=== PATIENT | female | born 1945 | race Caucasian/White ===

== ENCOUNTER 2023-10-12 16:06 | Inpatient (IN) ==
--- NOTE | 2023-10-12 16:32 | ED Triage Note ---
Date of Service October 12, 2023 Provider in Triage Author: Clementina Soto History of Present Illness This patient was briefly evaluated while in triage. An abbreviated physical exam was performed. This patient is a 77-year-old Female who presents to the ED for evaluation of indigestion that is worsening and is now chest pain, coughing, and difficulty breathing. Physical Exam CONSTITUTIONAL: in some distress, resting comfortably SKIN: pink, warm, dry CARDIAC: regular rate and rhythm RESPIRATORY: minimal air movement noted, small shallow breaths, 84RA sat. ABDOMEN: + TTP, epigastric pain NEURO: no neuro deficits, alert and oriented x 3 Initial orders for labs and / or imaging were placed and patient was placed in the waiting area until a bed is available. Please see further documentation for the full ED course.
--- NOTE | 2023-10-12 17:06 | Emergency Department Note ---
Impression & Plan Hypoxic respiratory failure, Cardiogenic shock, Acute hypotension ED Provider Note NAME: NEREYDA BAEZ AGE: 77 SEX: F : 1945 ARRIVES VIA: Walk-In INFORMANT: Patient ED PROVIDER(S): Jayjay Lutz DO CHIEF COMPLAINT: shortness of breath and chest pain HPI: Patient is a 77-year-old female who presents to the ER for symptoms that started today around 12:00 midsternal with chest pain. It is worse with twisting, turning, bending, and breathing. Describes it as a sharp pain. Does have associated shortness of breath. She has a cough and congestion which started around 3 PM. Admits to some epigastric abdominal pain. No nausea or vomiting. No dysuria, urgency, or frequency. No other exacerbating or remitting factors. Normally does not wear oxygen. No recent trips or travel. No history of blood clots, coughing up blood or history of clotting disorders. ADDITIONAL HISTORY OBTAINED: Per HPI Chronic Medical/Social Conditions Affecting Care: Per HPI PAST MEDICAL HISTORY:See Below PAST SURGICAL HISTORY:See Below FAMILY HISTORY:See Below SOCIAL HISTORY:See Below HOME MEDICATIONS:See Below ALLERGIES:See Below VITALS:See Below PHYSICAL EXAMINATION: GENERAL: Sitting up in bed, alert, well appearing, well nourished, no distress, non-toxic EYE EXAM: normal conjunctiva. OROPHARYNX: mucous membranes are moist NECK: supple, no nuchal rigidity, no adenopathy, non-tender CHEST: Reproducible anterior chest wall pain over top of sternum LUNGS: Clear to auscultation. Normal chest wall mechanics HEART: no murmurs, S1 normal and S2 normal ABDOMEN: abdomen soft, non-tender, normo-active bowel sounds, no masses, no rebound or guarding. UPPER EXTREMITIES: upper extremities are grossly normal. LOWER EXTREMITIES: No pitting edema. Calves are equal bilateral NEURO EXAM: Normal sensorium, cranial nerves II-XII grossly intact, normal speech, no gross weakness of arms, no gross weakness of legs. MEDICAL DECISION MAKING: Patient is a 77-year-old female who presents ER for above-stated complaint. Patient was brought in for chest pain which started around 12 PM. Shortness of breath then followed around 3 PM. Upon presentation to the ER she was found to be hypoxic and became tachycardic, tachypneic, and mentation deteriorated to the point where she would moan to sternal rub. She was moved from A10 to B1. At this point she was intubated with ketamine and rocuronium. Her EKG did show a new left bundle. Repeat EKG showed a widened QRS. I did discuss with the prior to intubation and patient is a full code. Patient was given calcium and bicarb as I believed it to be a sinus tachycardia with a widened QRS. Following the bicarb and calcium QRS did shrink and did appear to be consistent with sinus tachycardia. Dr. Massey did review this and agreed that he favored it was a sinus tach. Epinephrine was titrated up slightly. Heart alert was called due to the new left bundle in the setting of chest pain and new onset CHF. Patient was evaluated by Dr. Plascencia and elected to take her to the [facility]. Do favor the hypoxia was secondary to the pulmonary edema shown on the chest x-ray. Patient was also placed on insulin drip due to elevated blood sugars in the 400s. Did consider PE and CT angio was ordered but patient was too unstable to go to CT and once she stabilized I discussed this with cardiology and I did favor that this was most likely cardiac in nature as opposed to PE. Favor CHF/pulmonary edema is causing the hypoxia. Interventional cardiology would prefer to go to [facility] and then CTA afterwards. Patient was taken up emergently to [facility]. Discussed with the hospitalist as well for further evaluation management treatment Consults/Care Managements Discussions: Per [facility] Triage Nursing notes reviewed. Limited review of prior medical records performed Vital Signs: reviewed and remarkable for hypoxic and tachy Differential diagnosis: Differential diagnoses includes but is not limited to pneumonia, bronchitis, COPD/Asthma exacerbation, pneumothorax, pulmonary embolism, congestive heart failure, acute coronary syndrome ER treatment provided: See below Diagnostics interpreted by me include EKG and cardiac monitoring as listed below: -Cardiac Monitoring: An order was placed for continuous cardiac monitoring. The monitor shows a rate of 121 with sinus rhythm. -ECG: Sinus tachycardia rate of 120 Left axis No PVCs Septal Q waves ST depressions in the lateral leads as well as T wave inversions as well as ST depressions in T wave inversions in the high lateral leads Sinus tachycardia rate no 136 Left bundle branch block Wide-complex QRS at 574 ST depressions in the lateral leads as well as the high lateral leads -Laboratory studies:Interpreted by me as stated above in MDM and shown below. Imaging studies: Xrays: As interpreted by me: Portable AP upright 1 view of the chest shows pulmonary edema Portable AP upright 1 view the chest shows worsening pulmonary edema with a ET tube in place CTs show: none Procedures:EM PROCEDURE NOTE - Endotracheal Intubation PROCEDURE NOTE: Informed consent was obtained by the . Verify Correct Patient: yes Procedure: Endotracheal intubation Indication: Respiratory failure hypoxia The procedure was done emergently. Description of the Procedure: The patient was seen and properly identified. The patient was pre-oxygenated and intubated after rapid sequence induction with meds: Rocuronium and ketamine. Intubation was performed using a glide scope blade and a 7.5 cuffed endotracheal tube. The tube was visualized going through the cords and secured with the 24 cm ciera at the lips. The patient had good bilateral breath sounds in the axillae with good chest rise. Proper ET tube placement was confirmed by end tidal CO2 detector. The patient tolerated the procedure well. Critical Care: I have personally spent 80 minutes of critical care time in the direct management of this patient. This includes bedside care, interpretation of diagnostic studies, and testing, discussion with consultants, patient, and family members, and other required patient management activities. This 80 minutes is in excess of all separately billable procedures. Past Med/Surg History Medical History Stroke Family History Mother Stroke Diabetes Myocardial infarction Father Myocardial infarction Sister Diabetes Brother Diabetes Social History Smoking Status: Unknown if ever smoked Hx Alcohol Use: No Hx Substance Use: No Preferred Language: Swedish Communication Ability Comment: intubated sedated Shirt Folder Required: No Beliefs That Will Affect Care: None marital status: current occupational status: retired current occupation: former cook at [email or web address] How many Children do You have: 4 Allergies Allergies Allergy/AdvReac Type Severity Reaction Status Date / Time No Known Allergies Allergy Unknown NONE KNOWN Verified 04/15/22 09:04 Home Meds Home Medications Medication Instructions Recorded Confirmed aspirin 81 mg chewable tablet 81 mg PO DAILY 03/11/22 10/12/23 atorvastatin 20 mg tablet 20 mg PO DAILY 03/11/22 10/12/23 lisinopril 20 1 tab PO DAILY 03/11/22 10/12/23 mg-hydrochlorothiazide 12.5 mg tablet metformin 1,000 mg tablet 1,000 mg PO BID 03/11/22 10/12/23 pantoprazole 40 mg tablet,delayed 40 mg PO DAILY 03/11/22 10/12/23 release insulin glargine 100 unit/mL (3 50 unit subcut QPM 03/13/22 10/12/23 mL) subcutaneous pen (Lantus Solostar U-100 Insulin) alendronate 70 mg tablet 70 mg PO WK 10/12/23 10/12/23 dulaglutide 0.75 mg/0.5 mL 0.75 mg subcut WK 10/12/23 10/12/23 subcutaneous pen injector (Trulicity) famotidine 20 mg tablet 20 mg PO BID 10/12/23 10/12/23 liraglutide 0.6 mg/0.1 mL (18 mg/3 1.2 mg subcut DAILY 10/12/23 10/12/23 mL) subcutaneous pen injector (Victoza 2-Sancho) Results & Data (ED) Vital Signs Vital Signs - 24 hr 10/12/23 16:32 10/12/23 16:38 10/12/23 17:14 Temperature 36.8 C Temperature Source Temporal Artery Scan Pulse Rate 117 H 142 H Pulse Rate from SpO2 Sensor Respiratory Rate 18 22 Respiratory Effort / Characteristics Non-Labored Spontaneous Respiratory Depth Normal Blood Pressure 127/85 Blood Pressure Mean 99 Blood Pressure Position Sitting Pulse Oximetry 86 L 86 L Oxygen Delivery Method Room Air Oxygen Flow Rate 0 Fraction of Inspired Oxygen Sepsis Recent Fever Within 48 Hours No Sepsis New/Unexplained Change in Mental Status N/A Sepsis Action Taken by Nursing No Action Required End-Tidal CO2 Oxygen Flow Rate - Titration 3 Pulse Oximetry Post Tiitration 91 10/12/23 17:15 10/12/23 17:18 10/12/23 17:19 Temperature Temperature Source Pulse Rate 140 H 143 H 140 H Pulse Rate from SpO2 Sensor Respiratory Rate 22 26 H Respiratory Effort / Characteristics Respiratory Depth Blood Pressure Blood Pressure Mean Blood Pressure Position Pulse Oximetry Oxygen Delivery Method Oxygen Flow Rate Fraction of Inspired Oxygen Sepsis Recent Fever Within 48 Hours Sepsis New/Unexplained Change in Mental Status Sepsis Action Taken by Nursing End-Tidal CO2 Oxygen Flow Rate - Titration Pulse Oximetry Post Tiitration 10/12/23 17:19 10/12/23 17:20 10/12/23 17:22 Temperature Temperature Source Pulse Rate 138 H 133 H Pulse Rate from SpO2 Sensor Respiratory Rate 28 H 33 H Respiratory Effort / Characteristics Respiratory Depth Blood Pressure Blood Pressure Mean 95 Blood Pressure Position Pulse Oximetry Oxygen Delivery Method Oxygen Flow Rate Fraction of Inspired Oxygen Sepsis Recent Fever Within 48 Hours Sepsis New/Unexplained Change in Mental Status Sepsis Action Taken by Nursing End-Tidal CO2 Oxygen Flow Rate - Titration Pulse Oximetry Post Tiitration 10/12/23 17:22 10/12/23 17:22 10/12/23 17:25 Temperature Temperature Source Pulse Rate 124 H Pulse Rate from SpO2 Sensor Respiratory Rate 35 H Respiratory Effort / Characteristics Respiratory Depth Blood Pressure 98/71 L 98/71 L Blood Pressure Mean 73 73 Blood Pressure Position Pulse Oximetry Oxygen Delivery Method Oxygen Flow Rate Fraction of Inspired Oxygen Sepsis Recent Fever Within 48 Hours Sepsis New/Unexplained Change in Mental Status Sepsis Action Taken by Nursing End-Tidal CO2 Oxygen Flow Rate - Titration Pulse Oximetry Post Tiitration 10/12/23 17:30 10/12/23 17:34 10/12/23 17:34 Temperature Temperature Source Pulse Rate 120 H 61 Pulse Rate from SpO2 Sensor Respiratory Rate 26 H 12 Respiratory Effort / Characteristics Respiratory Depth Blood Pressure 77/59 L Blood Pressure Mean 63 Blood Pressure Position Pulse Oximetry Oxygen Delivery Method Oxygen Flow Rate Fraction of Inspired Oxygen Sepsis Recent Fever Within 48 Hours Sepsis New/Unexplained Change in Mental Status Sepsis Action Taken by Nursing End-Tidal CO2 Oxygen Flow Rate - Titration Pulse Oximetry Post Tiitration 10/12/23 17:35 10/12/23 17:36 10/12/23 17:39 Temperature Temperature Source Pulse Rate 109 H 57 L Pulse Rate from SpO2 Sensor Respiratory Rate 20 Respiratory Effort / Characteristics Respiratory Depth Blood Pressure 100/74 Blood Pressure Mean 84 Blood Pressure Position Pulse Oximetry Oxygen Delivery Method Oxygen Flow Rate Fraction of Inspired Oxygen Sepsis Recent Fever Within 48 Hours Sepsis New/Unexplained Change in Mental Status Sepsis Action Taken by Nursing End-Tidal CO2 Oxygen Flow Rate - Titration Pulse Oximetry Post Tiitration 10/12/23 17:39 10/12/23 17:39 10/12/23 17:40 Temperature Temperature Source Pulse Rate 130 H 137 H Pulse Rate from SpO2 Sensor 137 H Respiratory Rate 21 20 Respiratory Effort / Characteristics Respiratory Depth Blood Pressure 100/74 Blood Pressure Mean 84 Blood Pressure Position Pulse Oximetry 91 Oxygen Delivery Method Oxygen Flow Rate Fraction of Inspired Oxygen Sepsis Recent Fever Within 48 Hours Sepsis New/Unexplained Change in Mental Status Sepsis Action Taken by Nursing End-Tidal CO2 Oxygen Flow Rate - Titration Pulse Oximetry Post Tiitration 10/12/23 17:40 10/12/23 17:45 10/12/23 17:45 Temperature 35.0 C L Temperature Source Pulse Rate 147 H Pulse Rate from SpO2 Sensor 147 H Respiratory Rate 20 Respiratory Effort / Characteristics Respiratory Depth Blood Pressure 95/54 L 102/70 Blood Pressure Mean 84 84 Blood Pressure Position Pulse Oximetry 99 Oxygen Delivery Method Oxygen Flow Rate Fraction of Inspired Oxygen Sepsis Recent Fever Within 48 Hours Sepsis New/Unexplained Change in Mental Status Sepsis Action Taken by Nursing End-Tidal CO2 39 Oxygen Flow Rate - Titration Pulse Oximetry Post Tiitration 10/12/23 17:50 10/12/23 17:50 10/12/23 17:55 Temperature 36.1 C L 36.5 C Temperature Source Pulse Rate 144 H 140 H Pulse Rate from SpO2 Sensor 144 H 139 H Respiratory Rate 20 20 Respiratory Effort / Characteristics Respiratory Depth Blood Pressure 93/74 L Blood Pressure Mean 80 Blood Pressure Position Pulse Oximetry 97 97 Oxygen Delivery Method Oxygen Flow Rate Fraction of Inspired Oxygen Sepsis Recent Fever Within 48 Hours Sepsis New/Unexplained Change in Mental Status Sepsis Action Taken by Nursing End-Tidal CO2 35 34 Oxygen Flow Rate - Titration Pulse Oximetry Post Tiitration 10/12/23 18:00 10/12/23 18:00 10/12/23 18:05 Temperature 36.7 C 36.9 C Temperature Source Pulse Rate 136 H 127 H Pulse Rate from SpO2 Sensor 136 H 129 H Respiratory Rate 20 20 Respiratory Effort / Characteristics Respiratory Depth Blood Pressure 127/83 Blood Pressure Mean 93 Blood Pressure Position Pulse Oximetry 100 100 Oxygen Delivery Method Oxygen Flow Rate Fraction of Inspired Oxygen Sepsis Recent Fever Within 48 Hours Sepsis New/Unexplained Change in Mental Status Sepsis Action Taken by Nursing End-Tidal CO2 34 28 Oxygen Flow Rate - Titration Pulse Oximetry Post Tiitration 10/12/23 18:05 10/12/23 18:10 10/12/23 18:10 Temperature 36.9 C Temperature Source Pulse Rate 163 H Pulse Rate from SpO2 Sensor 102 H Respiratory Rate 20 20 Respiratory Effort / Characteristics Respiratory Depth Blood Pressure 94/64 L Blood Pressure Mean 76 Blood Pressure Position Pulse Oximetry 96 100 Oxygen Delivery Method Oxygen Flow Rate Fraction of Inspired Oxygen 80 Sepsis Recent Fever Within 48 Hours Sepsis New/Unexplained Change in Mental Status Sepsis Action Taken by Nursing End-Tidal CO2 34 41 Oxygen Flow Rate - Titration Pulse Oximetry Post Tiitration 10/12/23 18:15 Temperature 37.0 C Temperature Source Pulse Rate 155 H Pulse Rate from SpO2 Sensor 139 H Respiratory Rate 20 Respiratory Effort / Characteristics Respiratory Depth Blood Pressure Blood Pressure Mean Blood Pressure Position Pulse Oximetry 95 Oxygen Delivery Method Oxygen Flow Rate Fraction of Inspired Oxygen Sepsis Recent Fever Within 48 Hours Sepsis New/Unexplained Change in Mental Status Sepsis Action Taken by Nursing End-Tidal CO2 29 Oxygen Flow Rate - Titration Pulse Oximetry Post Tiitration Laboratory Data 10/12/23 17:25 10/12/23 19:49 Lab Results 10/12/23 10/12/23 10/12/23 Range/Units 17:25 17:29 17:49 WBC 20.83 H (4.8-10.8) K/ul RBC 5.74 H (4.20-5.40) M/uL Hgb 15.5 (12.0-16.0) g/dl POC Hgb 17.7 H (12.0-16.0) g/dl Hct 49.5 H (37.0-47.0) % POC Hct 52 H (37-47) % MCV 86.2 (80.0-100.0) fL MCH 27.0 (25.0-34.0) pg MCHC 31.3 L (32.0-36.0) g/dL RDW Std Deviation 46.2 (36.4-46.3) fL RDW Coeff of Genie 14.7 H (11.5-14.5) % Plt Count 257 (130-400) K/uL MPV 11.8 (9.4-12.4) fL Neutrophils % (Manual) 68 % Lymphocytes % (Manual) 9 % Monocytes % (Manual) 2 % Neutrophils # (Manual) 14.16 H (1.40-6.50) K/uL Total Absolute Neuts 14.16 H (1.4-6.5) K/uL Lymphocytes # (Manual) 1.87 (1.2-3.4) K/uL Total Abs Lymphocytes 6.25 H (1.2-3.4) K/uL Monocytes # (Manual) 0.42 (0.11-0.59) K/uL Large Granular Lymphs 21 % # Lrg Granular Lymphs 4.37 K/uL PT (9.0-12.0) Seconds INR (0.9-1.1) APTT (21-31) Seconds PTT Ratio POC pH (7.35-7.45) POC pCO2 (35-46) mmHg POC pO2 (80-95) mmHg POC HCO3 (19-24) keyshawn/L POC Base Excess (-9-1.8) keyshawn/L POC ABG O2 Sat (90-95) % VBG pH 7.13 L (7.36-7.41) VBG pCO2 64 H (38-50) mmHg VBG pO2 37 mmHg VBG HCO3 21 mmol/L VBG O2 Saturation < 60.0 % VBG Base Excess -8.8 mEq/L POC Sodium 138 (135-144) mmol/L Sodium 138 (136-145) mmol/L POC Potassium 5.1 H (3.3-5.0) mmol/L Potassium 4.9 (3.5-5.1) mmol/L POC Chloride 107 (101-112) mmol/L Chloride 103 (98-107) mmol/L Carbon Dioxide 21 (21-32) mmol/L POC Total CO2 22 L (24-31) mmol/L Anion Gap 14 H (3-11) POC Anion Gap 15.0 L (16-25) mmol/L POC BUN 43 H (7-18) mg/dl BUN 37 H (6-23) mg/dl Creatinine 1.60 H (0.6-1.2) mg/dl POC Creatinine 1.5 H (0.6-1.3) mg/dl Est Cr Clr Drug Dosing Not Reportable Est GFR ( Amer) 35.7 ml/min Est GFR (Non-Af Amer) 30.8 ml/min BUN/Creatinine Ratio 23.1 H (10-20) Glucose 351 H* (70-99(Fasting)) mg/dl POC Glucose (70-99) mg/dl POC Glucose (other) 355 H* (70-99) mg/dl Estimat Average Glucose 137 mg/dl Hemoglobin A1c 6.4 H (4.5-5.6) % Lactate 8.5 H* (0.4-2.0) mmol/L Calcium 9.6 (8.6-10.3) mg/dl POC Ioniz Calcium Dena 1.09 L (1.12-1.32) mmol/l Phosphorus 3.9 (2.5-4.9) mg/dl Magnesium 2.0 (1.7-2.4) mg/dl Total Bilirubin 0.5 (0.2-1.0) mg/dl AST 35 (13-39) U/L ALT 24 (7-52) U/L Alkaline Phosphatase 60 (34-104) U/L Troponin I High Sens 895.8 H* (0-14) pg/ml Total Protein 8.2 (6.0-8.3) gm/dl Albumin 4.8 (3.4-5.0) gm/dl Globulin 3.4 (2.5-4.0) gm/dl Albumin/Globulin Ratio 1.4 (0.9-2) Lipase 14 (11-82) U/L Procalcitonin 0.06 (0-0.5) ng/ml Urine Color Urine Appearance (Clear) Urine pH (4.5-7.5) Ur Specific Dum[place] (1.000-1.030) Urine Protein (Negative) Urine Glucose (UA) (Negative) Urine Ketones (Negative) Urine Blood (Negative) Urine Nitrite (Negative) Urine Bilirubin (Negative) Urine Urobilinogen (Negative) Ur Leukocyte Esterase (Negative) 10/12/23 10/12/23 10/12/23 Range/Units 17:55 18:00 18:12 WBC (4.8-10.8) K/ul RBC (4.20-5.40) M/uL Hgb (12.0-16.0) g/dl POC Hgb 13.3 (12.0-16.0) g/dl Hct (37.0-47.0) % POC Hct 39 (37-47) % MCV (80.0-100.0) fL MCH (25.0-34.0) pg MCHC (32.0-36.0) g/dL RDW Std Deviation (36.4-46.3) fL RDW Coeff of Genie (11.5-14.5) % Plt Count (130-400) K/uL MPV (9.4-12.4) fL Neutrophils % (Manual) % Lymphocytes % (Manual) % Monocytes % (Manual) % Neutrophils # (Manual) (1.40-6.50) K/uL Total Absolute Neuts (1.4-6.5) K/uL Lymphocytes # (Manual) (1.2-3.4) K/uL Total Abs Lymphocytes (1.2-3.4) K/uL Monocytes # (Manual) (0.11-0.59) K/uL Large Granular Lymphs % # Lrg Granular Lymphs K/uL PT 10.3 (9.0-12.0) Seconds INR 0.9 (0.9-1.1) APTT 25 (21-31) Seconds PTT Ratio 0.9 POC pH 7.28 L (7.35-7.45) POC pCO2 42 (35-46) mmHg POC pO2 125 H (80-95) mmHg POC HCO3 20 (19-24) keyshawn/L POC Base Excess -7.0 (-9-1.8) keyshawn/L POC ABG O2 Sat 98.0 H (90-95) % VBG pH (7.36-7.41) VBG pCO2 (38-50) mmHg VBG pO2 mmHg VBG HCO3 mmol/L VBG O2 Saturation % VBG Base Excess mEq/L POC Sodium 141 (135-144) mmol/L Sodium (136-145) mmol/L POC Potassium 3.2 L (3.3-5.0) mmol/L Potassium (3.5-5.1) mmol/L POC Chloride (101-112) mmol/L Chloride (98-107) mmol/L Carbon Dioxide (21-32) mmol/L POC Total CO2 21 L (24-31) mmol/L Anion Gap (3-11) POC Anion Gap (16-25) mmol/L POC BUN (7-18) mg/dl BUN (6-23) mg/dl Creatinine (0.6-1.2) mg/dl POC Creatinine (0.6-1.3) mg/dl Est Cr Clr Drug Dosing Est GFR ( Amer) ml/min Est GFR (Non-Af Amer) ml/min BUN/Creatinine Ratio (10-20) Glucose (70-99(Fasting)) mg/dl POC Glucose 432 H* (70-99) mg/dl POC Glucose (other) (70-99) mg/dl Estimat Average Glucose mg/dl Hemoglobin A1c (4.5-5.6) % Lactate (0.4-2.0) mmol/L Calcium (8.6-10.3) mg/dl POC Ioniz Calcium Dena (1.12-1.32) mmol/l Phosphorus (2.5-4.9) mg/dl Magnesium (1.7-2.4) mg/dl Total Bilirubin (0.2-1.0) mg/dl AST (13-39) U/L ALT (7-52) U/L Alkaline Phosphatase (34-104) U/L Troponin I High Sens (0-14) pg/ml Total Protein (6.0-8.3) gm/dl Albumin (3.4-5.0) gm/dl Globulin (2.5-4.0) gm/dl Albumin/Globulin Ratio (0.9-2) Lipase (11-82) U/L Procalcitonin (0-0.5) ng/ml Urine Color Yellow Urine Appearance Clear (Clear) Urine pH 5.0 (4.5-7.5) Ur Specific Dum[place] 1.022 (1.000-1.030) Urine Protein Negative (Negative) Urine Glucose (UA) Trace H (Negative) Urine Ketones Negative (Negative) Urine Blood Negative (Negative) Urine Nitrite Negative (Negative) Urine Bilirubin Negative (Negative) Urine Urobilinogen Negative (Negative) Ur Leukocyte Esterase Negative (Negative) Administered Medications Epinephrine HCl () 4 mg in 254 mls @ 50.673 mls/hr IV .Q5H1M [facility]; Protocol Stop: 11/11/23 17:59 Last Admin: 10/12/23 21:25 Dose: 0.04 mcg/kg/min, 10.1 mls/hr Documented By: CLEMENTE Co-signed By: ALEXANDRA Fentanyl Citrate (Fentanyl Citrate) 2,500 mcg in 250 mls @ 2.5 mls/hr IV .Q96H [facility]; Protocol Stop: 10/26/23 17:59 Last Titration: 10/12/23 19:20 Dose: 75 mcg/hr, 7.5 mls/hr Documented By: CLEMENTE Co-signed By: ALEXANDRA Admin: 10/12/23 17:57 Dose: 25 mcg/hr, 2.5 mls/hr Documented By: WILY Co-signed By: KING Propofol (Diprivan) 1,000 mg in 100 mls @ 7.98 mls/hr IV .[id number] [facility]; Protocol Stop: 10/15/23 20:14 Last Admin: 10/12/23 21:26 Dose: 20 mcg/kg/min, 8 mls/hr Documented By: CLEMENTE Co-signed By: ALEXANDRA Insulin Human Regular 250 (units/ Sodium Chloride) 250 mls @ 2.5 mls/hr IV .Q24H [facility]; Protocol Stop: 11/11/23 20:59 Last Admin: 10/12/23 21:14 Dose: 2.5 units/hr, 2.5 mls/hr Documented By: CLEMENTE Co-signed By: DIANA Norepinephrine Bitartrate (Levophed/D5w) 4 mg in 250 mls @ 12.469 mls/hr IV .Q20H3M [facility]; Protocol Stop: 11/11/23 20:59 Last Admin: 10/12/23 21:12 Dose: 0.05 mcg/kg/min, 12.5 mls/hr Documented By: CLEMENTE Co-signed By: DIANA Insulin Aspart (Insulin Aspart Per Unit Charge) 0 units SC Q6 [facility] Stop: 11/11/23 20:59 Last Admin: 10/12/23 21:27 Dose: Not Given Documented By: CLEMENTE Miscellaneous (Icu Protocol For Hyperglycemia) 1 each N/A ACHS [facility] Stop: 10/14/23 20:59 Last Admin: 10/12/23 21:27 Dose: Not Given Documented By: CLEMENTE Discontinued Medications Calcium Gluconate (Calcium Gluconate 1000 Mg/60 Ml Nss) Confirm Administered Dose 1,000 mg IV .STK-MED ONE Stop: 10/12/23 17:29 Last Admin: 10/12/23 17:45 Dose: 1,000 mg Documented By: WILY Cefepime HCl (Cefepime 2,000 Mg/20 Ml Vial) Confirm Administered Dose 2,000 mg .ROUTE .STK-MED ONE Stop: 10/12/23 17:49 Last Admin: 10/12/23 21:09 Dose: Not Given Documented By: CLEMENTE Fentanyl Citrate (Fentanyl Citrate Pf 100 Mcg/2 Ml Vial) 75 mcg IV NOW STA Stop: 10/12/23 17:53 Last Admin: 10/12/23 21:23 Dose: Not Given Documented By: CLEMENTE Fentanyl Citrate (Fentanyl Citrate Pf 100 Mcg/2 Ml Vial) Confirm Administered Dose 100 mcg .ROUTE .STK-MED ONE Stop: 10/12/23 17:54 Last Admin: 10/12/23 19:05 Dose: Not Given Documented By: ELIZA Heparin Sodium (Porcine) (Heparin (Porcine) 1000 Unit/Ml 10 Ml ([facility] Use Only)) Confirm Administered Dose 10,000 units .ROUTE .[facility]-MED ONE Stop: 10/12/23 17:54 Last Admin: 10/12/23 18:58 Dose: Not Given Documented By: ELIZA Heparin Sodium/Sodium Chloride (Heparin In Nss Infusion 1000 Unit/500 Ml (2 U/Ml) Bag) Confirm Administered Dose 3,000 units IV .[facility]-MED ONE Stop: 10/12/23 17:54 Last Admin: 10/12/23 18:58 Dose: 3,000 units Documented By: DANNY Ceftriaxone Sodium (Rocephin) 2,000 mg in 50 mls @ 100 mls/hr IV NOW Stop: 10/12/23 17:44 Last Admin: 10/12/23 21:23 Dose: Not Given Documented By: CLEMENTE Cefepime HCl (Maxipime) 2,000 mg in 20 mls @ 5 mls/min IV NOW ; Protocol Stop: 10/12/23 17:50 Last Admin: 10/12/23 17:57 Dose: Not Given Documented By: WILY Vancomycin HCl 1,500 mg/ (Sodium Chloride) 530 mls @ 200 mls/hr IV NOW ONE Stop: 10/12/23 20:25 Last Admin: 10/12/23 21:09 Dose: 200 mls/hr Documented By: CLEMENTE Midazolam HCl (Versed) 125 mg in 250 mls @ 2 mls/hr IV .Q96H [facility]; Protocol Stop: 11/11/23 17:59 Last Admin: 10/12/23 18:11 Dose: 1 mg/hr, 2 mls/hr Documented By: WILY Co-signed By: KING Insulin Human Regular (Novolin-R Insulin Per Unit Charge) 5 units IV NOW STA Stop: 10/12/23 17:45 Last Admin: 10/12/23 18:01 Dose: 5 units Documented By: WILY Co-signed By: KING Ioversol (Optiray 320 125ml) 115 ml IV ONCE ONE Stop: 10/12/23 20:33 Last Admin: 10/12/23 20:32 Dose: 115 ml Documented By: LOUIS Midazolam HCl (Midazolam Hcl 1 Mg/Ml 2ml Vial) Confirm Administered Dose 2 mg .ROUTE .STK-MED ONE Stop: 10/12/23 17:54 Last Admin: 10/12/23 18:58 Dose: Not Given Documented By: ELIZA Nicardipine HCl (Nicardipine Hcl Inj 2.5 Mg/Ml 10 Ml Amp) Confirm Administered Dose 25 mg .ROUTE .STK-MED ONE Stop: 10/12/23 17:54 Last Admin: 10/12/23 18:59 Dose: Not Given Documented By: ELIZA Nitroglycerin/Dextrose (Nitroglycerin/D5w 100mcg/Ml 20ml Syr) Confirm Administered Dose 2,000 mcg .ROUTE .STK-MED ONE Stop: 10/12/23 17:55 Last Admin: 10/12/23 18:59 Dose: Not Given Documented By: ELIZA Norepinephrine Bitartrate (Norepinephrine/D5w 4 Mg/250 Ml) Confirm Administered Dose 4 mg IV .STK-MED ONE Stop: 10/12/23 20:58 Last Admin: 10/12/23 21:26 Dose: Not Given Documented By: CLEMENTE Phenylephrine HCl (Phenylephrine 100mcg/Ml 5ml Syr) Confirm Administered Dose 100 mcg .ROUTE .STK-MED ONE Stop: 10/12/23 18:27 Last Admin: 10/12/23 18:59 Dose: 100 mcg Documented By: ELIZA Co-signed By: NISHA Propofol (Propofol Iv Emulsion 10 Mg/Ml 100 Ml Vial) Confirm Administered Dose 1,000 mg IV .STK-MED ONE Stop: 10/12/23 20:06 Last Admin: 10/12/23 21:26 Dose: Not Given Documented By: CLEMENTE Sodium Bicarbonate (Sodium Bicarb 8.4% Inj 50 Meq/50 Ml Syr) Confirm Administered Dose 50 meq IV .STK-MED ONE Stop: 10/12/23 17:25 Last Admin: 10/12/23 17:27 Dose: 50 meq Documented By: WILY Sodium Bicarbonate (Sodium Bicarb 8.4% Inj 50 Meq/50 Ml Syr) Confirm Administered Dose 50 meq IV .STK-MED ONE Stop: 10/12/23 17:29 Last Admin: 10/12/23 17:45 Dose: 50 meq Documented By: [facility] Imaging Data Radiologist's Impression: Chest X-Ray 10/12/23 16:41 XR chest 1V portable HISTORY: 77 years-old Female hypoxia acute hypoxia COMPARISON: 04/27/2009 TECHNIQUE: AP view of the chest FINDINGS: Cardiac silhouette is enlarged. Pulmonary vascular congestion. Bilateral mixed interstitial and alveolar opacities. No pneumothorax or large pleural effusion. Bones appear grossly intact. IMPRESSION: Mixed interstitial and alveolar opacities suggest pulmonary edema versus multifocal pneumonia. ACT 112: Negative or not required by law. The above report was generated using voice recognition software. It may contain grammatical, syntax or spelling errors. Electronically signed by: Wong Mcpherson M.D. 10/12/2023 5:13 PM Chest CTA 10/12/23 16:59 Exam(s): CTA CHEST IV Amt: 115 ml optiray 320 EXAM: CT Angiography Chest With Intravenous Contrast CLINICAL HISTORY: Reason for exam: PE/DAH. TECHNIQUE: Axial computed tomographic angiography images of the chest with intravenous contrast. CTDI is 94.01 mGy and DLP is 2237.92 mGy-cm. Automated exposure control was utilized for the study. A dose lowering technique was utilized adhering to the principles of ALARA. MIP reconstructed images were created and reviewed. COMPARISON: No relevant prior studies available. FINDINGS: Pulmonary arteries: Unremarkable. No acute pulmonary embolism. Aorta: No acute findings. No thoracic aortic aneurysm. Lungs: See below. Pleural space: Bilateral parapneumonic effusions. Heart: Unremarkable. No cardiomegaly. No significant pericardial effusion. No evidence of RV dysfunction. Bones/joints: See above. Soft tissues: Unremarkable. Lymph nodes: Unremarkable. No enlarged lymph nodes. Tubes, lines and devices: Feeding tube terminates in the stomach. Endotracheal tube terminates in the trachea. Dependent airspace consolidations, consistent with severe multilobar pneumonia. IMPRESSION: 1. No acute pulmonary embolism. 2. Bilateral parapneumonic effusions. 3. Feeding tube terminates in the stomach. 4. Endotracheal tube terminates in the trachea. Dependent airspace consolidations, consistent with severe multilobar pneumonia. Electronically signed by: Varinder Danielle MD 10/12/23 20:57 PM Abdomen/Pelvis CT 10/12/23 17:15 Exam(s): CT ABDOMEN + PELVIS With Contrast IV Amt: 115 ml optiray 320 EXAM: CT Abdomen and Pelvis With Intravenous Contrast CLINICAL HISTORY: Reason for exam: abd pain. TECHNIQUE: Axial computed tomography images of the abdomen and pelvis with intravenous contrast. CTDI is 94.01 mGy and DLP is 2237.92 mGy-cm. Automated exposure control was utilized for the study. A dose lowering technique was utilized adhering to the principles of ALARA. CONTRAST: Patient received 115 ml optiray 320 of IV contrast COMPARISON: No relevant prior studies available. FINDINGS: Lung bases: Dependent airspace consolidations, correlate for aspiration pneumonia. Small bilateral pleural effusions. ABDOMEN: Liver: Unremarkable. No mass. Gallbladder and bile ducts: Unremarkable. No calcified stones. No ductal dilation. Pancreas: Unremarkable. No mass. No ductal dilation. Spleen: Unremarkable. No splenomegaly. Adrenals: Unremarkable. No mass. Kidneys and ureters: Unremarkable. No solid mass. No hydronephrosis. Stomach and bowel: Diverticulosis, without acute diverticulitis. No small bowel obstruction. PELVIS: Appendix: No findings to suggest acute appendicitis. Bladder: Belle catheter terminates in the urinary bladder. Reproductive: Unremarkable as visualized. ABDOMEN and PELVIS: Intraperitoneal space: Unremarkable. No free air. No significant fluid collection. Bones/joints: No acute fracture. No dislocation. Soft tissues: Unremarkable. Vasculature: Unremarkable. No abdominal aortic aneurysm. Lymph nodes: Unremarkable. No enlarged lymph nodes. Tubes, lines and devices: Feeding tube terminates in the stomach. IMPRESSION: 1. Dependent airspace consolidations, correlate for aspiration pneumonia. Small bilateral pleural effusions. 2. Feeding tube terminates in the stomach. 3. Diverticulosis, without acute diverticulitis. No small bowel obstruction. Electronically signed by: Varinder Danielle MD 10/12/23 20:55 PM Chest X-Ray 10/12/23 17:42 XR chest 1V portable CLINICAL HISTORY: ETT COMPARISON STUDY: Chest radiograph performed earlier today. FINDINGS: The tip of the endotracheal tube is 3.7 cm above the shad. There is a trace left pleural effusion. There is no pneumothorax. Significant progression of interstitial and alveolar opacities is noted. Cardiomediastinal silhouette is stable. IMPRESSION: 1. Satisfactory positioning of the endotracheal tube. 2. Significant progression of interstitial and alveolar opacities. The findings favor alveolar and interstitial pulmonary edema. Multifocal pneumonia could appear similar. 3. Trace left pleural effusion. ACT 112: Negative or not required by law. Electronically signed by: Arthur Nash M.D. 10/12/2023 6:28 PM Discharge Plan Visit Data Chief Complaint: Abdominal Pain Stated Complaint: INDIGESTION,COUGH,CHEST PAIN,SOB ED Provider: Jayjay Lutz Discharge Problem: Hypoxic respiratory failure, Cardiogenic shock, Acute hypotension Discharge Problem: Hypoxic respiratory failure Qualifiers: Chronicity: acute Qualified Code(s): J96.01 - Acute respiratory failure with hypoxia
--- NOTE | 2023-10-12 17:14 | XRay Report ---
XR chest 1V portable HISTORY: 77 years-old Female hypoxia acute hypoxia COMPARISON: 04/27/2009 TECHNIQUE: AP view of the chest FINDINGS: Cardiac silhouette is enlarged. Pulmonary vascular congestion. Bilateral mixed interstitial and alveo lar opacities. No pneumothorax or large pleural effusion. Bones appear grossly intact. IMPRESSION: Mixed interstitial and alveolar opacities suggest pulmonary edema versus multifocal pneum onia. ACT 112: Negative or not required by law. The above report was generated using voice recognition software. It may contain grammatical, syntax o r spelling errors. Electronically signed by: Wong Mcpherson M.D. 10/12/2023 5:13 PM
[2023-10-12] MEDS: SODIUM BICARB 8.4% INJ 50 MEQ/50 ML SYR IV ONE ×2 (17:27→17:45)
[2023-10-12 17:37] LABS: Base Excess VBG -8.8 mEq/L; HCO3 VBG 21 mmol/L; Oxygen Saturation VBG < 60.0 %; PCO2 VBG 64 mmHg (38-50); PO2 VBG 37 mmHg; pH VBG 7.13 (7.36-7.41)
[2023-10-12 17:41] LABS: iSTAT Creatinine 1.5 mg/dl (0.6-1.3); iSTAT Hemoglobin 17.7 g/dl (12.0-16.0); iSTAT Ionized Calcium 1.09 mmol/l (1.12-1.32); iSTAT Potassium 5.1 mmol/L (3.3-5.0)
[2023-10-12 17:43] LABS: Hematocrit (blood only) 49.5 % (37.0-47.0); Hemoglobin 15.5 g/dl (12.0-16.0); Mean Corpuscular Hgb Conc 31.3 g/dL (32.0-36.0); Mean Corpuscular Volume 86.2 fL (80.0-100.0); Mean Platelet Volume 11.8 fL (9.4-12.4); Platelet Count 257 K/uL (130-400); RDW Coefficient of Variation 14.7 % (11.5-14.5); RDW Standard Deviation 46.2 fL (36.4-46.3); Red Blood Count 5.74 M/uL (4.20-5.40); White Blood Count 20.83 K/ul (4.8-10.8)
[2023-10-12] MEDS: CALCIUM GLUCONATE 1000 MG/60 ML NSS IV ONE (17:45)
[2023-10-12] MEDS ORDERED: VANCOMYCIN CONSULT ACTIVE PRN (17:47)
[2023-10-12] MEDS ORDERED: STAT IV Infusion **Titration per Protocol STA ×5 (17:49→22:11)
[2023-10-12] MEDS ORDERED: MIDAZOLAM BOLUS FROM BAG IV PRN (17:49)
[2023-10-12] MEDS: fentaNYL citrate 2,500 MCG/250 ML BAG IV SCH (17:57)
[2023-10-12] MEDS: CEFEPIME 2,000 MG/20 ML VIAL IV STA (17:57)
[2023-10-12] MEDS ORDERED: EPINEPHrine/NSS 4 MG/254 ML BAG IV SCH (18:00)
[2023-10-12 18:01] LABS: ALC (manual) 6.25 K/uL (1.2-3.4); ANC (manual) 14.16 K/uL (1.4-6.5); Large Granular Lymph # (manua 4.37 K/uL; Large Granular Lymph % (manual) 21 %; Lymphocytes # (manual) 1.87 K/uL (1.2-3.4); Lymphocytes % (manual) 9 %; Monocytes # (manual) 0.42 K/uL (0.11-0.59); Monocytes % (manual) 2 %; Neutrophils # (manual) 14.16 K/uL (1.40-6.50); Neutrophils % (manual) 68 %
[2023-10-12] MEDS: NovoLIN-R INSULIN PER UNIT CHARGE IV STA (18:01)
[2023-10-12] MEDS: MIDAZOLAM HCL 125 MG/250 ML BAG IV SCH (18:11)
[2023-10-12] MEDS ORDERED: GLUCAGON FOR INJ 1 MG VIAL SQ PRN (18:12)
[2023-10-12] MEDS ORDERED: CARBOHYDRATES FOR HYPOGLYCEMIA PO PRN (18:12)
[2023-10-12] MEDS ORDERED: GLUCOSE 40% GEL 15 GM TUBE PO PRN (18:12)
[2023-10-12] MEDS ORDERED: GLUCOSE 10 TAB/TUBE PO PRN (18:12)
[2023-10-12] MEDS ORDERED: INSULIN REGULAR 250 UNITS in SODIUM CHLORIDE 0.9% 247.5 ML IV SCH (18:15)
[2023-10-12 18:18] LABS: Alanine Aminotransferase 24 U/L (7-52); Albumin Globulin Ratio 1.4 (0.9-2); Albumin Level 4.8 gm/dl (3.4-5.0); Alkaline Phosphatase 60 U/L (34-104); Anion Gap 14 (3-11); Aspartate Aminotransferase 35 U/L (13-39); BUN Creatinine Ratio 23.1 (10-20); Bilirubin,Total 0.5 mg/dl (0.2-1.0); Blood Urea Nitrogen 37 mg/dl (6-23); Calcium 9.6 mg/dl (8.6-10.3); Carbon Dioxide 21 mmol/L (21-32); Chloride 103 mmol/L (98-107); Est GFR (African American) 35.7 ml/min; Est GFR (Non-African American) 30.8 ml/min; Globulin 3.4 gm/dl (2.5-4.0); Glucose 351 mg/dl (70-99(Fasting)); Lipase 14 U/L (11-82); Potassium 4.9 mmol/L (3.5-5.1); Sodium 138 mmol/L (136-145); Total Protein 8.2 gm/dl (6.0-8.3); Troponin I High Sensitivity 895.8 pg/ml (0-14)
[2023-10-12 18:25] LABS: iSTAT Arterial Blood Gas HCO3 20 meg/L (19-24); iSTAT Arterial Blood Gas pCO2 42 mmHg (35-46); iSTAT Arterial Blood Gas pH 7.28 (7.35-7.45); iSTAT Arterial Blood Gas pO2 125 mmHg (80-95); iSTAT Carbon Dioxide 21 mmol/L (24-31); iSTAT Hematocrit 39 % (37-47); iSTAT Hemoglobin 13.3 g/dl (12.0-16.0); iSTAT Potassium 3.2 mmol/L (3.3-5.0); iSTAT Sodium 141 mmol/L (135-144)
[2023-10-12 18:26] LABS: Appearance Urine Clear (Clear); Bilirubin Urine Negative (Negative); Blood Urine Negative (Negative); Color Urine Yellow; Glucose Urine UA Trace (Negative); Ketones Urine Negative (Negative); Leukocyte Esterase Urine Negative (Negative); Nitrite Urine Negative (Negative); Protein Urine Negative (Negative); Specific Gravity Urine 1.022 (1.000-1.030); Urobilinogen Urine Negative (Negative)
--- NOTE | 2023-10-12 18:29 | XRay Report ---
XR chest 1V portable CLINICAL HISTORY: ETT COMPARISON STUDY: Chest radiograph performed earlier today. FINDINGS: The tip of the endotracheal tube is 3.7 cm above the shad. There is a trace left pleural effusion. There is no pneumothorax. Significant progression of interstitial and alveolar opacities is noted. Cardiomediastinal silhouette is stable. IMPRESSION: 1. Satisfactory positioning of the endotracheal tube. 2. Significant progression of interstitial and alveolar opacities. The findings favor alveolar and in terstitial pulmonary edema. Multifocal pneumonia could appear similar. 3. Trace left pleural effusion. ACT 112: Negative or not required by law. Electronically signed by: Arthur Nash M.D. 10/12/2023 6:28 PM
--- NOTE | 2023-10-12 18:32 | History & Physical Report ---
Date of Service October 12, 2023 Assessment & Plan (1) Cardiogenic shock: Plan: Suspect cardiogenic shock, ACS. DDx includes multifocal pneumonia No prior infectious symptoms until noon day of presentation Approximate 12:00 patient developed substernal chest pain. Around 3 PM developed progressive cough shortness of breath and dyspnea DDx includes PE. CTA PE pending. No prior history of DVT/PE and patient is not on anticoagulation per family Rapid decompensation while in ER. Patient was intubated for airway protection Initial VBG 7.1 /37/21. Necql-wi-evwr ABG 7.2 8/128/20 on repeat Lactate 8.5 Troponin 895, trended Procalcitonin is negative Per family no prior history of chest pain, chest pressure, chest pain on exertion. Has had GERD symptoms without neck radiation which have been worse for the last few days - Leukocytosis of 20, and a large of 8, neutrophilic predominance but without granulocyte shift. Patient covered empirically with cefepime/vancomycin Patient on norepinephrine transfer to ER (2) Hypertension: Plan: Antihypertensives held, patient with hypotensive shock on admission (3) Hyperlipidemia: Plan: Atorvastatin held on admission (4) Chronic kidney disease: Plan: Baseline creatinine less than 1.3, creatinine on admission 1.6. Patient with global hypoperfusion and shock on admission. BMP daily, patient is undergoing cardiac catheterization for? ACS. Follow for urine output and responsiveness to cath, diuresis, and pressor support. Nephrology consulted if patient is clinically deteriorating and unable to be diuresed/requires temporary dialysis. Potassium 4.9 on admission, hhehd-ah-oahi repeat 3.2. No hyperkalemia is present (5) GERD (gastroesophageal reflux disease): Plan: IV PPI for gastric protection (6) Diabetes: Plan: - BSG 350 on admit exam. s/p 5u IV insulin. Repeat pending. ICU hypoglycemia protocol vs gtt History of type 2 diabetes on metformin and 50 units nightly of Lantus Patient recently was prescribed Trulicity but has not yet started this per family Plan DVT prophylaxis: Pending CTA for PE, anticoagulation versus heparin Diet: N.p.o. Disposition: ICU CODE STATUS: Full codeAt time of admission/progression to [facility]. Discussed with family History of Present Illness Primary Care Provider: Juma Palacios MD Chandrika is a 77yo female who presented to the ER with midsternal chest pain, cough, and congestion. On ER provider review patient was diaphoretic and acute distress. EKG showed ST depressions in the lateral leads with T wave inversions and a left bundle branch block. Heart alert was activated. No history is obtainable from the patient as she is intubated and taken emergently to the [facility]. Collateral is collected from ER provider and family. Per family patient was in her normal state of health with no infectious symptoms, fever, chills and no episodes of chest pain up until today. Reports she went to the [employer] yesterday and felt completely fine. Today around 12 PM she developed sudden onset substernal chest pain. Subsequently around 3 PM developed shortness of breath and difficulty breathing. On ER assessment patient was found to be severely ill-appearing and hypotensive. EKG showed wide QRS [address] depressions in the lateral leads and baseline EKG in 2008 with no evidence of left bundle branch block QRS 88 sinus at that time. Patient's lactate was 8.5, BSG 355. Leukocytosis of 20.83 without granulocyte expansion but with neutrophilic predominance and an LR of 8. Chest x-ray showed mixed interstitial ovular opacity suggestive of pulmonary edema versus multifocal pneumonia. Patient was seen as a heart alert by cardiology and taken emergently to the [facility]. Differential includes PE for which a CTA is pending, multif ocal pneumonia although had abrupt onset of symptoms and time course somewhat in discussing with this, and ACS. Allergies Allergy/AdvReac Type Severity Reaction Status Date / Time No Known Allergies Allergy Unknown NONE KNOWN Verified 04/15/22 09:04 Home Medications Medication Instructions Recorded Confirmed Type aspirin 81 mg chewable tablet 81 mg PO DAILY 03/11/22 10/12/23 History atorvastatin 20 mg tablet 20 mg PO DAILY 03/11/22 10/12/23 History lisinopril 20 1 tab PO DAILY 03/11/22 10/12/23 History mg-hydrochlorothiazide 12.5 mg tablet metformin 1,000 mg tablet 1,000 mg PO BID 03/11/22 10/12/23 History pantoprazole 40 mg tablet,delayed 40 mg PO DAILY 03/11/22 10/12/23 History release insulin glargine 100 unit/mL (3 50 unit subcut QPM 03/13/22 10/12/23 History mL) subcutaneous pen (Lantus Solostar U-100 Insulin) alendronate 70 mg tablet 70 mg PO WK 10/12/23 10/12/23 History dulaglutide 0.75 mg/0.5 mL 0.75 mg subcut WK 10/12/23 10/12/23 History subcutaneous pen injector (Trulicity) famotidine 20 mg tablet 20 mg PO BID 10/12/23 10/12/23 History liraglutide 0.6 mg/0.1 mL (18 mg/3 1.2 mg subcut DAILY 10/12/23 10/12/23 History mL) subcutaneous pen injector (Victoza 2-Sancho) Past Med/Surg History Medical History Stroke Family History Mother Stroke Diabetes Myocardial infarction Father Myocardial infarction Sister Diabetes Brother Diabetes Social History Smoking Status: Unknown if ever smoked Hx Alcohol Use: No Hx Substance Use: No Preferred Language: Amharic Communication Ability Comment: intubated sedated Applied Statistician Required: No Beliefs That Will Affect Care: None marital status: current occupational status: retired current occupation: former cook at [employer] How many Children do You have: 4 Physical Exam Physical Exam: General: Critically ill-appearing, ETT in place, sedated HEENT: Atraumatic, normocephalic. Pulm: Coarse, bibasilar rales. Symmetrical chest rise. No increased work of breathing. No respiratory distress. Cardiac: Tachycardic, regular. No murmur appreciated. JVD is present Abdominal:nondistended, soft. BS present. Extremities: Warm, dry. exam abbreviated as patient progressed emergently to [facility] Results & Data Results & Data Vital Signs (Past 12 Hours) Vital Signs Temp Pulse Resp BP Pulse Ox O2 Del Method O2 Flow Rate 10/12/23 18:15 37.0 C 155 H 20 95 10/12/23 18:10 94/64 L 10/12/23 18:10 36.9 C 163 H 20 100 10/12/23 18:05 36.9 C 127 H 20 100 10/12/23 18:00 127/83 10/12/23 18:00 36.7 C 136 H 20 100 10/12/23 17:55 36.5 C 140 H 20 97 10/12/23 17:50 36.1 C L 144 H 20 97 10/12/23 17:50 93/74 L 10/12/23 17:45 35.0 C L 147 H 20 99 10/12/23 17:45 102/70 10/12/23 17:40 95/54 L 10/12/23 17:40 137 H 20 91 10/12/23 17:39 130 H 21 10/12/23 17:39 100/74 10/12/23 17:39 100/74 10/12/23 17:36 57 L 10/12/23 17:35 109 H 20 10/12/23 17:34 77/59 L 10/12/23 17:34 61 12 10/12/23 17:30 120 H 26 H 10/12/23 17:25 124 H 35 H 10/12/23 17:22 98/71 L 10/12/23 17:22 98/71 L 10/12/23 17:22 133 H 33 H 10/12/23 17:20 138 H 28 H 10/12/23 17:19 140 H 26 H 10/12/23 17:18 143 H 10/12/23 17:15 140 H 22 10/12/23 17:14 142 H 22 10/12/23 16:38 86 L 0 10/12/23 16:32 36.8 C 117 H 18 127/85 86 L Room Air PG Care Time/CCT Total # of Minutes Spent Total Time Spent with Patient: Total time spent is greater than 50% in coordination of care (as documented) at patient's floor/unit and/or counseling patient: Coding Level of Care Code 40765 INT INP/OBS CARE 3/75MIN Diagnoses Cardiogenic shock R57.0 Hypertension I10 Hyperlipidemia E78.5 Chronic kidney disease N18.9 GERD (gastroesophageal reflux disease) K21.9 Diabetes E11.9
[2023-10-12 18:45] LABS: Phosphorus 3.9 mg/dl (2.5-4.9)
[2023-10-12 18:55] LABS: Estimated Average Glucose 137 mg/dl; Hemoglobin A1C 6.4 % (4.5-5.6)
[2023-10-12] MEDS: MIDAZOLAM HCL 1 MG/ML 2ML VIAL ONE (18:58)
[2023-10-12] MEDS: HEPARIN (PORCINE) 1000 UNIT/ML 10 ML (CATH LAB USE ONLY) ONE (18:58)
[2023-10-12] MEDS: niCARdipine HCL INJ 2.5 MG/ML 10 ML AMP ONE (18:59)
[2023-10-12] MEDS: NITROGLYCERIN/D5W 100MCG/ML 20ML SYR ONE (18:59)
[2023-10-12] MEDS: PHENYLEPHRINE 100MCG/ML 5ML SYR ONE (18:59)
[2023-10-12] MEDS ORDERED: ROCURONIUM BROMIDE 10 MG/ML 5 ML VIAL IV ONE (19:02)
[2023-10-12] MEDS ORDERED: KETAMINE HCL INJ 50 MG/ML 10 ML VIAL IV ONE (19:02)
[2023-10-12] MEDS: fentaNYL citrate PF 100 MCG/2 ML VIAL ONE (19:05)
[2023-10-12] MEDS ORDERED: ATROPINE SULFATE 0.1 MG/ML 10ML SYR IV PRN (19:22)
--- NOTE | 2023-10-12 19:26 | Pre Anesthesia Assessment ---
Date of Service October 12, 2023 Pre Sedation Assessment Vital Signs Temp Pulse Resp BP Pulse Ox O2 Del Method O2 Flow Rate 10/12/23 18:15 37.0 C 155 H 20 95 10/12/23 18:10 94/64 L 10/12/23 18:10 36.9 C 163 H 20 100 10/12/23 18:05 36.9 C 127 H 20 100 10/12/23 18:00 127/83 10/12/23 18:00 36.7 C 136 H 20 100 10/12/23 17:55 36.5 C 140 H 20 97 10/12/23 17:50 36.1 C L 144 H 20 97 10/12/23 17:50 93/74 L 10/12/23 17:45 35.0 C L 147 H 20 99 10/12/23 17:45 102/70 10/12/23 17:40 95/54 L 10/12/23 17:40 137 H 20 91 10/12/23 17:39 130 H 21 10/12/23 17:39 100/74 10/12/23 17:39 100/74 10/12/23 17:36 57 L 10/12/23 17:35 109 H 20 10/12/23 17:34 77/59 L 10/12/23 17:34 61 12 10/12/23 17:30 120 H 26 H 10/12/23 17:25 124 H 35 H 10/12/23 17:22 98/71 L 10/12/23 17:22 98/71 L 10/12/23 17:22 133 H 33 H 10/12/23 17:20 138 H 28 H 10/12/23 17:19 140 H 26 H 10/12/23 17:18 143 H 10/12/23 17:15 140 H 22 10/12/23 17:14 142 H 22 10/12/23 16:38 86 L 0 10/12/23 16:32 36.8 C 117 H 18 127/85 86 L Room Air Cardiovascular Additional Comments: TACHYCARDIA Respiratory Additional Comments: INTUBATED AND SEDATED Pre-Sedation Airway Assessment Smoking Status: Never smoker UNABLE TO ASSESS POST INTUBATION ASA 4 Notes The planned sedation has been discussed with the patient. Informed Consent was obtained. I have identified the patient, determined the appropriateness of sedation and have assessed the patient immediately prior to the procedure. All medicine(s) and interventions are by my order.
--- NOTE | 2023-10-12 19:29 | Post Anesthesia Assessment ---
Date of Service October 12, 2023 Post Sedation Assessment Vital Signs Temp Pulse Resp BP Pulse Ox O2 Del Method O2 Flow Rate 10/12/23 18:15 37.0 C 155 H 20 95 10/12/23 18:10 94/64 L 10/12/23 18:10 36.9 C 163 H 20 100 10/12/23 18:05 36.9 C 127 H 20 100 10/12/23 18:00 127/83 10/12/23 18:00 36.7 C 136 H 20 100 10/12/23 17:55 36.5 C 140 H 20 97 10/12/23 17:50 36.1 C L 144 H 20 97 10/12/23 17:50 93/74 L 10/12/23 17:45 35.0 C L 147 H 20 99 10/12/23 17:45 102/70 10/12/23 17:40 95/54 L 10/12/23 17:40 137 H 20 91 10/12/23 17:39 130 H 21 10/12/23 17:39 100/74 10/12/23 17:39 100/74 10/12/23 17:36 57 L 10/12/23 17:35 109 H 20 10/12/23 17:34 77/59 L 10/12/23 17:34 61 12 10/12/23 17:30 120 H 26 H 10/12/23 17:25 124 H 35 H 10/12/23 17:22 98/71 L 10/12/23 17:22 98/71 L 10/12/23 17:22 133 H 33 H 10/12/23 17:20 138 H 28 H 10/12/23 17:19 140 H 26 H 10/12/23 17:18 143 H 10/12/23 17:15 140 H 22 10/12/23 17:14 142 H 22 10/12/23 16:38 86 L 0 10/12/23 16:32 36.8 C 117 H 18 127/85 86 L Room Air Recovery Score Activity: Moves 0 extremities Respiration: Apneic/Obstructed Airway (INTUBATED) Circulation: +/-20% PreAnes Value Consciousness: Nonresponsive Oxygen Saturation: > 92% On Room Air (INTUBATED) Discharge Sedation Level of Care: Higher Level of Care Post Sedation Plan On clinical assessment, the patient appears to have tolerated the sedation without complications. Patient is recovering as anticipated. Patient will continue to be monitored by nursing and may be discharged when sedation discharge criteria are met per below protocol. Upon Completions of procedure up to 15 minutes continue every 5 minute vital signs and the P.A.R. score; then discharge to a Phase I or Fast Track to Phase II per the following guidelines: * Discharge Patient to appropriate Phase II area if PAR is 8 or greater or return to pre- procedure baseline. The post - procedure orders will be as directed. * If PAR score is less than 8 or not return to pre-procedure baseline then patient will follow Phase I monitoring till PAR is reached for Phase II. The Phase I may be done in procedure room or may call to secure a Phase I area. * If naloxone or flumazenil are used for reversal, hold in Phase I for continued monitoring from when last reversal dose was given for a minimum of 60 minutes or longer pending the nurse and/or physician discretion of patient condition before discharge to Phase II. Please call the Sedation Physician to re-evaluate and complete post-note for discharge to Phase II area. Do NOT discharge from procedure sedation or Phase 1 until post- sedation evaluation note is complete by procedure /sedation MD Sedation Discharge Instructions to be given to the patient at discharge to home. [facility] Procedure Codes (Charges) Indication for Procedure Indication for procedure: AMI Sedation/Anesthesia Procedure 1: Sedation/Anesthesia: 54428 Mod Sedation by the same physician;Init15 Min Child Age 5 & Up (START 183) Total Sedation Time (minutes): 25 Procedure 2: Sedation/Anesthesia: 40999 Mod Sedation by the same physician; Ea [id number] Minutes (ADDITIONAL 10 MIN) Total Sedation Time (minutes): 25
[2023-10-12] MEDS ORDERED: Patient's HEIGHT &/or WEIGHT Needed SCH (19:45)
--- NOTE | 2023-10-12 19:50 | Cardiac Catheterization ---
[facility] Data: [employer] [facility] Cardiac Status Clinical evaluation leading to the procedure CAD Presenation: STEMI (Left bundle branch block, unknown onset) Anginal Classification: CCS IV Heart Failure: NYHA Class: CCS IV Cardiogenic Shock within 24 Hours: No Cardiac Arrest within 24 Hours: No Imaging Studies Past 6 Months: No Stress Studies Past 6 Months: No Coronary Anatomy Dominant: Right Left Main (% Stenosis): Distal (50%) LAD (% Stenosis): Ostial (90%), Proximal (Diffuse 50 to 70% calcified) and Mid (99 to 100%) D1 (% Stenosis): Proximal (80%) Circumflex (% Stenosis): Proximal (Diffuse 50%) and Mid (95 to 99%) OM1 (% Stenosis): Ostial (100%) L PL1 (% Stenosis): Normal (Less than 30%) RCA (% Stenosis): Proximal (Diffuse mild) and Mid (100%) Diagnostic Physicians Name: Yg Plascencia MD, PhD Closure Device Percutaneous Entry Location: Femoral Closure Device: Angio-Seal Recommendations: Medical Therapy and/or Counseling and CABG Cardiac Cath Procedure Full Procedure Date October 12, 2023 Pre-Procedure Diagnosis Pre-Procedure Diagnosis: STEMI AUC Score AUC Score: 09 Post-Procedure Diagnosis Post-Procedure Diagnosis: Severe CAD (Left bundle branch block) Procedure(s) Performed Procedure(s) Performed: Coronary Angiography and Ultrasound Guided Vascular Access Gasket Former Yg Plascencia MD, PhD Estimated Blood Loss Estimated Blood Loss: 5 mL Medication(s) Medication(s): Epinephrine, Fentanyl, Lidocaine 1%, Nick-Synephrine and Versed Summary of Findings Brief description: Patient was brought from the emergency department already intubated and on a fentanyl and Versed drip. Additionally she was on an epinephrine drip. This was reduced because of tachycardia and we added bolus doses of phenylephrine. These were continued for the procedure. Soft tissues of the right groin were anesthetized using 10 mL of 1% Xylocaine. Using ultrasound for guidance (image saved), the right femoral artery was accessed and a 6 Maltese femoral artery sheath was placed. All catheters were advanced and exchanged over a 0.035 J-tip wire. Left coronary angiography in orthogonal views with a 5 Maltese JL 4 diagnostic catheter. Right coronary angiography in orthogonal views with a 5 Maltese 3 DRC diagnostic catheter. Diagnostic catheters were removed. Limited right femoral artery angiography was performed to evaluate for closure. Findings were favorable, therefore, the femoral artery sheath was exchanged for a 6 Maltese Angio-Seal closure device. This was deployed in the recommended fas hion. We obtained immediate hemostasis and the patient remained hemodynamically stable. She was then transported to the ICU for further workup and management. This ended the case. Coronary angiography findings: LMT-this is large caliber and bifurcates into LAD and circumflex. It has diffuse mild calcification with distal disease approaching 50% at the bifurcation. LAD-this is initially large caliber. There is an ostial 90% stenosis and the proximal vessel has severe calcification and diffuse disease of 50 to 70% narrowing. It appears to provide a large septal trunk from which the septal branches arise. It appears that the mid LAD is 99 to 100% occluded. Fills very slowly on left coronary injection. The vessel apically, distally, and late mid actually fill better via right to left collateralization. The LAD provides a large multi branching first diagonal which has proximal 80% stenosis. The rest of that vessel has mild disease. LCx-medium to large and appears to be nondominant. The proximal and mid AV groove vessel have diffuse disease of 50% stenosis. There is a small OM that is 100% occluded. The late mid AV groove vessel before the posterolateral branch has a focal 95 to 99% stenosis. Posterolateral branch is relatively large with mild less than 30% stenosis. It provides to significant branches. RCA-this is medium to large in caliber. Proximal segment with diffuse mild disease and then the mid segment appears to be 100% occluded. There is collaterals right to left predominantly arising from the marginal branches. The PDA and PLB fill late via left to right collateralization and appears small in caliber. Summary: 1. Severe multivessel coronary artery disease. No acute thrombotic lesions consistent with acute ST elevation NC. 2. Optimal revascularization would be by coronary artery bypass grafting. However, incomplete revascularization could be considered if not a surgical candidate using PCI and intracoronary lithotripsy +/- atherectomy. 3. Recommend continue workup and treatment for sepsis/pneumonia. If the patient adequately recovers then referral to tertiary center for revascularization. 4. Obtain echocardiogram 5. Initiate guideline directed medical therapy for secondary prevention of coronary artery disease. Begin aspirin 81 mg daily and atorvastatin should be increased to 40 mg daily. Once she is hemodynamically stable can add beta- maria victoria. Monitor renal function and if blood pressure and renal function are favorable then could also add an angiotensin receptor maria victoria/JEISON inhibitor/Entresto (if EF reduced). Hemodynamics Rest Ao:: 121/70 mmHg Final Ao: 134/64 mmHg LV: Not performed Recommendations Recommendations: Medical Therapy and/or Counseling and CABG Radiation Exposure (mGy) 894 mGy, fluoroscopy time 3.6 minutes Contrast (mls) 65 mL Anesthesia Versed and fentanyl. Start 1830, and 1855 Procedural Complication(s) None Disposition ICU I attest to the content of the Intraoperative Record and any orders documented therein. Any exceptions are noted below. [facility] [place] Card Cath Procedure Codes Cardiac Catheterization Procedure 1: Cardiovascular Cath Procedures: 67080 Coronaries Therapeutic Services & Ancillary Procedure 1: Cardiovascular Tx and Anc Procedures: 02610 Ultrasonic Guidance Vascular Access Moderate Sedation Procedure 1: Sedation/Anesthesia: 66617 Mod Sedation by the same physician;Init15 Min Child Age 5 & Up (Initial 15 min, start time 183) Procedure 2: Sedation/Anesthesia: 39068 Mod Sedation by the same physician; Ea [id number] Minutes (Additional 10 min, end time 1855) PG Care Time/CCT Total # of Minutes Spent Total Time Spent with Patient: Total time spent is greater than 50% in coordination of care (as documented) at patient's floor/unit and/or counseling patient:
[2023-10-12 19:59] LABS: iSTAT Art Bld Gas pCO2 Correct 55 mmHg (35-46); iSTAT Art Bld Gas pH Corrected 7.272 (7.35-7.45); iSTAT Arterial Blood Gas HCO3 25 meg/L (19-24); iSTAT Arterial Blood Gas pCO2 55 mmHg (35-46); iSTAT Arterial Blood Gas pH 7.27 (7.35-7.45); iSTAT Arterial Blood Gas pO2 40 mmHg (80-95); iSTAT Arterial Blood Gas pO2 C 40; iSTAT Carbon Dioxide 27 mmol/L (24-31); iSTAT FiO2 100 %; iSTAT Hematocrit 41 % (37-47); iSTAT Hemoglobin 13.9 g/dl (12.0-16.0); iSTAT Potassium 4.1 mmol/L (3.3-5.0); iSTAT Site Art Line; iSTAT Sodium 140 mmol/L (135-144)
--- NOTE | 2023-10-12 20:05 | Critical Care Consultation ---
Date of Consultation October 12, 2023 Assessment & Plan (1) Chronic kidney disease: (2) Hypertension: (3) Hyperlipidemia: (4) GERD (gastroesophageal reflux disease): (5) Diabetes: (6) Hypertension: (7) Diabetes mellitus: (8) Obesity: (9) Cardiogenic shock: (10) Shock: (11) Hypoxic respiratory failure: Plan Reason Critically Ill: 77 YOF presents with acute onset dyspnea and chest pain with rapidly progressing bilateral pulmonary opacities requiring emergent intub ation, mechanical ventilation, and underwent emergent cardiac catherization without culprit lesion identified. To the ICU on Vasopressors, intubated and sedated. Neuro - Sedation for mechanical ventialtion CAM ICU: [facility] goal -1- sedate with propofol and fentanyl- discontinue midazolam infusion - Likely be able to wake up in morning pending clinical course overnight and trial SBT - No acute neurological findings on head CT and no neurological deficits prior to intubation Cardiac - Shock unspecified, CAD, elevated HsCTNI, LBB new - Patient with shock unspecified at this time but differential includes cardiogenic vs. distributive secondary to sepsis - She is with acute onset dyspnea and progressive worsening bilateral patchy opacities on CXR- CT scan post appears more consistent with a pneumonia vs. pulmonary edema - Continue vasopressor support- wean epinepherine and attempt to change to Levophed or Neosynephrine- she is currently with tachycardia and adequate MAP on epinephrine and tolerating weaning with decrease in HR - CAD- recommeded referral for CABG evalaution when stablized- goal directed therapy initiate once hemodyanically stable - Continue to trend HsCTNI until PEAK and follow ECGs- at this time likely demand typ II in the setting of no acute thrombus seen on cath - ECHO in morning - ScVO2-66- if pure cardiogenic would expect this to be lower than 60% Respiratory - abnormal CT scan, bilateral pacthy opacities, bilateral small/mod pleural effusions - The acuteness of the event is concerning leaving differential broad- DDX: SCAPE vs. Cardiogenic shock vs. viral/bacterial pneumonia vs. DAH - She was without acute elevation or stress to imitate an adrenergic SCAPE like response- so doubtful and CT scan is not consistent with pulmonary edema picture - DAH unlikely as no hemoptysis on suctioning or upon intubation - Cardiogenic shock is possibility- Eval with ECHO in am- however making this less of a component is not acute ischemia, BNP marginal at 300, and would expect ScVO2 to be less than 60 however not diagnostic - Will obtain sputum culture- perform bedside POCUS for pulmonary effusions as may benefit from diagnostic if this is pneumonic - Send respiratory biofire - broad spectrum antibiotics- hold on atypical coverage at this time GI - No acute needs - OGT in place- continue to LIWS - initiate feedings if vasopressor requirements decrease as well as if remains intubated in morning RENAL/LYTES - NAOMI II on CKD, AGAP metabolic acidosis, lactic acidosis - Continue with supportive care and vasopressors to maintain map >65- as above attempt to wean inotrope and replace with vasopressor - AGAP metabolic acidosis secondary to shock and lactic acidosis - GAP decreasing as lactate downtrends - Lactate downtrending, making adequate urine, MAPS currently adequate - renally dose medications as applicable- appreciate pharmacy assistance - No acute needs - Belle to gravity ENDO - DMII, Hyperglycemia - Start insulin infusion - adult ICU high stress - She is with normal HCO3 and GAP related to lactate and is minimal at this time HEME - No acute needs ID - Severe sepsis remians as possiblity and can't rule out at this time - Blood, sputum cultures pending - Urine is negative - Continue Cefepime and Vancomycin - de-escalate as able- will hold on atypical coverage at this time - Consider bronchoscopy in morning- or earlier if clinical picture changes LINES/IV ACCESS - PIV, CVL, [place], ETT, OGT, Belle Continue use of these lines DVT PROPHYLAXIS - SCDS, Heparin 5000 units subq TID DISPO: ICU while intubated/sedated and on vasopressor agents I have personally spent 70 minutes of critical care time in the direct management of this patient. This is a life/limb threatening event. This includes time spent evaluating patient, direct bedside care, chart review, placing orders, interpretation of diagnostic studies, discussion with consultants, patient, and family members, as well as other required patient management activities. This time is exclusive of all separately billable procedures,and separate from and in addition to any other critical care service time. Thank you for allowing us to participate in the care of this patient. Please refer to my attending physician's documentation for any further recommendations. History of Present Illness Reason for Consultation: Shock unspecified requiring emergent intubation and mechanical ventilation Requesting Physician: Emile Felix MD Attending Physician: Emile Felix MD History of Present Illness Information in this HPI is from chart review and discussion with admitting team and EMD provider as patient is intubated upon arrival. 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 Patient was brought to the EMD today for acute onset of chest pain that occurred around noon. Per report the pain was substernal and associated with difficulty breathing. She presented to the EMD and got progressively hypotensive and acute declination in mentation and respiratory efforts occurred. She was intubated emergently and heart alert was activated. Her chest Xray was notable for bilateral pacthy opacities that had progressed prior to being intubated from arrival CXR. Routine labs was notable for elevated WBC, Lactate 8.5, HsCTNI 895, and elevated Glucose >300 with gap 15 and normal HCO3. The patient was taken to the labourers and underwent coronary angiogram, that was noted with multivessel CAD that was not found to be acutely occluded or culprit. She was recommended for CABG once stabilized. She came to the ICU on epinephrine infusion at 0.2mcg/kg/min, sedated with Versed and Fentanyl, remained intubated and sedated. She had CVL line placed as well as Arterial L ine placed. ScVO2 was obtained from distal port on central line with sat of 66%. Labs were repeated with decreasing lactate to 4.2, gap has closed to 11, and improvment in her renal function noted. She was then taken to CT scan to obtain CTA of the chest as well as IV contrasted CT abdomen/pelvis, non con of head. No Pulmonary embolism was noted or active hemorrhage in the chest. She remains with bilateral effusions as well as bilateral patchy opacifications. She will be initiated on abx continue with vasopressor support and differentiate between cardiogenic shock or sepsis source as pulmonary is a possibility as well. CODE: FULL Allergies Allergy/AdvReac Type Severity Reaction Status Date / Time No Known Allergies Allergy Unknown NONE KNOWN Verified 04/15/22 09:04 Home Medications Medication Instructions Recorded Confirmed Type aspirin 81 mg chewable tablet 81 mg PO DAILY 03/11/22 10/12/23 History atorvastatin 20 mg tablet 20 mg PO DAILY 03/11/22 10/12/23 History lisinopril 20 1 tab PO DAILY 03/11/22 10/12/23 History mg-hydrochlorothiazide 12.5 mg tablet metformin 1,000 mg tablet 1,000 mg PO BID 03/11/22 10/12/23 History pantoprazole 40 mg tablet,delayed 40 mg PO DAILY 03/11/22 10/12/23 History release insulin glargine 100 unit/mL (3 50 unit subcut QPM 03/13/22 10/12/23 History mL) subcutaneous pen (Lantus Solostar U-100 Insulin) alendronate 70 mg tablet 70 mg PO WK 10/12/23 10/12/23 History dulaglutide 0.75 mg/0.5 mL 0.75 mg subcut WK 10/12/23 10/12/23 History subcutaneous pen injector (Trulicity) famotidine 20 mg tablet 20 mg PO BID 10/12/23 10/12/23 History liraglutide 0.6 mg/0.1 mL (18 mg/3 1.2 mg subcut DAILY 10/12/23 10/12/23 History mL) subcutaneous pen injector (Victoza 2-Sancho) Patient History Medical History Stroke Family History Mother Stroke Diabetes Myocardial infarction Father Myocardial infarction Sister Diabetes Brother Diabetes Social History Smoking Status: Unknown if ever smoked Hx Alcohol Use: No Hx Substance Use: No Preferred Language: Danish Communication Ability Comment: intubated sedated Barrel Polisher Required: No Beliefs That Will Affect Care: None marital status: current occupational status: retired current occupation: former cook at local [employer] How many Children do You have: 4 Review of Systems Review of Systems: unable to obtain secondary to patient being intubated and sedated Physical Exam Physical Exam: PHYSICAL EXAM: General: intubated and sedated Head: Normocephalic, atraumatic ENT: PERRLA, EOMI, no pharyngeal exudate, mucous membranes moist Neuro: Intubated and sedated- PEERLA bilaterally, moving bilateral arms on arrival, Chest: equal rise and fall of the chest, no accessory muscle use, scattered rhonchi throughout bilaterally Cardiac: Regular rate and rhythm, telemetry reviewed- NSR with ST depressions, skin cool and dry, cap refill >3 seconds, peripheral pusles +2 no JVD,no murmur, no edema GI: NABS x 4 quadrants, soft, nontender to palpation, no rebound, guarding or tenderness : Belle to gravity draining yellow urine Extremities: Normal inspection, no peripheral edema or erythema, calfs nontender to palpation Skin: no rash or erythema Results & Data Results & Data Vital Signs (Past 12 Hours) Vital Signs Temp Pulse Resp BP Pulse Ox O2 Del Method O2 Flow Rate 10/12/23 18:15 37.0 C 155 H 20 95 10/12/23 18:10 94/64 L 10/12/23 18:10 36.9 C 163 H 20 100 10/12/23 18:05 20 96 10/12/23 18:05 36.9 C 127 H 20 100 10/12/23 18:00 127/83 10/12/23 18:00 36.7 C 136 H 20 100 10/12/23 17:55 36.5 C 140 H 20 97 10/12/23 17:50 36.1 C L 144 H 20 97 10/12/23 17:50 93/74 L 10/12/23 17:45 35.0 C L 147 H 20 99 10/12/23 17:45 102/70 10/12/23 17:40 95/54 L 10/12/23 17:40 137 H 20 91 10/12/23 17:39 130 H 21 10/12/23 17:39 100/74 10/12/23 17:39 100/74 10/12/23 17:36 57 L 10/12/23 17:35 109 H 20 10/12/23 17:34 77/59 L 10/12/23 17:34 61 12 10/12/23 17:30 120 H 26 H 10/12/23 17:25 124 H 35 H 10/12/23 17:22 98/71 L 10/12/23 17:22 98/71 L 10/12/23 17:22 133 H 33 H 10/12/23 17:20 138 H 28 H 10/12/23 17:19 140 H 26 H 10/12/23 17:18 143 H 10/12/23 17:15 140 H 22 10/12/23 17:14 142 H 22 10/12/23 16:38 86 L 0 10/12/23 16:32 36.8 C 117 H 18 127/85 86 L Room Air FiO2 10/12/23 18:15 10/12/23 18:10 10/12/23 18:10 10/12/23 18:05 80 10/12/23 18:05 10/12/23 18:00 10/12/23 18:00 10/12/23 17:55 10/12/23 17:50 10/12/23 17:50 10/12/23 17:45 10/12/23 17:45 10/12/23 17:40 10/12/23 17:40 10/12/23 17:39 10/12/23 17:39 10/12/23 17:39 10/12/23 17:36 10/12/23 17:35 10/12/23 17:34 10/12/23 17:34 10/12/23 17:30 10/12/23 17:25 10/12/23 17:22 10/12/23 17:22 10/12/23 17:22 10/12/23 17:20 10/12/23 17:19 10/12/23 17:18 10/12/23 17:15 10/12/23 17:14 10/12/23 16:38 10/12/23 16:32 Laboratory Results Abnormal lab results 10/12/23 10/12/23 10/12/23 Range/Units 17:25 17:29 17:49 WBC 20.83 H (4.8-10.8) K/ul RBC 5.74 H (4.20-5.40) M/uL POC Hgb 17.7 H (12.0-16.0) g/dl Hct 49.5 H (37.0-47.0) % POC Hct 52 H (37-47) % MCHC 31.3 L (32.0-36.0) g/dL RDW Coeff of Genie 14.7 H (11.5-14.5) % Neutrophils # (Manual) 14.16 H (1.40-6.50) K/uL Total Absolute Neuts 14.16 H (1.4-6.5) K/uL Total Abs Lymphocytes 6.25 H (1.2-3.4) K/uL POC pH (7.35-7.45) POC pCO2 (35-46) mmHg POC pO2 (80-95) mmHg POC HCO3 (19-24) keyshawn/L ABG pH (Temp Correct) (7.35-7.45) ABG pCO2 (Temp Corrct (35-46) mmHg POC ABG O2 Sat (90-95) % VBG pH 7.13 L (7.36-7.41) VBG pCO2 64 H (38-50) mmHg POC Potassium 5.1 H (3.3-5.0) mmol/L POC Total CO2 22 L (24-31) mmol/L Anion Gap 14 H (3-11) POC Anion Gap 15.0 L (16-25) mmol/L POC BUN 43 H (7-18) mg/dl BUN 37 H (6-23) mg/dl Creatinine 1.60 H (0.6-1.2) mg/dl POC Creatinine 1.5 H (0.6-1.3) mg/dl BUN/Creatinine Ratio 23.1 H (10-20) Glucose 351 H* (70-99(Fasting)) mg/dl POC Glucose (70-99) mg/dl POC Glucose (other) 355 H* (70-99) mg/dl Hemoglobin A1c 6.4 H (4.5-5.6) % Lactate 8.5 H* (0.4-2.0) mmol/L POC Ioniz Calcium Dena 1.09 L (1.12-1.32) mmol/l Troponin I High Sens 895.8 H* (0-14) pg/ml B-Natriuretic Peptide (0-100) pg/ml Urine Glucose (UA) (Negative) 10/12/23 10/12/23 10/12/23 Range/Units 17:55 18:00 18:12 WBC (4.8-10.8) K/ul RBC (4.20-5.40) M/uL POC Hgb (12.0-16.0) g/dl Hct (37.0-47.0) % POC Hct (37-47) % MCHC (32.0-36.0) g/dL RDW Coeff of Genie (11.5-14.5) % Neutrophils # (Manual) (1.40-6.50) K/uL Total Absolute Neuts (1.4-6.5) K/uL Total Abs Lymphocytes (1.2-3.4) K/uL POC pH 7.28 L (7.35-7.45) POC pCO2 (35-46) mmHg POC pO2 125 H (80-95) mmHg POC HCO3 (19-24) keyshawn/L ABG pH (Temp Correct) (7.35-7.45) ABG pCO2 (Temp Corrct (35-46) mmHg POC ABG O2 Sat 98.0 H (90-95) % VBG pH (7.36-7.41) VBG pCO2 (38-50) mmHg POC Potassium 3.2 L (3.3-5.0) mmol/L POC Total CO2 21 L (24-31) mmol/L Anion Gap (3-11) POC Anion Gap (16-25) mmol/L POC BUN (7-18) mg/dl BUN (6-23) mg/dl Creatinine (0.6-1.2) mg/dl POC Creatinine (0.6-1.3) mg/dl BUN/Creatinine Ratio (10-20) Glucose (70-99(Fasting)) mg/dl POC Glucose 432 H* (70-99) mg/dl POC Glucose (other) (70-99) mg/dl Hemoglobin A1c (4.5-5.6) % Lactate (0.4-2.0) mmol/L POC Ioniz Calcium Dena (1.12-1.32) mmol/l Troponin I High Sens (0-14) pg/ml B-Natriuretic Peptide (0-100) pg/ml Urine Glucose (UA) Trace H (Negative) 10/12/23 10/12/23 10/12/23 Range/Units 19:46 19:49 19:50 WBC (4.8-10.8) K/ul RBC (4.20-5.40) M/uL POC Hgb (12.0-16.0) g/dl Hct (37.0-47.0) % POC Hct (37-47) % MCHC (32.0-36.0) g/dL RDW Coeff of Genie (11.5-14.5) % Neutrophils # (Manual) (1.40-6.50) K/uL Total Absolute Neuts (1.4-6.5) K/uL Total Abs Lymphocytes (1.2-3.4) K/uL POC pH 7.27 L (7.35-7.45) POC pCO2 55 H (35-46) mmHg POC pO2 40 L (80-95) mmHg POC HCO3 25 H (19-24) keyshawn/L ABG pH (Temp Correct) 7.272 L (7.35-7.45) ABG pCO2 (Temp Corrct 55 H (35-46) mmHg POC ABG O2 Sat 66.0 L (90-95) % VBG pH (7.36-7.41) VBG pCO2 (38-50) mmHg POC Potassium (3.3-5.0) mmol/L POC Total CO2 (24-31) mmol/L Anion Gap (3-11) POC Anion Gap (16-25) mmol/L POC BUN (7-18) mg/dl BUN 39 H (6-23) mg/dl Creatinine 1.51 H (0.6-1.2) mg/dl POC Creatinine (0.6-1.3) mg/dl BUN/Creatinine Ratio 25.8 H (10-20) Glucose 349 H* (70-99(Fasting)) mg/dl POC Glucose (70-99) mg/dl POC Glucose (other) (70-99) mg/dl Hemoglobin A1c (4.5-5.6) % Lactate 4.2 H* (0.4-2.0) mmol/L POC Ioniz Calcium Dena (1.12-1.32) mmol/l Troponin I High Sens 4646.0 H* D (0-14) pg/ml B-Natriuretic Peptide 333 H (0-100) pg/ml Urine Glucose (UA) (Negative) 10/12/23 Range/Units 20:48 WBC (4.8-10.8) K/ul RBC (4.20-5.40) M/uL POC Hgb (12.0-16.0) g/dl Hct (37.0-47.0) % POC Hct (37-47) % MCHC (32.0-36.0) g/dL RDW Coeff of Genie (11.5-14.5) % Neutrophils # (Manual) (1.40-6.50) K/uL Total Absolute Neuts (1.4-6.5) K/uL Total Abs Lymphocytes (1.2-3.4) K/uL POC pH (7.35-7.45) POC pCO2 (35-46) mmHg POC pO2 (80-95) mmHg POC HCO3 (19-24) keyshawn/L ABG pH (Temp Correct) (7.35-7.45) ABG pCO2 (Temp Corrct (35-46) mmHg POC ABG O2 Sat (90-95) % VBG pH (7.36-7.41) VBG pCO2 (38-50) mmHg POC Potassium (3.3-5.0) mmol/L POC Total CO2 (24-31) mmol/L Anion Gap (3-11) POC Anion Gap (16-25) mmol/L POC BUN (7-18) mg/dl BUN (6-23) mg/dl Creatinine (0.6-1.2) mg/dl POC Creatinine (0.6-1.3) mg/dl BUN/Creatinine Ratio (10-20) Glucose (70-99(Fasting)) mg/dl POC Glucose 354 H* (70-99) mg/dl POC Glucose (other) (70-99) mg/dl Hemoglobin A1c (4.5-5.6) % Lactate (0.4-2.0) mmol/L POC Ioniz Calcium Dena (1.12-1.32) mmol/l Troponin I High Sens (0-14) pg/ml B-Natriuretic Peptide (0-100) pg/ml Urine Glucose (UA) (Negative) Diagnostic Findings Chest X-Ray 10/12/23 16:41 XR chest 1V portable HISTORY: 77 years-old Female hypoxia acute hypoxia COMPARISON: 04/27/2009 TECHNIQUE: AP view of the chest FINDINGS: Cardiac silhouette is enlarged. Pulmonary vascular congestion. Bilateral mixed interstitial and alveolar opacities. No pneumothorax or large pleural effusion. Bones appear grossly intact. IMPRESSION: Mixed interstitial and alveolar opacities suggest pulmonary edema versus multifocal pneumonia. ACT 112: Negative or not required by law. The above report was generated using voice recognition software. It may contain grammatical, syntax or spelling errors. Electronically signed by: Wong Mcpherson M.D. 10/12/2023 5:13 PM Chest CTA 10/12/23 16:59 Exam(s): CTA CHEST IV Amt: 115 ml optiray 320 EXAM: CT Angiography Chest With Intravenous Contrast CLINICAL HISTORY: Reason for exam: PE/DAH. TECHNIQUE: Axial computed tomographic angiography images of the chest with intravenous contrast. CTDI is 94.01 mGy and DLP is 2237.92 mGy-cm. Automated exposure control was utilized for the study. A dose lowering technique was utilized adhering to the principles of ALARA. MIP reconstructed images were created and reviewed. COMPARISON: No relevant prior studies available. FINDINGS: Pulmonary arteries: Unremarkable. No acute pulmonary embolism. Aorta: No acute findings. No thoracic aortic aneurysm. Lungs: See below. Pleural space: Bilateral parapneumonic effusions. Heart: Unremarkable. No cardiomegaly. No significant pericardial effusion. No evidence of RV dysfunction. Bones/joints: See above. Soft tissues: Unremarkable. Lymph nodes: Unremarkable. No enlarged lymph nodes. Tubes, lines and devices: Feeding tube terminates in the stomach. Endotracheal tube terminates in the trachea. Dependent airspace consolidations, consistent with severe multilobar pneumonia. IMPRESSION: 1. No acute pulmonary embolism. 2. Bilateral parapneumonic effusions. 3. Feeding tube terminates in the stomach. 4. Endotracheal tube terminates in the trachea. Dependent airspace consolidations, consistent with severe multilobar pneumonia. Electronically signed by: Varinder Danielle MD 10/12/23 20:57 PM Abdomen/Pelvis CT 10/12/23 17:15 Exam(s): CT ABDOMEN + PELVIS With Contrast IV Amt: 115 ml optiray 320 EXAM: CT Abdomen and Pelvis With Intravenous Contrast CLINICAL HISTORY: Reason for exam: abd pain. TECHNIQUE: Axial computed tomography images of the abdomen and pelvis with intravenous contrast. CTDI is 94.01 mGy and DLP is 2237.92 mGy-cm. Automated exposure control was utilized for the study. A dose lowering technique was utilized adhering to the principles of ALARA. CONTRAST: Patient received 115 ml optiray 320 of IV contrast COMPARISON: No relevant prior studies available. FINDINGS: Lung bases: Dependent airspace consolidations, correlate for aspiration pneumonia. Small bilateral pleural effusions. ABDOMEN: Liver: Unremarkable. No mass. Gallbladder and bile ducts: Unremarkable. No calcified stones. No ductal dilation. Pancreas: Unremarkable. No mass. No ductal dilation. Spleen: Unremarkable. No splenomegaly. Adrenals: Unremarkable. No mass. Kidneys and ureters: Unremarkable. No solid mass. No hydronephrosis. Stomach and bowel: Diverticulosis, without acute diverticulitis. No small bowel obstruction. PELVIS: Appendix: No findings to suggest acute appendicitis. Bladder: Belle catheter terminates in the urinary bladder. Reproductive: Unremarkable as visualized. ABDOMEN and PELVIS: Intraperitoneal space: Unremarkable. No free air. No significant fluid collection. Bones/joints: No acute fracture. No dislocation. Soft tissues: Unremarkable. Vasculature: Unremarkable. No abdominal aortic aneurysm. Lymph nodes: Unremarkable. No enlarged lymph nodes. Tubes, lines and devices: Feeding tube terminates in the stomach. IMPRESSION: 1. Dependent airspace consolidations, correlate for aspiration pneumonia. Small bilateral pleural effusions. 2. Feeding tube terminates in the stomach. 3. Diverticulosis, without acute diverticulitis. No small bowel obstruction. Electronically signed by: Varinder Danielle MD 10/12/23 20:55 PM Chest X-Ray 10/12/23 17:42 XR chest 1V portable CLINICAL HISTORY: ETT COMPARISON STUDY: Chest radiograph performed earlier today. FINDINGS: The tip of the endotracheal tube is 3.7 cm above the shad. There is a trace left pleural effusion. There is no pneumothorax. Significant progression of interstitial and alveolar opacities is noted. Cardiomediastinal silhouette is stable. IMPRESSION: 1. Satisfactory positioning of the endotracheal tube. 2. Significant progression of interstitial and alveolar opacities. The findings favor alveolar and interstitial pulmonary edema. Multifocal pneumonia could appear similar. 3. Trace left pleural effusion. ACT 112: Negative or not required by law. Electronically signed by: Arthur Nash M.D. 10/12/2023 6:[address] 10/12/23 19:48 Exam(s): CT HEAD Without Contrast EXAM: CT Head Without Intravenous Contrast CLINICAL HISTORY: Reason for exam: obtunded, AMS. TECHNIQUE: Axial computed tomography images of the head/brain without intravenous contrast. CTDI is 62.99 mGy and DLP is 961.59 mGy-cm. Automated exposure control was utilized for the study. A dose lowering technique was utilized adhering to the principles of ALARA. COMPARISON: No relevant prior studies available. FINDINGS: No acute intracranial hemorrhage. No midline shift or mass effect. The territorial villarreal-white matter differentiation is maintained throughout. Age-related cerebral volume loss. Periventricular and subcortical white matter hypoattenuation, consistent with chronic microangiopathy. The visualized orbits appear grossly unremarkable. The calvarium is intact. The visualized paranasal sinuses and mastoid air cells are grossly clear. IMPRESSION: No acute intracranial hemorrhage, midline shift, or mass effect. Electronically signed by: Varinder Danielle MD 10/12/23 20:55 PM Coding Level of Care Code 02629 CRITICAL CARE 1ST 30-74M Diagnoses Chronic kidney disease N18.9 Hypertension I10 Hyperlipidemia E78.5 GERD (gastroesophageal reflux disease) K21.9 Diabetes E11.9 Obesity E66.9 Cardiogenic shock R57.0 Shock R57.9 Hypoxic respiratory failure J96.91
--- NOTE | 2023-10-12 20:05 | Procedure Note ---
Procedure Note Date of Service October 12, 2023 Note INTERNAL JUGULAR CENTRAL LINE PROCEDURE NOTE: Procedure: Internal Jugular Central Line Placement Proceduralist: Lee TORRES ([facility]) Attending: Dr. Benites Indication: Central Drug Administration, Poor Venous Access, Multiple Lab Draws Necessary, etc. Anesthesia: Propofol and Fentanyl Infusion Emergent Consent was implied as patient is full code, intubated requiring mechanical ventilation as well as escalating doses of vasopressor agents- benefits outweigh the risks A time-out was completed verifying correct patient, procedure, site, positioning, Patients RIGHT Neck was cleansed and draped in the typical sterile fashion using Chloraprep. The Internal Jugular Vein and Carotid Artery were scouted and identified using ultrasound. Using ultrasound direct visualization, the Internal Jugular vein was cannulated using an introducer needle on a syringe. Good venous blood return was maintained prior to removal of syringe from introducer needle. Using Seldinger Technique, a guide wire was advanced through the introducer needle without resistance. The introducer needle was removed and ultrasound images were obtained of the guide wire within the Internal Jugular Vein and saved to the patients medical record. A small incision was made in penetrating fashion at the guide wire insertion site utilizing an 11 blade scalpel. The dilator was advanced to the vessel without resistance. The dilator was exchanged for the triple lumen catheter which was advanced into the vessel without resistance. The guide wire was removed intact from the catheter without issue. Claves were placed on each catheter tip with confirmation of good blood flow from each lumen. Each port was easily flushed with sterile saline. The catheter was placed at 17 cm and sutured in place. BioPatch was applied to the catheter and a sterile Tegaderm dressing was applied over the catheter with careful attention to sterility. Patient tolerated procedure well. No immediate complications were met. Post procedure x-ray was completed, placement was appropriate and no pneumothorax was noted. Images obtained are NOT saved for permanent record as this was emergent/urgent Procedural Ultrasound Guidance: Artery AND Vein visualized: YES Compressible Vein: YES Guidewire or Short Catheter seen in vein prior to dilation: YES Images obtained are NOT saved for permanent record. Coding CPT Codes Tubes, Drains, and Vasc Access - Tubes, Drains, and Vasc Access: [id number] Insertion Of Non-tunneled Catheter Age 5 Yrs> ([id number]) [facility] [place]arges) Tubes, Drains, and Vasc Access Procedure 1: Tubes, Drains, and Vasc Access: [id number] Insertion Of Non-tunneled Catheter Age 5 Yrs>
--- NOTE | 2023-10-12 20:05 | Procedure Note ---
Procedure Note Date of Service October 12, 2023 Note ARTERIAL LINE PROCEDURE NOTE: Procedure: Arterial Line Placement Proceduralist: Lee TORRES ([facility]-) Attending: Dr. Benites Indication: Monitoring on Pressors Anesthesia: Fentanyl infusion and propofol infusion Emergent Consent was implied as patient is full code, requiring vasopressor agents with end organ dysfunction- benefits outweigh risks. A time-out was completed verifying correct patient, procedure, site, positioning, Allens test was performed to ensure adequate perfusion. Patients RIGHT wrist was prepped and draped in the usual sterile fashion. Ultrasound was used to net developer the vessel and then for direct visualization to aid needle placement. A 20g Arrow arterial line was introduced into the RIGHT RADIAL artery. Catheter was threaded, and the needle was removed with appropriate blood return. Pressure tubing was attached and good waveform was observed. The patient tolerated the procedure well without immediate complication noted. The line was sutured in place and covered with sterile dressing. Blood Loss: Minimal Complications: None Immediate Artery Identified: YES Complications: NONE Patient tolerated procedure: WELL Images NOT saved to permanent record secondary to emergent/urgent procedure Coding CPT Codes Tubes, Drains, and Vasc Access - Tubes, Drains, and Vasc Access: [id number] Arterial Cath/Cannulation Sampling/Monitoring/Transfusion ([id number]) [facility] [place] Codes (Charges) Tubes, Drains, and Vasc Access Procedure 1: Tubes, Drains, and Vasc Access: [id number] Arterial Cath/Cannulation Sampling/Monitoring/Transfusion
[2023-10-12] MEDS ORDERED: PROPOFOL BOLUS FROM BAG IV PRN (20:07)
[2023-10-12] MEDS ORDERED: CEFEPIME 2,000 MG in SYRINGE 0 ML IV SCH (20:15)
[2023-10-12 20:20] LABS: INR 0.9 (0.9-1.1); Partial Thromboplastin Ratio 0.9; Partial Thromboplastin Time 25 Seconds (21-31); Prothrombin Time 10.3 Seconds (9.0-12.0)
[2023-10-12 20:27] LABS: BUN Creatinine Ratio 25.8 (10-20); Calcium 8.6 mg/dl (8.6-10.3); Creatinine Clr Calc Pharmacy 26.5 ml/min; Est GFR (African American) 38.2 ml/min; Potassium 4.1 mmol/L (3.5-5.1)
[2023-10-12] MEDS: OPTIRAY 320 125ml IV ONE (20:32)
--- NOTE | 2023-10-12 20:56 | CT Scan Report ---
Exam(s): CT HEAD Without Contrast EXAM: CT Head Without Intravenous Contrast CLINICAL HISTORY: Reason for exam: obtunded, AMS. TECHNIQUE: Axial computed tomography images of the head/brain without intravenous contrast. CTDI is 62.99 mGy and DLP is 961.59 mGy-cm. Automated exposure control was utilized for the study. A dose lowering technique was utilized adhering to the principles of ALARA. COMPARISON: No relevant prior studies available. FINDINGS: No acute intracranial hemorrhage. No midline shift or mass effect. The territorial villarreal-white matter differentiation is maintained throughout. Age-related cerebral volume loss. Periventricular and subcortical white matter hypoattenuation, consistent with chronic microangiopathy. The visualized orbits appear grossly unremarkable. The calvarium is intact. The visualized paranasal sinuses and mastoid air cells are grossly clear. IMPRESSION: No acute intracranial hemorrhage, midline shift, or mass effect. Electronically signed by: Varinder Danielle MD 10/12/23 20:55 PM
--- NOTE | 2023-10-12 20:56 | CT Scan Report ---
Exam(s): CT ABDOMEN + PELVIS With Contrast IV Amt: 115 ml optiray 320 EXAM: CT Abdomen and Pelvis With Intravenous Contrast CLINICAL HISTORY: Reason for exam: abd pain. TECHNIQUE: Axial computed tomography images of the abdomen and pelvis with intravenous contrast. CTDI is 94.01 mGy and DLP is 2237.92 mGy-cm. Automated exposure control was utilized for the study. A dose lowering technique was utilized adhering to the principles of ALARA. CONTRAST: Patient received 115 ml optiray 320 of IV contrast COMPARISON: No relevant prior studies available. FINDINGS: Lung bases: Dependent airspace consolidations, correlate for aspiration pneumonia. Small bilateral pleural effusions. ABDOMEN: Liver: Unremarkable. No mass. Gallbladder and bile ducts: Unremarkable. No calcified stones. No ductal dilation. Pancreas: Unremarkable. No mass. No ductal dilation. Spleen: Unremarkable. No splenomegaly. Adrenals: Unremarkable. No mass. Kidneys and ureters: Unremarkable. No solid mass. No hydronephrosis. Stomach and bowel: Diverticulosis, without acute diverticulitis. No small bowel obstruction. PELVIS: Appendix: No findings to suggest acute appendicitis. Bladder: Belle catheter terminates in the urinary bladder. Reproductive: Unremarkable as visualized. ABDOMEN and PELVIS: Intraperitoneal space: Unremarkable. No free air. No significant fluid collection. Bones/joints: No acute fracture. No dislocation. Soft tissues: Unremarkable. Vasculature: Unremarkable. No abdominal aortic aneurysm. Lymph nodes: Unremarkable. No enlarged lymph nodes. Tubes, lines and devices: Feeding tube terminates in the stomach. IMPRESSION: 1. Dependent airspace consolidations, correlate for aspiration pneumonia. Small bilateral pleural effusions. 2. Feeding tube terminates in the stomach. 3. Diverticulosis, without acute diverticulitis. No small bowel obstruction. Electronically signed by: Varinder Danielle MD 10/12/23 20:55 PM
--- NOTE | 2023-10-12 20:58 | CT Scan Report ---
Exam(s): CTA CHEST IV Amt: 115 ml optiray 320 EXAM: CT Angiography Chest With Intravenous Contrast CLINICAL HISTORY: Reason for exam: PE/DAH. TECHNIQUE: Axial computed tomographic angiography images of the chest with intravenous contrast. CTDI is 94.01 mGy and DLP is 2237.92 mGy-cm. Automated exposure control was utilized for the study. A dose lowering technique was utilized adhering to the principles of ALARA. MIP reconstructed images were created and reviewed. COMPARISON: No relevant prior studies available. FINDINGS: Pulmonary arteries: Unremarkable. No acute pulmonary embolism. Aorta: No acute findings. No thoracic aortic aneurysm. Lungs: See below. Pleural space: Bilateral parapneumonic effusions. Heart: Unremarkable. No cardiomegaly. No significant pericardial effusion. No evidence of RV dysfunction. Bones/joints: See above. Soft tissues: Unremarkable. Lymph nodes: Unremarkable. No enlarged lymph nodes. Tubes, lines and devices: Feeding tube terminates in the stomach. Endotracheal tube terminates in the trachea. Dependent airspace consolidations, consistent with severe multilobar pneumonia. IMPRESSION: 1. No acute pulmonary embolism. 2. Bilateral parapneumonic effusions. 3. Feeding tube terminates in the stomach. 4. Endotracheal tube terminates in the trachea. Dependent airspace consolidations, consistent with severe multilobar pneumonia. Electronically signed by: Varinder Danielle MD 10/12/23 20:57 PM
[2023-10-12] MEDS ORDERED: Nursing to Pharmacy Communication SCH (21:00)
[2023-10-12] MEDS: CEFEPIME 2,000 MG/20 ML VIAL ONE (21:09)
[2023-10-12] MEDS: VANCOMYCIN HCL 1,500 MG in SODIUM CHLORIDE 0.9% 500 ML IV ONE (21:09)
[2023-10-12] MEDS: NOREPINEPHRINE/D5W 4 MG/250 ML PLCT IV SCH (21:12)
[2023-10-12] MEDS: INSULIN REGULAR 250 UNITS in SODIUM CHLORIDE 0.9% 247.5 ML IV SCH (21:14)
[2023-10-12] MEDS: cefTRIAXone SODIUM 2,000 MG/50 ML BAG IV STA (21:23)
[2023-10-12] MEDS: fentaNYL citrate PF 100 MCG/2 ML VIAL IV STA (21:23)
[2023-10-12] MEDS: EPINEPHrine/NSS 4 MG/254 ML BAG IV SCH (21:25)
[2023-10-12] MEDS: propofoL 1,000 MG/100 ML VIAL IV SCH (21:26)
[2023-10-12] MEDS: PROPOFOL IV EMULSION 10 MG/ML 100 ML VIAL IV ONE (21:26)
[2023-10-12] MEDS: NOREPINEPHRINE/D5W 4 MG/250 ML IV ONE (21:26)
[2023-10-12] MEDS: ICU Protocol for HYPERglycemia SCH (21:27)
[2023-10-12] MEDS: INSULIN ASPART PER UNIT CHARGE SC SCH (21:27)
[2023-10-12] MEDS: NovoLIN-R BOLUS FROM BAG IV ONE (21:43)
[2023-10-12] MEDS: STAT IV Infusion **Titration per Protocol STA (21:44)
[2023-10-12] MEDS: INSULIN PROTOCOL GOAL RANGE ONE (21:44)
[2023-10-12] MEDS: SEVERE STRESS LEVEL ONE (21:44)
--- NOTE | 2023-10-12 22:00 | Pharmacy Report ---
Pharmacy PK ABX Note - Date of Service October 12, 2023 - Assessment and Plan Assessment 77 year old F receiving IV Vancomycin for treatment of empiric. Day # 1 of antimicrobial therapy. Plan Vancomycin * Loading dose: 1500 mg IV x 1 * Unable to safely initiate maintenance dose at this time due to AGUSTIN; will dose prn levels * Random level ordered for: 10/13/23 with AM labs Pharmacy will continue to follow and will adjust dose/frequency as necessary. Thank you. Pharmacy has transitioned to AUC monitoring for vancomycin. AUC/MELANY is the preferred PK/PD target and is associated with decreased risk of nephrotoxicity compared to traditional trough targets.
[2023-10-12] MEDS ORDERED: VASOPRESSIN 20 UNITS in 0.9 % SODIUM CHLORIDE 100 ML IV SCH (22:15)
[2023-10-12] MEDS: HEPARIN SOD 5,000 UNIT/0.5 ML VIAL SQ SCH (22:36)
[2023-10-12 23:41] LABS: BUN Creatinine Ratio 26.8 (10-20); Calcium 8.3 mg/dl (8.6-10.3); Est GFR (African American) 42.6 ml/min; Est GFR (Non-African American) 36.8 ml/min; Phosphorus 2.7 mg/dl (2.5-4.9); Potassium 3.9 mmol/L (3.5-5.1)
[2023-10-13] MEDS ORDERED: INSULIN ASPART PER UNIT CHARGE SC SCH
[2023-10-13 01:16] LABS: Adenovirus PCR Not Detected (NotDetected); Bordetella parapertussis PCR Not Detected (NotDetected); Bordetella pertussis PCR Not Detected (NotDetected); Chlamydia pneumoniae PCR Not Detected (NotDetected); Coronavirus 229E PCR Not Detected (NotDetected); Coronavirus CoV-2 (COVID19)PCR Not Detected (NotDetected); Coronavirus HKU1 PCR Not Detected (NotDetected); Coronavirus NL63 PCR Not Detected (NotDetected); Coronavirus OC43PCR Not Detected (NotDetected); Human Metapneumovirus PCR Not Detected (NotDetected); Influenza A PCR Not Detected (NotDetected); Influenza B PCR Not Detected (NotDetected); Mycoplasma pneumoniae PCR Not Detected (NotDetected); Parainfluenza Virus 1 PCR Not Detected (NotDetected); Parainfluenza Virus 2 PCR Not Detected (NotDetected); Parainfluenza Virus 3 PCR Not Detected (NotDetected); Parainfluenza Virus 4 PCR Not Detected (NotDetected); Respiratory Syncytial VirusPCR Not Detected (NotDetected); Rhinovirus/Enterovirus PCR Not Detected (NotDetected)
[2023-10-13] MEDS: PLASMA-LYTE A 500 ML IV ONE (01:41)
[2023-10-13 02:50] LABS: Albumin Globulin Ratio 1.3 (0.9-2); Albumin Level 3.5 gm/dl (3.4-5.0); BUN Creatinine Ratio 25.4 (10-20); Bilirubin,Total 0.5 mg/dl (0.2-1.0); Calcium 8.7 mg/dl (8.6-10.3); Est GFR (African American) 42.6 ml/min; Est GFR (Non-African American) 36.8 ml/min; Globulin 2.7 gm/dl (2.5-4.0); Potassium 3.9 mmol/L (3.5-5.1); Total Protein 6.2 gm/dl (6.0-8.3)
[2023-10-13 02:54] LABS: Hematocrit (blood only) 38.4 % (37.0-47.0); Hemoglobin 12.8 g/dl (12.0-16.0); Mean Corpuscular Hemoglobin 26.9 pg (25.0-34.0); Mean Corpuscular Hgb Conc 33.3 g/dL (32.0-36.0); Mean Corpuscular Volume 80.8 fL (80.0-100.0); Mean Platelet Volume 11.3 fL (9.4-12.4); Platelet Count 281 K/uL (130-400); RDW Coefficient of Variation 14.5 % (11.5-14.5); RDW Standard Deviation 42.5 fL (36.4-46.3); Red Blood Count 4.75 M/uL (4.20-5.40); White Blood Count 23.14 K/ul (4.8-10.8)
[2023-10-13 02:56] LABS: Partial Thromboplastin Ratio 0.9; Partial Thromboplastin Time 25 Seconds (21-31); Prothrombin Time 10.9 Seconds (9.0-12.0)
--- OUTSIDE RECORDS SUMMARY | 2023-10-13 03:36 | External Medical Summary | Continuity of Care Document ---
Author Name Unknown Organization [address] [id number] Care Team Providers Care Draw Frame Operator Name Role Phone SuzanneYante joean Primary Care Physician [phone] Encounter [facility] [id number] Date(s): 08/03/23 - 08/03/[address] [address] [phone] Encounter Diagnosis DIABETES MELLITUS(Discharge Diagnosis) - 08/03/23 HYPERTENSION(Discharge Diagnosis) - 08/03/23 Hyperlipemia(Discharge Diagnosis) - 08/03/23 Renal insufficiency(Discharge Diagnosis) - 08/03/23 Osteoporosis(Discharge Diagnosis) - 08/03/23 GERD(Discharge Diagnosis) - 08/03/23 Type 2 diabetes mellitus without complications(Final) - Discharge Disposition: Home or Self Care Attending Physician: BRIAN Raphael Tara Referring Physician: BRIAN Raphael Tara Allergies, Adverse Reactions, Alerts No Known Allergies Assessment and Plan Extracted from: Title:follow up Author:BRIAN Raphael Tara Date: 1.DIABETES MELLITUS Acute/Chronic: chronic Goal:Resolution/ control Status:stable/controlled Data: records/pt report Plan:Will draw hgba1c today as it was not done with her other labs. Her bsg that she showed me were good (80-110 in am).Will order new glucometer for her. 2.HYPERTENSION Acute/Chronic: chronic Goal:Resolution/ control Status:stable/controlled Data: records/pt report Plan:BP well controlled. 3.Hyperlipemia Acute/Chronic: chronic Goal:Resolution/ control Status:stable/controlled Data: records/pt report Plan:Contd on statin. Will check lipidsin 3 to 4 mo. 4.Renal insufficiency Acute/Chronic: chronic Goal:Resolution/ control Status:stable/controlled Data: records/pt report Plan:Creat and EGFR is stable. 5.Osteoporosis Acute/Chronic: chronic Goal:Resolution/ control Status:stable/controlled Data: records/pt report Plan: Contd on fosamax. 6.GERD Acute/Chronic: chronic Goal:Resolution/ control Status:stable/controlled Data: records/pt report Plan: She is already on pantoprazole 40mg po daily. Will add famotadine. She is on asa due to previous hx of stroke. Follow up in one month. time spent reviewing chart, face to face visit, ordersand documentation: 45 min Immunizations Given and Recorded Vaccine Date Status Refusal Reason SARS-CoV-2 (COVID-19) mRNA-vacc - [id number] 07/09/23 Recorded influenza virus vaccine, inactivated 06/25/23 Jose rded influenza virus vaccine, inactivated 06/21/22 Jose rded influenza virus vaccine, inactivated 05/10/20 Jose rded influenza virus vaccine, inactivated 07/14/19 Give n influenza virus vaccine, inactivated 07/28/16 Jose rded influenza virus vaccine, inactivated 06/04/15 Give n influenza virus vaccine, inactivated 06/21/13 Give n influenza virus vaccine, inactivated 05/12/12 Jose rded SARS-CoV-2 mRNA (Pfizer 12+) bivalent 1 03/18/23 R ecorded SARS-CoV-2 mRNA (Pfizer 12+) bivalent 2 05/29/22 R ecorded SARS-CoV-2 mRNA ([id number]) 3 12/31/21 Recorded SARS-CoV-2 (COVID-19) mRNA BNT-162b2 vax 4 06/12/21 Recorded SARS-CoV-2 (COVID-19) mRNA BNT-162b2 vax 5 11/03/20 Recorded SARS-CoV-2 (COVID-19) mRNA BNT-162b2 vax 6 10/13/20 Recorded tetanus/diphtheria/pertuss, acel (Tdap) 05/10/20 R ecorded tetanus/diphtheria/pertuss, acel (Tdap) 04/18/09 R ecorded pneumococcal 13-valent vaccine 7 04/23/15 Given hepatitis B adult vaccine 11/17/13 Given pneumococcal 23-valent vaccine 11/17/13 Given pneumococcal 23-valent vaccine 8 04/23/06 Recorded 1Result Comment: 2023-03-18: Historical information-source unspecified 2Result Comment: 2023-03-18: Historical information-source unspecified 3Result Comment: 2023-03-18: Historical information-source unspecified 4Result Comment: 2023-03-18: Historical information-source unspecified 5Result Comment: 2023-03-18: Historical information-source unspecified 6Result Comment: 2023-03-18: Historical information-source unspecified 7Early/Late Reason: Other : Nurse was busy. Injection was given at the time it was ordered. Just nowcharting. 8Result Comment: 2023-03-18: Historical information-source unspecified Medications Adult Aspirin 81 mg oral tablet, chewable Start: 07/27/19 9:17:00 EST Start Date: 07/27/19 Status: Ordered alendronate 70 mg oral tablet Start: 04/15/23 7:58:00 EDT, See Instructions, Disp# 4 tab, Refills: 5, Take 1 tablet by mouth oncea week, Pharmacy: [facility] [id number] Start Date: 04/15/23 Status: Ordered atorvastatin 20 mg oral tablet Start: 12/01/22 17:23:00 EDT, See Instructions, Disp# 90 tab, Refills: 3, Take 1 tablet by mouth once daily, Pharmacy: [facility] [id number] Start Date: 12/01/22 Status: Ordered famotidine 20 mg oral tablet Start: 08/03/23 15:26:00 EST, 1 tab, PO, bid, Disp# 60 tab, Refills: 3, Pharmacy: [facility] [id number] Start Date: 08/03/23 Stop Date: 12/01/23 Status: Ordered hydroCHLOROthiazide-lisinopril 12.5 mg-20 mg oral tablet Start: 02/27/23 12:05:00 EDT, See Instructions, Disp# 90 tab, Refills: 3, Take 1 tablet by mouth once daily, Pharmacy: [facility] [id number] Start Date: 02/27/23 Status: Ordered Lantus Vial 100 units/mL subcutaneous solution Start: 03/30/23 12:15:00 EDT, See Instructions, Disp# 10 mL, Refills: 2, INJECT 43 UNITS SUBCUTANEOUSLY IN THE MORNING, Brand Medically Necessary, Pharmacy: [id number] Start Date: 03/30/23 Status: Ordered liraglutide (Victoza) 18 mg/3 mL subcutaneous solution Start: 08/03/23 10:24:00 EST, 1.2 mg =, subQ, Daily, Disp# 6 mL, Refills: 5, SITES., Pharmacy: [facility] [address] Start Date: 08/03/23 Status: Ordered metFORMIN 1000 mg oral tablet Start: 05/25/23 15:31:00 EDT, See Instructions, Disp# 180 tab, Refills: 2, Take 1 tablet by mouth twice daily, Pharmacy: [facility] [address] Start Date: 05/25/23 Status: Ordered One Touch Verio Glucose Monitor Start: 08/04/23 13:27:00 EST, See Instructions, Disp# 1 each, Refills: 0, Use twice daily., Pharmacy: [facility] [address] Start Date: 08/04/23 Status: Ordered One Touch Verio Test Strips Start: 08/05/23 16:47:00 EST, See Instructions, Disp# 100 strip, Refills: 3, test glucose bid., Note to Pharmacy: Dx code E11.9, Pharmacy: [facility] [address] Start Date: 08/05/23 Status: Ordered pantoprazole 40 mg oral delayed release tablet Start: 04/01/23 17:18:00 EDT, See Instructions, Disp# 90 tab, Refills: 3, TAKE 1 TABLET BY MOUTH ONCE DAILY 30 MINUTES BEFORE SUPPER, Pharmacy: [facility] [id number] Start Date: 04/01/23 Status: Ordered Mental Status 08/03/23 Barriers to Learning one year None evide nt Mandatory Health Literacy Documentation Yes Health Literacy Communication Barriers N ever Primary Language Thai Problem List Condition Confirmation Course Effective Dates Status H ealth Status Informant DIABETES MELLITUS Confirmed Active GERD Confirmed Active Hyperlipemia Confirmed Active HYPERTENSION Confirmed Active Osteoporosis Confirmed Active Renal insufficiency Confirmed Active STROKE 1 Confirmed Active Weight disorder Confirmed Active 47825 Diagnosis Diagnosis Type Effective Dates Health Status Clinical Service Informant DIABETES MELLITUS Discharge Diagnosis 08/03/23 Renal insufficiency Discharge Diagnosis 08/03/23 HYPERTENSION Discharge Diagnosis 08/03/23 Hyperlipemia Discharge Diagnosis 08/03/23 Osteoporosis Discharge Diagnosis 08/03/23 GERD Discharge Diagnosis 08/03/23 Procedures Procedure Date Related Diagnosis Body Site Status Dual energy X-ray absorptiom etry (DEXA) scan of femoral neck result normal 1 5/5/22 Completed Mammogram 2 01/09/22 Completed Bone density scan 3 09/20/19 Compl eted Mammogram 4 09/20/19 Completed Colonoscopy 5 06/11/15 Completed MRI of brain 6 06/14/14 Completed Sections 7 Compl eted 1T-score of -2.8 10 year probability of fracture: Major osteoporotic - 19.2% Hip 6.8% Population [place] Based on DualFemur (left) neck BMD 2there is no mammographic evidence of malinancy 3AP Spine= -1.9 Dual Femur= -2.0 4No mammographic evidence of malignancy 5The examined portion of the ileum was normal. The entire examined colon is normal. No specimens collected. Repeat colo in 10 years. 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 7x3 Results Laboratory List Name Date Hemoglobin A1C (HEMOGLOBIN, A1C) 3 Most recent to oldest [Reference Range]: 1 Estimated Average Glucose 134 mg/dL (08/03/23 3:14 PM) HbA1c [<5.7 %] 6.3 % 1 *HI* (08/03/23 3:14 PM) 1Result Comment: ADA Recommended [place] Reference Range: Normal: <5.7% Prediabetes: 5.7-6.4% Diabetes: >6.4% Vital Signs Most recent to oldest [Reference Range]: 1 Patient Weight 68.7 kg (08/03/23 2:55 PM) Heart Rate 81 bpm (08/03/23 2:55 PM) Respiratory Rate 16 br/min (08/03/23 2:55 PM) Blood Pressure 136/60mmHg (08/03/23 2:55 PM) Cuff Pulse Pressure 76 mmHg (08/03/23 2:55 PM) Social History Social History Type Response Smoking Status Former Smoker, quit > 1 yr Sex Female FCM Outpt Note * BRIAN Raphael Tara: PERFORM Event Display: FCM Outpt Note Authored Date: [id number] Chief Complaint 4 month follow up, no concerns History of Present Illness Needs a new glucometer as hers broke. BSG that she showed me were good. GERD is worse. She does not eat spicy or really fatty food. She has one or two cups of coffee a day. No soda. She does not eat at least 2 hours before going to bed.She denies nausea/vomiting, dark tarry stools or blood in stools. Review of Systems Constitutional: No fever, chills, sweats EENT:No vision change, eye pain, rhinorrhea, sinus pain, epistaxis, dysphagia, change in hearing,tinnitus, vertigo, oral ulcers or lesions. Pulmonary: No shortness of breath, dyspnea with exertion, cough, hemoptysis, wheezing, chest pain. Cardiovascular: No chest pain, palpitations, syncope, edema, cyanosis, claudication, orthopnea. GI: No nausea, vomiting, diarrhea, melena, hematochezia, change in appetite, abdominal pain, changein bowel habits or stools. +GERD Musculoskeletal: No joint swelling or pain, muscle pain, back pain Neurologic: No headache, lightheadedness, dizziness Psychiatric: No depression, anxiety Dermatologic: No rash, new/growing/changing skin lesions Endocrine: No weight change, heat or cold intolerance, tremor, insomnia, polyuria, polydipsia, polyphagia, abnormal hair growth, change in nails Physical Exam Vitals & Measurements HR:81(Monitored) RR:16 BP:136/60 SpO2:99% WT:68.700kg(Dosing) WT:68.7kg PHQ2 Data(Data Documented on:08/03/2023 14:55) Emotional health assessment NEGATIVE head- normocephalic neck-no lymphadenopathy, masses, or thyromegaly, +carotid pulses, no bruits, trachea midline Pulmonary- chest expansion symmetric, CTA (clear to auscultation), eupnea, no adventitious sounds (rales, crackles, wheezes) CV (cardiovascular)- RRR no m/r/g (systolic ejection murmur, rubs, gallops), good peripheral perfusion abdomen- soft non-tender w/o masses, BS present, no hepatosplenomegaly, no bruits extremitiesNo edema or erythema. skin-good turgor w/o lesions, redness, cyanosis, edema nails- no clubbing or deformities w good cap refill Neuro:Alert, Oriented Psy:no homicidal or suicidal ideations. Assessment/Plan 1.DIABETES MELLITUS Acute/Chronic: chronic Goal:Resolution/ control Status:stable/controlled Data: records/pt report Plan:Will draw hgba1c today as it was not done with her other labs. Her bsg that she showed me were good (80-110 in am).Will order new glucometer for her. 2.HYPERTENSION Acute/Chronic: chronic Goal:Resolution/ control Status:stable/controlled Data: records/pt report Plan:BP well controlled. 3.Hyperlipemia Acute/Chronic: chronic Goal:Resolution/ control Status:stable/controlled Data: records/pt report Plan:Contd on statin. Will check lipidsin 3 to 4 mo. 4.Renal insufficiency Acute/Chronic: chronic Goal:Resolution/ control Status:stable/controlled Data: records/pt report Plan:Creat and EGFR is stable. 5.Osteoporosis Acute/Chronic: chronic Goal:Resolution/ control Status:stable/controlled Data: records/pt report Plan:Contd on fosamax. 6.GERD Acute/Chronic: chronic Goal:Resolution/ control Status:stable/controlled Data: records/pt report Plan:She is already on pantoprazole 40mg po daily. Will add famotadine. She is on asa due to previous hx of stroke. Follow up in one month. 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 Procedure/Surgical History Dual energy X-ray absorptiometry (DEXA) scan of femoral neck result normal (01/09/2022)Mammogram (01/09/2022)Bone density scan (09/20/2019)Mammogram (09/20/2019)Colonoscopy (06/11/2015)MRI of brain (06/14/2014) Sections Medications alendronate(alendronate 70 mg oral tablet), See Instructions aspirin(Adult Aspirin 81 mg oral tablet, chewable) atorvastatin(atorvastatin 20 mg oral tablet), See Instructions, 3 refills diabetes supplies(One Touch Verio Glucose Monitor), See Instructions diabetes supplies(One Touch Verio Test Strips), See Instructions, 3 refills famotidine(famotidine 20 mg oral tablet), 20 mg= 1 tab, PO, bid, 3 refills hydroCHLOROthiazide-lisinopril(hydroCHLOROthiazide-lisinopril 12.5 mg-20 mg oral tablet), See Instructions insulin glargine(Lantus Vial 100 units/mL subcutaneous solution), See Instructions, 2 refills liraglutide(liraglutide (Victoza) 18 mg/3 mL subcutaneous solution), 1.2 mg, subQ, Daily metFORMIN(metFORMIN 1000 mg oral tablet), See Instructions pantoprazole(pantoprazole 40 mg oral delayed release tablet), See Instructions, 3 refills Allergies NKA Social History Smoking Status Former Smoker, quit > 1 yr Alcohol - Denies Alcohol Use Exercise - Does not exercise Tobacco - Denies Tobacco Use Family History Diabetes: Mother. Heart attack: Mother. Heart attack: Father. Stroke: Mother. Type II diabetes mellitus: Sister and Brother. Health Status Family Member(s) Immunizations Vaccine Date Status SARS-CoV-2 (COVID-19) mRNA-vacc - [id number] 07/09/2023 Recorded influenza virus vaccine, inactivated 06/25/2023 Recorded SARS-CoV-2 mRNA (Pfizer 12+) bivalent 03/18/2023 Recorded Comments : 2023-03-18: Historical information-source unspecified influenza virus vaccine, inactivated 06/21/2022 Recorded SARS-CoV-2 mRNA (Pfizer 12+) bivalent 05/29/2022 Recorded Comments : 2023-03-18: Historical information-source unspecified SARS-CoV-2 mRNA ([id number]) 12/31/2021 Recorded Comments : 2023-03-18: Historical information-source unspecified SARS-CoV-2 (COVID-19) mRNA BNT-162b2 vax 06/12/2021 Recorded Comments : 2023-03-18: Historical information-source unspecified SARS-CoV-2 (COVID-19) mRNA BNT-162b2 vax 11/03/2020 Recorded Comments : 2023-03-18: Historical information-source unspecified SARS-CoV-2 (COVID-19) mRNA BNT-162b2 vax 10/13/2020 Recorded Comments : 2023-03-18: Historical information-source unspecified tetanus/diphtheria/pertuss, acel (Tdap) 05/10/2020 Recorded influenza virus vaccine, inactivated 05/10/2020 Recorded influenza virus vaccine, inactivated 07/14/2019 Given influenza virus vaccine, inactivated 07/28/2016 Recorded influenza virus vaccine, inactivated 06/04/2015 Given pneumococcal 13-valent vaccine 04/23/2015 Given Comments : Other : Nurse was busy. Injection was given at the time it was ordered. Just now charting. hepatitis B adult vaccine 11/17/2013 Given pneumococcal 23-valent vaccine 11/17/2013 Given influenza virus vaccine, inactivated 06/21/2013 Given influenza virus vaccine, inactivated 05/12/2012 Recorded tetanus/diphtheria/pertuss, acel (Tdap) 04/18/2009 Recorded pneumococcal 23-valent vaccine 04/23/2006 Recorded Comments : 2023-03-18: Historical information-source unspecified Recommendations Health Maintenance Pending(in the next year) Due Shingles Vaccine due08/03/23One-time only Due In Future Medicare Annual Wellness Visit not due until09/25/23and every 1year Diabetes Management A1c not due until01/29/24and every 366day Adult Influenza Vaccine not due until03/07/24and every 1year Diabetic Eye Exam not due until04/29/24and every 366day Body Mass Index not due until08/02/24and every 1year Satisfied(in the past 1 year) Satisfied Adult COVID-19 Vaccination on03/18/23.Satisfied by ALEXANDRIA Mcgarry Cassidy Adult Influenza Vaccine on06/25/23.Satisfied by MAURICE Lara Bobbi Body Mass Index on09/25/22.Satisfied by MAURICE Lara Bobbi Diabetes Management A1c on01/28/23.Satisfied by Contributor_system, [email or web address] Diabetes Nephropathy Management on09/19/22.Satisfied by Contributor_system, [email or web address] Diabetic Eye Exam on04/29/23.Satisfied by MAURICE Lara Bobbi Lipid Screening on09/19/22.Satisfied by Contributor_system, [email or web address] Medicare Annual Wellness Visit on09/25/22.Satisfied by BRIAN Raphael Tara Lab Results Test Name Test Result Date/Time Na 139 mmol/L 07/31/2023 08:28 EST K 4.7 mmol/L 07/31/2023 08:28 EST Cl- 104 mmol/L 07/31/2023 08:28 EST HCO3 27 mmol/L 07/31/2023 08:28 EST Anion Gap 8 mmol/L 07/31/2023 08:28 EST BUN 47 mg/dL 07/31/2023 08:28 EST Cret 1.38 mg/dL 07/31/2023 08:28 EST eGFR CKD-EPI 39 mL/min/1.73 m2 07/31/2023 08:28 EST Glu 158 mg/dL 07/31/2023 08:28 EST Ca 8.9 mg/dL 07/31/2023 08:28 EST Electronic Signature on File Electronically Reviewed/Signed by: BRIAN Holland Author Signature Dt/Tm:08/03/2023 04:38 PM Department of Family Medicine TB Patient Care team information Care Team Personnel Name: BRIAN Raphael Tara Position: Nurse Pract - Family Med Member Role: Lifetime Relationship Address: Address: [address] [place] [address] Name: MD Palacios Juan Position: Physician - Family Med Member Role: Primary Care Provider Address: Address: [address] [place] [address] Care Team Related Persons Name: MAG SILVA Address: [address] [id number] Name: SANJUANITA LAZO Address: home [address] [place], [place] [id number]
--- OUTSIDE RECORDS SUMMARY | 2023-10-13 03:36 | External Medical Summary | Continuity of Care Document ---
Author Name Unknown Organization [address] [id number] Care Team Providers Care Director Religious Education Name Role Phone Juma Palacios Primary Care Physician [phone] Encounter [facility] [id number] Date(s): 09/01/23 - 09/01/[address] [address] [phone] Encounter Diagnosis GERD(Discharge Diagnosis) - 09/01/23 DIABETES MELLITUS(Discharge Diagnosis) - 08/04/23 Discharge Disposition: Home or Self Care Attending Physician: BRIAN Raphael Tara Referring Physician: BRIAN Raphael Tara Allergies, Adverse Reactions, Alerts No Known Allergies Assessment and Plan Extracted from: Title:follow up GERD Author:BRIAN Raphael Tara Da te:09/01/23 1.GERD Acute/Chronic: chronic Goal:Resolution/ control Status:stable/controlled Data: records/pt report Plan:We discussedcontinuing with present regimenand modifying dietwith avoidance of triggering foods.Would then follow-up in approximately 2 months and if symptoms not better wouldrecommend EGD. Other option isto schedule an EGD. She opted tomodify diet and avoid trigger foods. Written fax sheets on GERDwill be presented at discharge. 2.DIABETES MELLITUS Acute/Chronic: chronic Goal:Resolution/ control Status:stable/controlled Data: records/pt report Plan: hgba1c 6.5%. Contd on present regimen. Will follow-up at the beginning of November2023. Time spent reviewing chart, face to face visit, ordersand documentation: 20 min Immunizations Given and Recorded Vaccine Date Status Refusal Reason RSV vaccine preF3, recombinant 08/19/23 Recorded SARS-CoV-2 (COVID-19) mRNA-vacc - [id number] 07/09/23 Recorded influenza virus vaccine, inactivated 06/25/23 [...] bivalent 2 05/29/22 R ecorded SARS-CoV-2 mRNA ([id number]) 3 12/31/21 Recorded SARS-CoV-2 (COVID-19) mRNA BNT-162b2 [...] 1 tablet by mouth oncea week, Pharmacy: [facility] Start Date: 04/15/23 Status: Ordered atorvastatin 20 mg oral tablet Start: 12/01/22 17:23:00 EDT, See Instructions, Disp# 90 tab, Refills: 3, Take 1 tablet by mouth once daily, Pharmacy: [facility] Start Date: 12/01/22 Status: Ordered famotidine 20 mg oral tablet Start: 08/03/23 15:26:00 EST, 1 tab, PO, bid, Disp# 60 tab, Refills: 3, Pharmacy: [facility] Start Date: 08/03/23 Stop Date: 12/01/23 Status: Ordered hydroCHLOROthiazide-lisinopril 12.5 mg-20 mg oral tablet Start: 02/27/23 12:05:00 EDT, See Instructions, Disp# 90 tab, Refills: 3, Take 1 tablet by mouth once daily, Pharmacy: [facility] Start Date: 02/27/23 Status: Ordered Lantus Vial 100 units/mL subcutaneous solution Start: 08/18/23 10:53:00 EST, 50 unit =, subQ, qAM, Disp# 10 mL, Refills: 5, Brand Medically Necessary, Pharmacy: [facility] Start Date: 08/18/23 Status: Ordered liraglutide (Victoza) 18 mg/3 mL subcutaneous solution Start: 08/03/23 10:24:00 EST, 1.2 mg =, subQ, Daily, Disp# 6 mL, Refills: 5, SITES., Pharmacy: [facility] Start Date: 08/03/23 Status: Ordered metFORMIN 1000 mg oral tablet Start: 05/25/23 15:31:00 EDT, See Instructions, Disp# 180 tab, Refills: 2, Take 1 tablet by mouth twice daily, Pharmacy: [facility] Start Date: 05/25/23 Status: Ordered One Touch Verio Glucose Monitor Start: 08/04/23 13:27:00 EST, See Instructions, Disp# 1 each, Refills: 0, Use twice daily., Pharmacy: [facility] Start Date: 08/04/23 Status: Ordered One Touch Verio Test Strips Start: 08/05/23 16:47:00 EST, See Instructions, Disp# 100 strip, Refills: 3, test glucose bid., Note to Pharmacy: Dx code E11.9, Pharmacy: [facility] Start Date: 08/05/23 Status: Ordered ONETOUCH VERIO FLEX KIT Start: 09/01/23 10:22:00 EST, ONETOUCH VERIO FLEX KIT, See Instructions, Disp# 1 each, Refills: 0, USE TO CHECK GLUCOSE TWICE DAILY, Pharmacy [facility] Start Date: 09/01/23 Status: Ordered pantoprazole 40 mg oral delayed release tablet Start: 04/01/23 17:18:00 EDT, See Instructions, Disp# 90 tab, Refills: 3, TAKE 1 TABLET BY MOUTH ONCE DAILY 30 MINUTES BEFORE SUPPER, Pharmacy: [facility] Start Date: 04/01/23 Status: Ordered Mental Status 09/01/23 Barriers to Learning one year None evide nt Mandatory Health Literacy Documentation Yes Health Literacy Communication Barriers N ever Primary Language Danish Problem List Condition Confirmation Course Effective Dates Status H ealth Status Informant DIABETES MELLITUS Confirmed Active GERD Confirmed Active Hyperlipemia Confirmed Active HYPERTENSION Confirmed Active Osteoporosis Confirmed Active Renal insufficiency Confirmed Active STROKE 1 Confirmed Active Weight disorder Confirmed Active 26379 Diagnosis Diagnosis Type Effective Dates Health Status inical Service Informant DIABETES MELLITUS Discharge Diagnosis 08/04/23 Non-Specified GERD Discharge Diagnosis 09/01/23 Procedures Procedure Date Related Diagnosis Body Site Status Dual energy X-ray absorptiom etry (DEXA) scan of femoral neck result normal 1 01/09/22 Completed Mammogram 2 01/09/22 Completed Bone density [...] occipital lobe infarct as described above. 7x3 Vital Signs Most recent to oldest [Reference Range]: 1 Patient Weight 68.4 kg (09/01/23 2:30 PM) Heart Rate 84 bpm (09/01/23 2:30 PM) Respiratory Rate 16 br/min (09/01/23 2:30 PM) Blood Pressure 116/54mmHg (09/01/23 2:30 PM) Cuff Pulse Pressure 62 mmHg (09/01/23 2:30 PM) Social History Social History Type Response Smoking Status Former Smoker, quit > 1 yr Sex Female [facility] Outpt Note * BRIAN Raphael Tara: PERFORM Event Display: [facility] Outpt Note Authored Date: [id number] Chief Complaint follow up for gerd, not doing to bad. sometimesa better. continues with indigetsion occassionally History of Present Illness She was here a month ago and was having worsening GERD. She was already on pantoprazole 40 mgtherefore added famotidine 20 twice daily. She states that she is having lessheartburn/GERD. Howevercertain foods will flaresymptoms. She denies any dark tarry stools or blood in her stoolsor nausea vomiting. Review of Systems Constitutional: No fever, chills, sweats Cardiac: no chest pain, palpitations, edema Pulmonary: No shortness of breath, dyspnea with exertion, cough, hemoptysis, wheezing, chest pain. GI: As per HPI Physical Exam Vitals & Measurements HR:84(Monitored) RR:16 BP:116/54 SpO2:98% WT:68.4kg WT:68.400kg(Dosing) PHQ2 Data(Data Documented on:09/01/2023 14:30) Emotional health assessment NEGATIVE head- normocephalic throat- pharynx non erythematous, no exudate, no masses mouth- buccal mucosa, moist and intact, dentition intact, no caries neck-no lymphadenopathy Pulmonary- chest expansion symmetric, CTA (clear to auscultation), eupnea, no adventitious sounds (rales, crackles, wheezes) CV (cardiovascular)- RRR no m/r/g (systolic ejection murmur, rubs, gallops), good peripheral perfusion abdomen- soft non-tender w/o masses, BS present, no hepatosplenomegaly, no bruits Neuro:Alert, Oriented Assessment/Plan 1.GERD Acute/Chronic: chronic Goal:Resolution/ control Status:stable/controlled Data: records/pt report Plan:We discussedcontinuing with present regimenand modifying dietwith avoidance of triggering foods.Would then follow-up in approximately 2 months and if symptoms not better wouldrecommend EGD. Other option isto schedule an EGD. She opted tomodify diet and avoid trigger foods. Written fax sheets on GERDwill be presented at discharge. 2.DIABETES MELLITUS Acute/Chronic: chronic Goal:Resolution/ control Status:stable/controlled Data: records/pt report Plan:hgba1c 6.5%. Contd on present regimen. Will follow-up at the beginning of November2023. Time spent reviewing chart, face to face visit, ordersand documentation: 20 min Problem List/Past Medical History Ongoing DIABETES [...] Instructions, 3 refills diabetes supplies(One Touch Verio Test Strips), See Instructions, 3 refills diabetes supplies(One Touch Verio Glucose Monitor), See Instructions famotidine(famotidine 20 mg oral tablet), 20 mg= 1 tab, PO, bid, 3 refills hydroCHLOROthiazide-lisinopril(hydroCHLOROthiazide-lisinopril 12.5 mg-20 mg oral tablet), See Instructions insulin glargine(Lantus Vial 100 units/mL subcutaneous solution), 50 unit, subQ, qAM liraglutide(liraglutide (Victoza) 18 mg/3 mL subcutaneous solution), 1.2 mg, subQ, Daily metFORMIN(metFORMIN 1000 mg oral tablet), See Instructions pantoprazole(pantoprazole 40 mg oral delayed release tablet), See Instructions, 3 refills unlisted medication(ONETOUCH VERIO FLEX KIT), See Instructions Allergies NKA Social History Smoking Status Former Smoker, quit > 1 yr Alcohol - Denies Alcohol Use Exercise - Does not exercise Tobacco - Denies Tobacco Use Family History Diabetes: Mother. Heart attack: Mother. Heart attack: Father. Stroke: Mother. Type II diabetes mellitus: Sister and Brother. Health Status Family Member(s) Immunizations Vaccine Date Status RSV vaccine preF3, recombinant 08/19/2023 Recorded SARS-CoV-2 (COVID-19) mRNA-vacc - [id number] 07/09/2023 Recorded influenza virus vaccine, inactivated 06/25/2023 Recorded SARS-CoV-2 mRNA (Pfizer 12+) bivalent 03/18/2023 Recorded Comments : 2023-03-18: Historical information-source unspecified influenza virus vaccine, inactivated 06/21/2022 Recorded SARS-CoV-2 mRNA (Pfizer 12+) bivalent 05/29/2022 Recorded Comments : 2023-03-18: Historical information-source unspecified SARS-CoV-2 mRNA ([id number]) 12/31/2021 Recorded Comments : 2023-03-18: Historical information-source [...] Health Maintenance Pending(in the next year) Due Adult Social Determinants of Health Screening due09/01/23Unknown Frequency Shingles Vaccine due09/01/23One-time only Due In Future Medicare Annual Wellness Visit not due until09/25/23and every 1year Adult Influenza Vaccine not due until03/07/24and every 1year Diabetic Eye Exam not due until04/29/24and every 366day Diabetes Management A1c not due until08/03/24and every 366day Satisfied(in the past 1 year) Satisfied Adult COVID-19 Vaccination on03/18/23.Satisfied by ALEXANDRIA Mcgarry Cassidy Adult Influenza Vaccine on06/25/23.Satisfied by MAURICE Lara Bobbi Body Mass Index on09/25/22.Satisfied by MAURICE Lara Bobbi Diabetes Management A1c on08/03/23.Satisfied by Contributor_system, [id number] Diabetes Nephropathy Management on09/19/22.Satisfied by Contributor_system, [id number] Diabetic Eye Exam on04/29/23.Satisfied by MAURICE Lara Bobbi Lipid Screening on09/19/22.Satisfied by Contributor_system, [id number] Medicare Annual Wellness Visit on09/25/22.Satisfied by BRIAN Raphael Tara Electronic Signature on File Electronically Reviewed/Signed by: BRIAN Holland Author Signature Dt/Tm:09/01/2023 02:57 PM Department of Family Medicine TB Patient Care team information Care Team Personnel Name: BRIAN Raphael Tara Position: Nurse Pract - Family Med Member Role: Lifetime Relationship Address: Address: [address] [place] [id number] [place] Name: MD Palacios Juan Position: Physician - Family Med Member Role: Primary Care Provider Address: Address: [address] [place] [address], [place] [address] [place] Care Team Related Persons Name: MAG SILVA Address: home [address] [facility] [place] [phone] Name: SANJUANITA LAZO Address: home [address] [facility] [place] [id number]
[2023-10-13 03:48] LABS: Basophils # (auto) 0.04 K/uL (0.00-0.20); Basophils % (auto) 0.2 %; Eosinophils # (auto) 0.01 K/uL (0.00-0.50); Immature Granulocytes # (auto) 0.18 K/uL (0.01-0.20); Immature Granulocytes % (auto) 0.8 %; Lymphocytes % (auto) 6.9 %; Monocytes # (auto) 1.33 K/uL (0.11-0.59); Monocytes % (auto) 5.7 %; Neutrophils # (auto) 19.98 K/uL (1.40-6.50); Neutrophils % (auto) 86.4 %
[2023-10-13 04:03] LABS: iSTAT Art Bld Gas pCO2 Correct 25 mmHg (35-46); iSTAT Art Bld Gas pH Corrected 7.549 (7.35-7.45); iSTAT Arterial Blood Gas HCO3 22 meg/L (19-24); iSTAT Arterial Blood Gas pCO2 24 mmHg (35-46); iSTAT Arterial Blood Gas pH 7.56 (7.35-7.45); iSTAT Arterial Blood Gas pO2 97 mmHg (80-95); iSTAT Arterial Blood Gas pO2 C 100; iSTAT Carbon Dioxide 22 mmol/L (24-31); iSTAT FiO2 40 %; iSTAT Hematocrit 37 % (37-47); iSTAT Hemoglobin 12.6 g/dl (12.0-16.0); iSTAT Potassium 3.6 mmol/L (3.3-5.0); iSTAT Site Art Line; iSTAT Sodium 140 mmol/L (135-144)
[2023-10-13] MEDS: CEFEPIME 1,000 MG in SYRINGE 0 ML IV SCH (05:28)
--- NOTE | 2023-10-13 07:23 | XRay Report ---
XR chest 1V portable CLINICAL HISTORY: tube/line placement COMPARISON STUDY: Chest radiograph October 12, 2023 at 5:50 PM. FINDINGS: The tip of the endotracheal tube is 3.8 cm above the shad. Tip of nasogastric tube is bel ow the lower aspect of this image but at least within the mid body of the stomach. Interval placement of a right internal jugular central line. No pneumothorax. Tip of catheter projects over the mid SVC . There are small bilateral pleural effusions. Interstitial alveolar opacities slightly progressed. IMPRESSION: 1. Satisfactory positioning of lines and tubes. No pneumothorax. 2. Progression of interstitial and alveolar opacities which favor pulmonary edema although multifocal pneumonia could appear similar. 3. Small bilateral pleural effusions. ACT 112: Negative or not required by law. Electronically signed by: Arthur Nash M.D. 10/13/2023 7:22 AM
--- NOTE | 2023-10-13 07:50 | Electrocardiogram Report ---
Test Reason : Blood Pressure : / mmHG Vent. Rate : 120 BPM Atrial Rate : 120 BPM P-R Int : 126 ms QRS Dur : 134 ms QT Int : 354 ms P-R-T Axes : 074 -38 145 degrees QTc Int : 500 ms Sinus tachycardia Left axis deviation Left ventricular hypertrophy with QRS widening and repolarization abnormality ST depression in Lateral leads , consider ischemia Abnormal ECG When compared with ECG of 27-APR-2009 09:59, Vent. rate has increased BY 47 BPM QRS duration has increased ST now depressed in Lateral leads Confirmed by Asa Crooks ([id number]) on 10/13/2023 7:49:46 AM Referred By: REFERRED SELF Confirmed By:Asa Crooks
--- NOTE | 2023-10-13 07:54 | XRay Report ---
XR chest 1V portable CLINICAL HISTORY: eval lines/tubes/lung meyers COMPARISON STUDY: Chest radiograph and chest CT October 12, 2023. FINDINGS: Right internal jugular central line remains in place. The tip of the endotracheal tube is 1 .9 cm above the shad. Tip of nasogastric tube is below the lower aspect of this image but at least within the body of the stomach. There is no pneumothorax. There are small bilateral pleural effusions . Extensive bilateral airspace opacities have progressed and interstitial thickening persists. IMPRESSION: 1. Satisfactory positioning of lines and tubes. 2. Persistent pulmonary edema with small bilateral pleural effusions. No pneumothorax. 3. Progression of extensive bilateral airspace opacities which favor pneumonia or aspiration pneumoni tis. ACT 112: Negative or not required by law. Electronically signed by: Arthur Nash M.D. 10/13/2023 7:52 AM
[2023-10-13] MEDS: DEXTROSE 50% 50 ML SYRINGE IV PRN (08:49)
--- NOTE | 2023-10-13 08:58 | Procedure Note ---
Procedure Note Date of Service October 13, 2023 Note PREOPERATIVE DIAGNOSIS: Multifocal pneumonia POSTOPERATIVE DIAGNOSIS: Multifocal pneumonia PROCEDURE PERFORMED: Flexible fiberoptic bronchoscopy with bronchial washings from the bilateral lower lobes COMPLICATIONS: None. INDICATION: Evaluate for foreign bodies and clear airways PROCEDURE: Informed consent was obtained from the patient's at bedside as the patient is currently sedated and intubated. Timeout performed directly prior to the procedure. Patient was on the ventilator and FiO2 was increased to 100% prior to insertion of the bronchoscope. Continuous propofol and fentanyl were infusing at the time of the procedure. Vital signs were closely monitored throughout the procedure. Bronchoscope was inserted via the endotracheal tube adapter. Endotracheal tube appeared appropriately positioned above the shad approximately 3 cm. Trachea appeared normal. Shad appeared sharp. Bilateral tracheobronchial tree inspection was performed with no obvious endobronchial lesions or bleeding seen. Patient had some mild dynamic airway collapse of the posterior tracheal wall. I wedged the scope into the right lower lobe and instilled approximately 25 mL of saline. About 15 mL fluid was aspirated back. We then turned our attention to the left lower lobe and instilled approximately 20 mL of saline into the left lower lobe. About 15 mL of fluid was aspirated back. Milky looking secretions were aspirated back from the lower lobes bilaterally. The scope was then withdrawn to the level of the shad. No significant bleeding was seen. Minor scope trauma was noted. The scope was then completely withdrawn. As noted above, no obvious endobronchial lesions or foreign bodies identified. Patient tolerated the procedure well. Recommendations: Milky looking secretions aspirated back to the bilateral lower lobes. These will be sent for culture. Patient tolerated the procedure well. Continue with mechanical ventilation at this time with goal for SBT and possible extubation later today. Coding CPT Codes Pulmonary/Thoracic - Pulmonary and Thoracic: 44960 Dx bronchoscopy/wash ([id number]) [facility] Codes (Charges) Pulmonary/Thoracic Procedure 1: Pulmonary and Thoracic: 20939 Dx bronchoscopy/wash
--- NOTE | 2023-10-13 09:03 | Hospitalist Progress Note ---
Date of Service October 13, 2023 Assessment & Plan (1) Cardiogenic shock: Plan: Suspect cardiogenic shock, 3 v CAD on [facility] Secondary to likely physiological strain with three-vessel disease from pneumonia. Seems euvolemic at this point in time still with intermittent chest pain Blood pressure limits antianginal medications at this time patient is heparinized Patient became ill and decompensated fairly rapidly Approximate 12:00 patient developed substernal chest pain. Around 3 PM developed progressive cough shortness of breath and dyspnea Rapid decompensation while in ER. Patient was intubated for airway protection Lactate 8.5, since trended down Procalcitonin is negative CTA PE ruled out PE troponin peaked at 51,000, [facility] suggests need for revascularization (2) Multifocal pneumonia: Plan: Patient with multifocal pneumonia seen on CT scan. Likely possibility of aspiration pneumonia during resuscitative efforts. Patient remains on broad- spectrum antibiotics, was on vancomycin but nasal swab negative remains on Zosyn therapy (previously on cefepime but changed to Zosyn for possibility of aspiration) treating Gram negative pneumonia (3) Hypertension: Plan: Antihypertensives held, patient with hypotensive shock on admission, blood pressure still low prohibiting the use of some antianginals (4) Hyperlipidemia: Plan: Atorvastatin held on admission (5) Chronic kidney disease: Plan: AGUSTIN with CKD3 Nephrology consulted (6) GERD (gastroesophageal reflux disease): Plan: IV PPI for gastric protection (7) Diabetes: Plan: - BSG 350 on admit exam. s/p 5u IV insulin. Repeat pending. ICU hypoglycemia protocol vs gtt History of type 2 diabetes on metformin and 50 units nightly of Lantus Patient recently was prescribed Trulicity but has not yet started this per family Plan CODE STATUS: Full codeAt time of admission/progression to Inventory Auditor. Discussed with family Admission and Anticipated Discharge Date Admission Date: October 12, 2023 Subjective Patient extubated today she continues to do well however she is having intermittent mild chest discomfort and a full sensation in her throat which likely could be secondary to her recent intubation Chest discomfort is concerning as she has three-vessel disease and recommended for possible revascularization however has significant pneumonia which will likely need to be treated. Patient is have elevation of her troponin which is trending downward Physical Exam Physical Exam: Patient is awake and alert she has a raspy voice her cardiac exam is distant regular without systolic murmur Her lungs have bilateral decreased breath sounds and dullness at both bases Extremities without edema Results & Data Results & Data Vital Signs (Past 12 Hours) Vital Signs Pulse Resp BP Pulse Ox Pulse Ox O2 Del Method FiO2 10/13/23 07:44 88 18 98 30 10/13/23 07:17 89/46 L 10/13/23 04:30 97 H 18 99 10/13/23 04:30 129/73 10/13/23 04:20 134/74 10/13/23 04:20 99 H 18 99 10/13/23 04:10 87 22 100 10/13/23 04:10 112/56 L 10/13/23 04:00 110/59 L 10/13/23 04:00 81 18 99 10/13/23 04:00 83 18 99 40 10/13/23 04:00 40 10/13/23 04:00 100 Mechanical Vent 10/13/23 04:00 85 115/58 L 10/13/23 03:50 84 25 H 100 10/13/23 03:50 107/61 10/13/23 03:40 85 25 H 100 10/13/23 03:40 115/67 10/13/23 03:30 92 H 25 H 100 10/13/23 03:30 107/66 10/13/23 03:20 81 25 H 100 10/13/23 03:20 117/62 10/13/23 03:10 84 25 H 100 10/13/23 03:10 88/62 L 10/13/23 03:00 84 25 H 99 10/13/23 03:00 100/57 L 10/13/23 02:50 108/60 10/13/23 02:50 85 25 H 100 10/13/23 02:40 108/58 L 10/13/23 02:40 87 25 H 100 10/13/23 02:30 98/56 L 10/13/23 02:30 86 25 H 100 10/13/23 02:20 84 25 H 99 10/13/23 02:20 79/55 L 10/13/23 02:10 84 25 H 99 10/13/23 02:10 109/64 10/13/23 02:00 85 25 H 99 10/13/23 02:00 99/66 L 10/13/23 01:53 40 10/13/23 01:50 102/58 L 10/13/23 01:50 84 25 H 100 10/13/23 01:40 91/57 L 10/13/23 01:40 83 25 H 100 10/13/23 01:30 83 25 H 100 10/13/23 01:30 92/57 L 10/13/23 01:21 86 106/54 L 10/13/23 01:20 99/60 L 10/13/23 01:20 87 25 H 100 10/13/23 01:10 85 25 H 100 10/13/23 01:10 96/67 L 10/13/23 01:00 83 25 H 99 10/13/23 01:00 89/62 L 10/13/23 00:50 88 25 H 100 10/13/23 00:50 90/55 L 10/13/23 00:40 90 25 H 100 10/13/23 00:40 87/60 L 10/13/23 00:31 70 10/13/23 00:30 88 25 H 100 10/13/23 00:30 99/55 L 10/13/23 00:20 78/55 L 10/13/23 00:20 82 25 H 100 10/13/23 00:15 80 10/13/23 00:10 81 25 H 100 10/13/23 00:10 80/56 L 10/13/23 00:00 81 25 H 100 10/13/23 00:00 82/59 L 10/13/23 00:00 70 10/13/23 00:00 100 Mechanical Vent 10/13/23 00:00 82 10/12/23 23:50 82 25 H 100 10/12/23 23:50 85/60 L 10/12/23 23:40 87/62 L 10/12/23 23:40 82 25 H 100 10/12/23 23:30 80/53 L 10/12/23 23:30 88 25 H 100 10/12/23 23:20 88 25 H 100 10/12/23 23:20 90/61 L 10/12/23 23:10 87 25 H 100 10/12/23 23:10 85/61 L 10/12/23 23:10 100 10/12/23 23:00 91 H 25 H 96 10/12/23 23:00 103/64 10/12/23 22:50 87 25 H 100 10/12/23 22:40 87 25 H 100 10/12/23 22:37 87 25 H 100 90 10/12/23 22:30 88 25 H 100 10/12/23 22:30 102/76 10/12/23 22:20 85 25 H 100 10/12/23 22:14 95 H 25 H 100 10/12/23 22:14 115/73 10/12/23 22:10 89 25 H 100 10/12/23 22:00 96 H 25 H 100 10/12/23 21:50 86 25 H 100 10/12/23 21:40 90 25 H 100 10/12/23 21:30 92 H 25 H 100 10/12/23 21:20 97 H 25 H 100 10/12/23 21:10 95 H 25 H 100 10/12/23 21:00 101 H 25 H 100 Laboratory Results Reviewed CBC Reviewed chemistry Reviewed troponin trending Spoke to family on 2 occasions both pre and post extubation Discussed case with intensive care medicine PG Care Time/CCT Total # of Minutes Spent Total Time Spent with Patient: Total time spent is greater than 50% in coordination of care (as documented) at patient's floor/unit and/or counseling patient: Coding Level of Care Code 89353 SUB INP/OBS CARE 3/50MIN Diagnoses Cardiogenic shock R57.0 Multifocal pneumonia J18.9 Hypertension I10 Hyperlipidemia E78.5 Chronic kidney disease N18.9 GERD (gastroesophageal reflux disease) K21.9 Diabetes E11.9
--- NOTE | 2023-10-13 09:05 | Electrocardiogram Report ---
Test Reason : Blood Pressure : / mmHG Vent. Rate : 127 BPM Atrial Rate : 127 BPM P-R Int : 134 ms QRS Dur : 128 ms QT Int : 384 ms P-R-T Axes : 054 -45 144 degrees QTc Int : 558 ms Sinus tachycardia Left axis deviation Left ventricular hypertrophy with QRS widening and repolarization abnormality Abnormal ECG When compared with ECG of 12-OCT-2023 17:19, No significant change Confirmed by Asa Crooks ([id number]) on 10/13/2023 9:04:28 AM Referred By: REFERRED SELF Confirmed By:Asa Crooks
[2023-10-13] MEDS: fentaNYL BOLUS from BAG IV PRN (09:06)
--- NOTE | 2023-10-13 09:27 | XCELERA ---
[id number] \\[id number]}___[id number]
[2023-10-13] MEDS: ATORVASTATIN 40 MG TAB PO SCH (09:29)
--- NOTE | 2023-10-13 09:32 | Critical Care Progress Note ---
Date of Service October 13, 2023 Assessment & Plan (1) Chronic kidney disease: (2) Hypertension: (3) Hyperlipidemia: (4) GERD (gastroesophageal reflux disease): (5) Diabetes: (6) Obesity: (7) Cardiogenic shock: (8) Shock: (9) Hypoxic respiratory failure: (10) Aspiration pneumonia: Plan Reason Critically Ill: 77 YOF presents with acute onset dyspnea and chest pain with rapidly progressing bilateral pulmonary opacities requiring emergent intubation, mechanical ventilation, and underwent emergent cardiac catherization without culprit lesion identified. To the ICU on Vasopressors, intubated and sedated. Neuro - Sedation for mechanical ventialtion Patient off sedation at this time. Following commands. goal for possible extubation later today. Cardiac - Shock unspecified, CAD, elevated HsCTNI, LBB new - Patient with shock unspecified at this time but differential includes cardiogenic vs. distributive secondary to sepsis - She is with acute onset dyspnea and progressive worsening bilateral patchy opacities on CXR- CT scan post appears more consistent with a pneumonia vs. pulmonary edema - Continue vasopressor support- wean epinepherine and attempt to change to Levophed or Neosynephrine- she is currently with tachycardia and adequate MAP on epinephrine and tolerating weaning with decrease in HR - CAD- recommended referral for CABG evaluation when stabilized - Continue to trend HsCTNI until PEAK and follow ECGs- at this time likely demand typ II in the setting of no acute thrombus seen on cath - ECHO pending Respiratory - abnormal CT scan, bilateral patchy opacities, bilateral small/mod pleural effusions -Patient with bibasilar pneumonia likely secondary to aspiration. Status post bronchoscopy 10/13/2023 the bilateral lower lobes with washings from this area. Continue broad-spectrum antibiotics. Patient currently on SBT today. Will trial for extubation. GI - No acute needs - OGT in place- continue to LIWS - initiate feedings if vasopressor requirements decrease as well as if remains intubated in morning RENAL/LYTES - NAOMI II on CKD, AGAP metabolic acidosis, lactic acidosis - Continue with supportive care and vasopressors to maintain map >65- as above attempt to wean inotrope and replace with vasopressor - AGAP metabolic acidosis secondary to shock and lactic acidosis - GAP decreasing as lactate downtrends - Lactate downtrending, making adequate urine, MAPS currently adequate - renally dose medications as applicable- appreciate pharmacy assistance - No acute needs - Yoshi to gravity ENDO - DMII, Hyperglycemia - Hyperglycemia management per icu pharmacy HEME - No acute needs ID - Severe sepsis remians as possiblity and can't rule out at this time - Blood, sputum cultures pending -[facility] cultures pending. - Urine is negative -MRSA screen negative. Vancomycin discontinued. Cefepime switched to Zosyn. LINES/IV ACCESS - PIV, CVL, Christine, ETT, OGT, Belle Continue use of these lines DVT PROPHYLAXIS - SCDS, Heparin 5000 units subq TID DISPO: Remain in ICU while on pressors and intubated. CRITICAL CARE TIME - I have personally spent 51 minutes of critical care time in the direct management of this patient. This is a life/limb threatening event. This includes time spent evaluating patient, direct bedside care, chart review, placing orders, interpretation of diagnostic studies, discussion with consultants, patient, and family members, as well as other required patient management activities. This time is exclusive of all separately billable procedures, and teaching time and separate from and in addition to any other critical care service time. Admission and Anticipated Discharge Date Admission Date: October 12, 2023 Subjective Patient seen and examined. She is off of sedation at this time. She is awake and alert. She tolerated bronchoscopy well this morning. She is tolerating a spontaneous breathing trial. She remains on epinephrine and vasopressin. Review of Systems Review of Systems: Unobtainable due to endotracheal tube Physical Exam Physical Exam: PHYSICAL EXAM: General: intubated and sedated Head: Normocephalic, atraumatic ENT: PERRLA, EOMI, no pharyngeal exudate, mucous membranes moist Neuro: Intubated and sedated- PEERLA bilaterally, moving bilateral arms on arrival, Chest: equal rise and fall of the chest, no accessory muscle use, scattered rhonchi throughout bilaterally Cardiac: Regular rate and rhythm, telemetry reviewed- NSR with ST depressions, skin cool and dry, cap refill >3 seconds, peripheral pusles +2 no JVD,no murmur, no edema GI: NABS x 4 quadrants, soft, nontender to palpation, no rebound, guarding or tenderness : Belle to gravity draining yellow urine Extremities: Normal inspection, no peripheral edema or erythema, calfs nontender to palpation Skin: no rash or erythema Results & Data Results & Data Vital Signs (Past 12 Hours) Vital Signs Pulse Resp BP Pulse Ox Pulse Ox O2 Del Method FiO2 10/13/23 08:00 40 10/13/23 08:00 88 10/13/23 08:00 93 H 10/13/23 07:44 88 18 98 30 10/13/23 07:17 89/46 L 10/13/23 04:30 97 H 18 99 10/13/23 04:30 129/73 10/13/23 04:20 134/74 10/13/23 04:20 99 H 18 99 10/13/23 04:10 87 22 100 10/13/23 04:10 112/56 L 10/13/23 04:00 110/59 L 10/13/23 04:00 81 18 99 10/13/23 04:00 83 18 99 40 10/13/23 04:00 40 10/13/23 04:00 100 Mechanical Vent 10/13/23 04:00 85 115/58 L 10/13/23 03:50 84 25 H 100 10/13/23 03:50 107/61 10/13/23 03:40 85 25 H 100 10/13/23 03:40 115/67 10/13/23 03:30 92 H 25 H 100 10/13/23 03:30 107/66 10/13/23 03:20 81 25 H 100 10/13/23 03:20 117/62 10/13/23 03:10 84 25 H 100 10/13/23 03:10 88/62 L 10/13/23 03:00 84 25 H 99 10/13/23 03:00 100/57 L 10/13/23 02:50 108/60 10/13/23 02:50 85 25 H 100 10/13/23 02:40 108/58 L 10/13/23 02:40 87 25 H 100 10/13/23 02:30 98/56 L 10/13/23 02:30 86 25 H 100 10/13/23 02:20 84 25 H 99 10/13/23 02:20 79/55 L 10/13/23 02:10 84 25 H 99 10/13/23 02:10 109/64 10/13/23 02:00 85 25 H 99 10/13/23 02:00 99/66 L 10/13/23 01:53 40 10/13/23 01:50 102/58 L 10/13/23 01:50 84 25 H 100 10/13/23 01:40 91/57 L 10/13/23 01:40 83 25 H 100 10/13/23 01:30 83 25 H 100 10/13/23 01:30 92/57 L 10/13/23 01:21 86 106/54 L 10/13/23 01:20 99/60 L 10/13/23 01:20 87 25 H 100 10/13/23 01:10 85 25 H 100 10/13/23 01:10 96/67 L 10/13/23 01:00 83 25 H 99 10/13/23 01:00 89/62 L 10/13/23 00:50 88 25 H 100 10/13/23 00:50 90/55 L 10/13/23 00:40 90 25 H 100 10/13/23 00:40 87/60 L 10/13/23 00:31 70 10/13/23 00:30 88 25 H 100 10/13/23 00:30 99/55 L 10/13/23 00:20 78/55 L 10/13/23 00:20 82 25 H 100 10/13/23 00:15 80 10/13/23 00:10 81 25 H 100 10/13/23 00:10 80/56 L 10/13/23 00:00 81 25 H 100 10/13/23 00:00 82/59 L 10/13/23 00:00 70 10/13/23 00:00 100 Mechanical Vent 10/13/23 00:00 82 10/12/23 23:50 82 25 H 100 10/12/23 23:50 85/60 L 10/12/23 23:40 87/62 L 10/12/23 23:40 82 25 H 100 10/12/23 23:30 80/53 L 10/12/23 23:30 88 25 H 100 10/12/23 23:20 88 25 H 100 10/12/23 23:20 90/61 L 10/12/23 23:10 87 25 H 100 10/12/23 23:10 85/61 L 10/12/23 23:10 100 10/12/23 23:00 91 H 25 H 96 10/12/23 23:00 103/64 10/12/23 22:50 87 25 H 100 10/12/23 22:40 87 25 H 100 10/12/23 22:37 87 25 H 100 90 10/12/23 22:30 88 25 H 100 10/12/23 22:30 102/76 10/12/23 22:20 85 25 H 100 10/12/23 22:14 95 H 25 H 100 10/12/23 22:14 115/73 10/12/23 22:10 89 25 H 100 10/12/23 22:00 96 H 25 H 100 10/12/23 21:50 86 25 H 100 10/12/23 21:40 90 25 H 100 10/12/23 21:30 92 H 25 H 100 10/12/23 21:20 97 H 25 H 100 Coding Level of Care Code 41902 CRITICAL CARE 1ST 30-74M Diagnoses Chronic kidney disease N18.9 Hypertension I10 Hyperlipidemia E78.5 GERD (gastroesophageal reflux disease) K21.9 Diabetes E11.9 Obesity E66.9 Cardiogenic shock R57.0 Shock R57.9 Hypoxic respiratory failure J96.91 Aspiration pneumonia J69.0 Time Spent (min) 51
[2023-10-13] MEDS: ASPIRIN 81 MG ECTAB PO SCH (09:33)
[2023-10-13] MEDS: ASPIRIN 81 MG CHEW PO SCH (09:37)
[2023-10-13 09:48] LABS: Troponin I High Sensitivity 54142.5 pg/ml (0-14)
[2023-10-13] MEDS: POTASSIUM CHLORIDE 20 MEQ/15 ML UDC PO STA (10:11)
[2023-10-13] MEDS: PIPER/TAZO 4.5g in D5W MINI-B 100 ML IV ONE (10:12)
[2023-10-13 10:24] LABS: Magnesium 1.5 mg/dl (1.7-2.4)
--- NOTE | 2023-10-13 11:06 | Electrocardiogram Report ---
Test Reason : Blood Pressure : / mmHG Vent. Rate : 103 BPM Atrial Rate : 103 BPM P-R Int : 152 ms QRS Dur : 116 ms QT Int : 362 ms P-R-T Axes : 063 -35 171 degrees QTc Int : 474 ms Sinus tachycardia Left axis deviation Left ventricular hypertrophy with QRS widening and repolarization abnormality Abnormal ECG When compared with ECG of 12-OCT-2023 19:17, ST less depressed in Lateral leads Confirmed by Asa Crooks ([id number]) on 10/13/2023 11:06:05 AM Referred By: REFERRED SELF Confirmed By:Asa Crooks
[2023-10-13] MEDS: MAGNESIUM SULFATE / D5W 1 GM/100 ML BAG IV SCH (11:25)
[2023-10-13] MEDS ORDERED: PHARMACY GLYCEMIC MGMT CONSULT PRN (12:45)
[2023-10-13] MEDS: LANTUS PER UNIT CHARGE SC STA (13:16)
--- NOTE | 2023-10-13 13:49 | Pharmacy Report ---
Pharmacy Glycemic Short Note 2 - Date of Service October 13, 2023 - Glycemic Short BSG Results (Last 24 hours): 10/12/23 10/12/23 10/12/23 17:25 17:29 17:55 Glucose 351 H* POC Glucose 432 H* POC Glucose (other) 355 H* 10/12/23 10/12/23 10/12/23 19:49 20:48 21:57 Glucose 349 H* POC Glucose 354 H* POC Glucose (other) 361 H* 10/12/23 10/12/23 10/13/23 22:31 23:10 00:09 Glucose 344 H* POC Glucose POC Glucose (other) 305 H 266 H 10/13/23 10/13/23 10/13/23 01:12 02:03 02:14 Glucose 185 H POC Glucose POC Glucose (other) 222 H 194 H 10/13/23 10/13/23 10/13/23 03:33 04:38 05:31 Glucose POC Glucose POC Glucose (other) 167 H 148 H 130 H 10/13/23 10/13/23 10/13/23 07:31 07:41 08:41 Glucose POC Glucose 80 POC Glucose (other) 96 88 10/13/23 10/13/23 10/13/23 09:15 10:14 11:20 Glucose POC Glucose 147 H POC Glucose (other) 174 H 136 H 10/13/23 10/13/23 12:13 13:19 Glucose POC Glucose 126 H 119 H POC Glucose (other) OUTPATIENT ANTIDIABETIC REGIMEN: * Lantus 50 units Q HS * Metformin 1000mg BID * A1c = 6.4% ASSESSMENT: * Type 2 diabetic admitted for chest pain, SOB, resp failure, cardiogenic +/- septic shock * Patient had been intubated, sedated and required pressor support. IV insulin infusion utilized for glycemic control * This AM, patient has been extubated, pressors have been weaned off and there are plans for clear liquid diet later today * Will begin to transition patient to SQ basal/bolus regimen at this time. Given uncertain PO intake and rather high outpt basal insulin doses, will opt to dose regimen utilizing weight and "moderate" stress level. PLAN FOR INPATIENT GLYCEMIC CONTROL: * Hold outpatient oral diabetes medications (metformin) * Basal insulin * Lantus 12 units SQ BID - 1st dose STAT. DC insulin drip 2 hrs after 1st dose of Lantus. * Bolus insulin * NovoLog per scale ACHS with additional coverage at [phone] tonight * Goal Range: Low 110 mg/dL - High 140 mg/dL * Correction Factor: 25 mg/dL/unit * Nutritional / Prandial insulin per carb ratio of 1 unit per 10 grams CHO consumed
[2023-10-13] MEDS: PIPERACILLIN/TAZOBACTAM 4.5 GM in DEXTROSE 5% MINI-B 100 ML IV SCH (14:51)
[2023-10-13] MEDS: [UNRECOGNIZED DRUG - REMARK] ONE (14:52)
[2023-10-13] MEDS: ACETAMINOPHEN 500 MG TAB PO PRN (14:56)
--- NOTE | 2023-10-13 16:39 | Cardiology Consultation ---
Date of Consultation October 13, 2023 Assessment & Plan (1) Non-ST elevation NE (NSTEMI): This represents a type II (non-ACS) non-ST elevation NE. Likely from sepsis/hypoxia with respiratory failure with a baseline severe multivessel coronary disease. She will be treated medically for underlying coronary disease and newly diagnosed ischemic cardiomyopathy as below. (2) Left bundle branch block: This is likely old and is consistent with the LAD disease noted on catheterizati on. Certainly contributes to abnormal LV function. (3) Ischemic cardiomyopathy: Severe multivessel coronary artery disease. Mild volume overload at this time. Once she no longer requires vasopressor support then would initiate guideline directed medical therapy for systolic heart failure with reduced ejection fraction. Utilize carvedilol 3.125 mg p.o. twice daily or metoprolol succinate ER 25 mg daily and Entresto 24/26 mg p.o. twice daily as tolerated by blood pressure and heart rate. She should also be placed on an SGLT2 inhibitor such as Jardiance. She will likely require at least a low-dose chronic loop diuretic. Caution given her acute on chronic renal insufficiency. Her EF is greater than or equal to 35% and therefore she does not meet criteria for a wearable defibrillator or ICD implantation. (4) Coronary artery disease: Severe multivessel involving the left main, LAD, circumflex, and RCA. If she progresses well and is otherwise appropriate for discharge then I would recommend outpatient referral for coronary artery bypass grafting. If she fails to progress for discharge then inpatient transfer to tertiary center may be more appropriate. Guideline directed medical therapy for secondary prevention will include aspirin, a atorvastatin, and once able we will begin beta-maria victoria and ARB (component of Entresto). Also, spironolactone is appropriate for both ischemic cardiomyopathy and coronary artery disease and should be considered as part of her diuretic regimen. (5) Hypertension: Current blood pressure is low normal. Therefore cannot make any changes in her current regimen. (6) Hyperlipidemia: Patient is high risk. High intensity statin therapy is recommended. Would increase her atorvastatin to at least 40 mg p.o. daily. Plan I will follow-up with patient tomorrow. History of Present Illness Reason for Consultation: Left bundle branch block, possible STEMI Attending Physician: Koffi Shaw MD History of Present Illness 77-year-old female whom I was called to see emergently last night after she presented to the emergency department with complaints of shortness of breath and tightness in the chest. EKG demonstrated wide-complex tachycardia and a left bundle branch block of unknown duration. On my arrival she had already been intubated and sedated so further discussion was not possible. What was relayed to EMS was that the patient had indigestion after eating. Then she started having significant shortness of breath. Tests x-ray in the emergency department was suggestive of either multifocal pneumonia or congestive heart failure. Unfortunately, she does not follow regularly in this health system but she did have an EKG from 2008 which demonstrated LVH with QRS widening but no left bundle branch block identified at that time. Since we were uncertain if this represented an ACS we took her emergently to the cardiac catheterization suite where she underwent coronary angiography. This revealed severe multivessel coronary disease but no acute thrombotic lesions to suggest this was ACS. She was subsequently admitted to the intensive care unit for further workup and management. She was requiring IV pressor support with epinephrine and bolus doses of phenylephrine. An echocardiogram was ordered. She was started on antibiotics. She was also noted to have renal insufficiency and received IV fluids. Today she has been extubated and is doing better. Her family is at the bedside. She has no anginal chest discomfort. I had spoken with the family last night about the severe coronary disease and that the plan would be for referral to tertiary center for coronary artery bypass grafting once that she had recovered from her pneumonia. She has no complaints at this time. Allergies Allergy/AdvReac Type Severity Reaction Status Date / Time No Known Allergies Allergy Unknown NONE KNOWN Verified 04/15/22 09:04 Home Medications Medication Instructions Recorded Confirmed Type aspirin 81 mg chewable tablet 81 mg PO DAILY 03/11/22 10/12/23 History atorvastatin 20 mg tablet 20 mg PO DAILY 03/11/22 10/12/23 History lisinopril 20 1 tab PO DAILY 03/11/22 10/12/23 History mg-hydrochlorothiazide 12.5 mg tablet metformin 1,000 mg tablet 1,000 mg PO BID 03/11/22 10/12/23 History pantoprazole 40 mg tablet,delayed 40 mg PO DAILY 03/11/22 10/12/23 History release insulin glargine 100 unit/mL (3 50 unit subcut QPM 03/13/22 10/12/23 History mL) subcutaneous pen (Lantus Solostar U-100 Insulin) maryronate 70 mg tablet 70 mg PO WK 10/12/23 10/12/23 History dulaglutide 0.75 mg/0.5 mL 0.75 mg subcut WK 10/12/23 10/12/23 History subcutaneous pen injector (Trulicity) famotidine 20 mg tablet 20 mg PO BID 10/12/23 10/12/23 History liraglutide 0.6 mg/0.1 mL (18 mg/3 1.2 mg subcut DAILY 10/12/23 10/12/23 History mL) subcutaneous pen injector (Victoza 2-Sancho) Patient History Medical History Aspiration pneumonia Stroke Family History Mother Stroke Diabetes Myocardial infarction Father Myocardial infarction Sister Diabetes Brother Diabetes Social History Smoking Status: Unknown if ever smoked Hx Alcohol Use: No Hx Substance Use: No Preferred Language: Danish Communication Ability: Unable Communication Ability Comment: intubated sedated Sales Clerk Required: No Beliefs That Will Affect Care: None marital status: current occupational status: retired current occupation: former cook at [employer] How many Children do You have: 4 Assistive Devices: None Review of Systems Review of Systems: Negative except as per HPI Physical Exam Constitutional: WD/WN, vitals as above (Elderly obese, sitting up in bed no acute distress.) Neck: Thick. No JVD Respiratory: Coarse breath sounds. Fair air movement. No wheezing appreciated. Cardiovascular: Regular rhythm, mildly tachycardic. Grade 2/6 systolic murmur heard best at the apex. S4 gallop. Trace bilateral lower extremity edema Musculoskeletal: no cyanosis or clubbing, extremities motor strength 5/5 Psychiatric: A+Ox3, euthymic affect Results & Data Vital Signs (Past 12 Hours) Vital Signs Pulse Resp BP Pulse Ox O2 Del Method O2 Flow Rate FiO2 10/13/23 15:00 109/87 10/13/23 15:00 109 H 24 99 10/13/23 14:00 111/72 10/13/23 14:00 112 H 26 H 93 02/06/24 13:00 111/71 10/13/23 13:00 102 H 27 H 99 10/13/23 12:00 103 H 20 97 10/13/23 12:00 114/65 10/13/23 11:41 Mechanical Vent 10/13/23 11:00 108 H 21 98 10/13/23 11:00 101/60 10/13/23 10:00 100 H 23 96 Nasal Cannula 2 10/13/23 10:00 128/70 10/13/23 09:41 140/60 10/13/23 09:30 141/60 H 10/13/23 09:20 134/68 10/13/23 09:10 132/71 10/13/23 09:00 105 H 21 95 CPAP 30 10/13/23 09:00 147/66 H 10/13/23 08:00 123/71 10/13/23 08:00 88 18 97 10/13/23 08:00 Mechanical Vent 40 10/13/23 08:00 40 10/13/23 08:00 88 10/13/23 08:00 93 H 10/13/23 07:44 88 18 98 30 10/13/23 07:17 89/46 L 10/13/23 07:10 89 18 96 10/13/23 07:10 97/60 L Mechanical Vent 40 PG Care Time/CCT Total # of Minutes Spent Total Time Spent with Patient: Total time spent is greater than 50% in coordination of care (as documented) at patient's floor/unit and/or counseling patient: I spent a total of 75 minutes in the initial and follow-up examination, review of records, review of the imaging and cardiac monitoring data, discussion with nursing, family, and other physicians. In addition, time was spent on the formulation and implementation of a plan of care and all associated documentation. This time is exclusive of the time spent for the procedure. Coding Level of Care Code 55914 INT INP/OBS CARE 3/75MIN Diagnoses Non-ST elevation NE (NSTEMI) I21.4 Left bundle branch block I44.7 Ischemic cardiomyopathy I25.5 Coronary artery disease I25.10 Hypertension I10 Hyperlipidemia E78.5
[2023-10-13] MEDS: INSULIN ASPART PER UNIT CHARGE SC SCH (17:44)
[2023-10-13] MEDS: LANTUS PER UNIT CHARGE SC SCH (20:47)
[2023-10-14 04:59] LABS: Albumin Globulin Ratio 1.2 (0.9-2); Albumin Level 3.2 gm/dl (3.4-5.0); BUN Creatinine Ratio 18.5 (10-20); Bilirubin,Total 0.6 mg/dl (0.2-1.0); Calcium 7.6 mg/dl (8.6-10.3); Creatinine Clr Calc Pharmacy 30.9 ml/min; Est GFR (African American) 43.8 ml/min; Est GFR (Non-African American) 37.8 ml/min; Globulin 2.6 gm/dl (2.5-4.0); Potassium 4.3 mmol/L (3.5-5.1); Total Protein 5.8 gm/dl (6.0-8.3)
[2023-10-14 05:04] LABS: Hematocrit (blood only) 32.9 % (37.0-47.0); Hemoglobin 10.6 g/dl (12.0-16.0); Mean Corpuscular Hemoglobin 26.8 pg (25.0-34.0); Mean Corpuscular Hgb Conc 32.2 g/dL (32.0-36.0); Mean Corpuscular Volume 83.3 fL (80.0-100.0); Mean Platelet Volume 11.1 fL (9.4-12.4); Platelet Count 132 K/uL (130-400); RDW Coefficient of Variation 14.8 % (11.5-14.5); RDW Standard Deviation 45.3 fL (36.4-46.3); Red Blood Count 3.95 M/uL (4.20-5.40); White Blood Count 10.91 K/ul (4.8-10.8)
[2023-10-14 05:05] LABS: Basophils # (auto) 0.03 K/uL (0.00-0.20); Basophils % (auto) 0.3 %; Eosinophils # (auto) 0.03 K/uL (0.00-0.50); Eosinophils % (auto) 0.3 %; Immature Granulocytes # (auto) 0.04 K/uL (0.01-0.20); Immature Granulocytes % (auto) 0.4 %; Lymphocytes % (auto) 16.5 %; Monocytes # (auto) 0.73 K/uL (0.11-0.59); Monocytes % (auto) 6.7 %; Neutrophils # (auto) 8.28 K/uL (1.40-6.50); Neutrophils % (auto) 75.8 %; Ovalocytes 1+; Platelet Estimate Decreased (Normal)
[2023-10-14 05:12] LABS: Partial Thromboplastin Time 29 Seconds (21-31); Prothrombin Time 10.9 Seconds (9.0-12.0)
--- NOTE | 2023-10-14 08:09 | XRay Report ---
XR chest 1V portable HISTORY: Respiratory distress. eval lines/tubes/lung meyers COMPARISON: Chest 10/13/2023. FINDINGS: Endotracheal tube and nasogastric tube have been removed in the interval. Right jugular rani tral venous catheter terminates in the SVC. No pneumothorax. The heart remains mildly enlarged. Small bilateral pleural effusions and patchy bibasilar densities persist. Mild congestive changes again no sara. No acute fractures. IMPRESSION: 1. Mild congestive change and small bilateral pleural effusions again noted. 2. Patchy bibasilar densities persist. ACT 112: Negative or not required by law. Electronically signed by: Jerald Jim M.D. 10/14/2023 8:07 AM
--- NOTE | 2023-10-14 10:15 | Pharmacy Report ---
Pharmacy Glycemic Short Note 2 - Date of Service October 14, 2023 - Glycemic Short BSG Results (Last 24 hours): 10/13/23 10/13/23 10/13/23 10:14 11:20 12:13 Glucose POC Glucose 147 H 126 H POC Glucose (other) 136 H 10/13/23 10/13/23 10/13/23 13:19 14:13 16:21 Glucose POC Glucose 119 H 277 H 270 H POC Glucose (other) 10/13/23 10/14/23 10/14/23 19:56 04:20 07:28 Glucose 115 H POC Glucose 235 H 145 H POC Glucose (other) OUTPATIENT ANTIDIABETIC REGIMEN: * Lantus 50 units Q HS * Metformin 1000mg BID * A1c = 6.4% ASSESSMENT: 10/14 * 39 units SQ insulin given over last 24 hrs * Fasting BSG 115-145 this AM with 24 units basal on board; will continue current basal dose for now - may need to titrate upwards as diet progresses * Post-prandial BSGs elevated yesterday, however this could have been due to timing of insulin drip transition and basal deficiency until 2nd Lantus dose given at HS. Will escalate prandial dose slightly today and follow BSG pa ttern 10/13 * Type 2 diabetic admitted for chest pain, SOB, resp failure, cardiogenic +/- septic shock * Patient had been intubated, sedated and required pressor support. IV insulin infusion utilized for glycemic control * This AM, patient has been extubated, pressors have been weaned off and there are plans for clear liquid diet later today * Will begin to transition patient to SQ basal/bolus regimen at this time. Given uncertain PO intake and rather high outpt basal insulin doses, will opt to dose regimen utilizing weight and "moderate" stress level. PLAN FOR INPATIENT GLYCEMIC CONTROL: * Hold outpatient oral diabetes medications (metformin) * Basal insulin * Lantus 12 units SQ BID * Bolus insulin * NovoLog per scale ACHS * Goal Range: Low 110 mg/dL - High 140 mg/dL * Correction Factor: 25 mg/dL/unit * Nutritional / Prandial insulin per carb ratio of 1 unit per 8 grams CHO consumed
[2023-10-14] MEDS ORDERED: SENNOSIDES 8.8 MG/5 ML UDC PO ONE (10:40)
--- NOTE | 2023-10-14 10:45 | Electrocardiogram Report ---
Test Reason : Blood Pressure : / mmHG Vent. Rate : 115 BPM Atrial Rate : 115 BPM P-R Int : 138 ms QRS Dur : 128 ms QT Int : 370 ms P-R-T Axes : 066 -32 164 degrees QTc Int : 511 ms Sinus tachycardia Left axis deviation Left ventricular hypertrophy with QRS widening and repolarization abnormality ST depression in Lateral leads , consider ischemia Abnormal ECG When compared with ECG of 13-OCT-2023 10:42, ST more depressed Lateral leads Confirmed by Asa Crooks ([id number]) on 10/14/2023 10:44:37 AM Referred By: REFERRED SELF Confirmed By:Asa Crooks
[2023-10-14] MEDS: METOPROLOL TARTRATE 25 MG TAB PO SCH (11:39)
[2023-10-14] MEDS: SENNA 8.6 MG TAB PO ONE (11:39)
[2023-10-14] MEDS: ATORVASTATIN 40 MG TAB PO ONE (12:06)
--- NOTE | 2023-10-14 19:51 | Hospitalist Progress Note ---
Date of Service October 14, 2023 Assessment & Plan (1) Cardiogenic shock: Plan: Suspect cardiogenic shock, 3 v CAD on [facility] Secondary to likely physiological strain with three-vessel disease type II NJ likely strain from pneumonia. Patient became ill and decompensated fairly rapidly on the day of admission Patient was intubated for airway protection extubated on 6 Lactate 8.5, since trended down Procalcitonin is negative CTA PE ruled out PE troponin peaked at 51,000, [facility] suggests need for revascularization (2) Multifocal pneumonia: Plan: Patient with multifocal pneumonia seen on CT scan. Likely possibility of aspiration pneumonia during resuscitative efforts. Patient remains on broad- spectrum antibiotics, was on vancomycin but nasal swab negative remains on Zosyn therapy (previously on cefepime but changed to Zosyn for possibility of aspiration) treating Gram negative pneumonia (3) Hypertension: Plan: Antihypertensives held, patient with hypotensive shock on admission, blood pressure still low prohibiting the use of some antianginals (4) Hyperlipidemia: Plan: Atorvastatin held on admission (5) Chronic kidney disease: Plan: AGUSTIN with CKD3 Nephrology consulted (6) GERD (gastroesophageal reflux disease): Plan: IV PPI for gastric protection (7) Diabetes: Plan: - BSG 350 on admit exam. s/p 5u IV insulin. Repeat pending. ICU hypoglycemia protocol vs gtt History of type 2 diabetes on metformin and 50 units nightly of Lantus Patient recently was prescribed Trulicity but has not yet started this per family Plan Order Doppler for left arm this is pending at the time of this dictation CODE STATUS: Full code At time of admission/progression to [facility]. Discussed with family Admission and Anticipated Discharge Date Admission Date: October 12, 2023 Subjective Patient doing well since extubation no additional chest discomfort as she had on 10 13. Has some left arm swelling this was the site where she had a left heart heart cath access and also some IV fluids Patient continues to have some shortness of breath and coughing at times which is nonproductive Physical Exam Physical Exam: Patient is awake and alert she has a raspy voice her cardiac exam is distant regular without systolic murmur Her lungs remain with bilateral decreased breath sounds and dullness at both bases Extremities left upper extremity is with edema to hand due to dorsum and beginning part of the wrist but not higher up to her elbow or upper arm. There are no red streaks or anything to be concerned about cellulitis and she is on antibiotics to cover her pneumonia Results & Data Results & Data Vital Signs (Past 12 Hours) Vital Signs Temp Pulse Pulse Resp BP BP Pulse Ox 10/14/23 15:56 99.7 F H 105 H 26 H 132/88 93 10/14/23 13:41 99.9 F H 102 H 28 H 145/94 H 92 10/14/23 11:36 99.0 F 118 H 18 144/87 H 95 10/14/23 09:00 104 H 26 H 96 10/14/23 09:00 96/68 L 10/14/23 08:00 108 H 21 94 10/14/23 08:00 119/72 10/14/23 08:00 O2 Del Method O2 Flow Rate 10/14/23 15:56 Nasal Cannula 2 10/14/23 13:41 Nasal Cannula 2 10/14/23 11:36 Nasal Cannula 1 10/14/23 09:00 10/14/23 09:00 10/14/23 08:00 10/14/23 08:00 10/14/23 08:00 Room Air Laboratory Results Reviewed CBC reviewed chemistry PG Care Time/CCT Total # of Minutes Spent Total Time Spent with Patient: Total time spent is greater than 50% in coordination of care (as documented) at patient's floor/unit and/or counseling patient: Coding Level of Care Code 43934 SUB INP/OBS CARE 3/50MIN Diagnoses Cardiogenic shock R57.0 Multifocal pneumonia J18.9 Hypertension I10 Hyperlipidemia E78.5 Chronic kidney disease N18.9 GERD (gastroesophageal reflux disease) K21.9 Diabetes E11.9
[2023-10-14] MEDS: FAMOTIDINE 20 MG TAB PO SCH (20:59)
--- NOTE | 2023-10-14 23:34 | Ultrasound Report ---
Exam(s): US VENOUS LEFT UPPER EXTREMITY EXAM: US Duplex Left Upper Extremity Veins CLINICAL HISTORY: Reason for exam: edema. TECHNIQUE: Real-time duplex ultrasound scan of the left upper extremity veins integrating B-mode two-dimensional vascular structure, Doppler spectral analysis, color flow Doppler imaging and compression. COMPARISON: None. FINDINGS: Deep veins: Unremarkable. No DVT in the internal jugular, subclavian, axillary, or brachial veins. The veins demonstrate normal color flow, are normally compressible, with normal phasic flow and/or augmentation response. Superficial veins: There is absent compressibility with partial color- flow and internal echoes identified within the left proximal cephalic vein from the level of the shoulder to the wrist consistent with superficial thrombosis. Soft tissues: No acute findings. IMPRESSION: 1. No ultrasonographic evidence of deep venous thrombosis involving the left upper extremity. 2. Superficial thrombosis throughout the entire left cephalic vein as described above. Electronically signed by: Tiffany Ayala MD 10/14/23 23:34 PM
[2023-10-15 05:18] LABS: Basophils # (auto) 0.04 K/uL (0.00-0.20); Basophils % (auto) 0.4 %; Eosinophils # (auto) 0.02 K/uL (0.00-0.50); Eosinophils % (auto) 0.2 %; Hematocrit (blood only) 33.4 % (37.0-47.0); Hemoglobin 10.7 g/dl (12.0-16.0); Immature Granulocytes # (auto) 0.05 K/uL (0.01-0.20); Immature Granulocytes % (auto) 0.5 %; Lymphocytes # (auto) 1.83 K/uL (1.20-3.40); Lymphocytes % (auto) 16.6 %; Mean Corpuscular Hemoglobin 26.6 pg (25.0-34.0); Mean Corpuscular Volume 82.9 fL (80.0-100.0); Mean Platelet Volume 11.5 fL (9.4-12.4); Monocytes # (auto) 0.76 K/uL (0.11-0.59); Monocytes % (auto) 6.9 %; Neutrophils # (auto) 8.35 K/uL (1.40-6.50); Neutrophils % (auto) 75.4 %; Platelet Count 156 K/uL (130-400); RDW Coefficient of Variation 14.6 % (11.5-14.5); RDW Standard Deviation 44.4 fL (36.4-46.3); Red Blood Count 4.03 M/uL (4.20-5.40); White Blood Count 11.05 K/ul (4.8-10.8)
[2023-10-15 05:34] LABS: Albumin Globulin Ratio 1.3 (0.9-2); Albumin Level 3.4 gm/dl (3.4-5.0); BUN Creatinine Ratio 19.2 (10-20); Bilirubin,Total 0.7 mg/dl (0.2-1.0); Calcium 7.6 mg/dl (8.6-10.3); Creatinine Clr Calc Pharmacy 35.6 ml/min; Est GFR (African American) 50.5 ml/min; Est GFR (Non-African American) 43.6 ml/min; Globulin 2.7 gm/dl (2.5-4.0); Potassium 3.8 mmol/L (3.5-5.1); Total Protein 6.1 gm/dl (6.0-8.3)
[2023-10-15 05:49] LABS: Partial Thromboplastin Ratio 1.2; Partial Thromboplastin Time 33 Seconds (21-31); Prothrombin Time 10.7 Seconds (9.0-12.0)
--- NOTE | 2023-10-15 12:22 | Pharmacy Report ---
Pharmacy Glycemic Short Note 2 - Date of Service October 15, 2023 - Glycemic Short BSG Results (Last 24 hours): 10/14/23 10/14/23 10/15/23 16:23 20:52 04:45 Glucose 107 H POC Glucose 221 H 215 H 10/15/23 10/15/23 07:34 11:32 Glucose POC Glucose 119 H 234 H OUTPATIENT ANTIDIABETIC REGIMEN: * Lantus 50 units Q HS * Metformin 1000mg BID * A1c = 6.4% ASSESSMENT: 10/15 * 49 units SQ given over last 24 hrs, consumed 1 decent sized CHO meal in AM however the following two meals were low carb * Fasting BSG remains at goal with 24 units basal on board - no change * Post-prandial hyperglycemia again observed despite increase in prandial Novolog doses - will continue to up-titrate 10/14 * 39 units SQ insulin given over last 24 hrs * Fasting BSG 115-145 this AM with 24 units basal on board; will continue current basal dose for now - may need to titrate upwards as diet progresses * Post-prandial BSGs elevated yesterday, however this could have been due to timing of insulin drip transition and basal deficiency until 2nd Lantus dose given at HS. Will escalate prandial dose slightly today and follow BSG pattern 10/13 * Type 2 diabetic admitted for chest pain, SOB, resp failure, cardiogenic +/- septic shock * Patient had been intubated, sedated and required pressor support. IV insulin infusion utilized for glycemic control * This AM, patient has been extubated, pressors have been weaned off and there are plans for clear liquid diet later today * Will begin to transition patient to SQ basal/bolus regimen at this time. Given uncertain PO intake and rather high outpt basal insulin doses, will opt to dose regimen utilizing weight and "moderate" stress level. PLAN FOR INPATIENT GLYCEMIC CONTROL: * Hold outpatient oral diabetes medications (metformin) * Basal insulin * Lantus 12 units SQ BID * Bolus insulin * NovoLog per scale ACHS * Goal Range: Low 110 mg/dL - High 140 mg/dL * Correction Factor: 215 mg/dL/unit * Nutritional / Prandial insulin per carb ratio of 1 unit per 5 grams CHO consumed
[2023-10-15] MEDS: FUROSEMIDE 40 MG/4 ML VIAL IV ONE (15:07)
--- NOTE | 2023-10-15 15:23 | XRay Report ---
XR chest 1V portable CLINICAL HISTORY: Shortness of breath. COMPARISON STUDY: Chest CT October 12, 2023. Chest radiograph 10/14/2023. FINDINGS: Right internal jugular central line is unchanged in position. There is no pneumothorax. Sma ll bilateral pleural effusions with extensive bibasilar opacities have progressed. Pulmonary edema dasilva s mildly progressed. Cardiomediastinal silhouette is stable. IMPRESSION: 1. Progression of pulmonary edema. 2. Increase in small bilateral pleural effusions with bibasilar opacities which favor superimposed pn eumonia. ACT 112: Negative or not required by law. Electronically signed by: Arthur Nash M.D. 10/15/2023 3:21 PM
[2023-10-15] MEDS: MoRPHine SULFATE 2 MG/ML CARP IV STA (15:32)
[2023-10-15] MEDS: OPTIRAY 320 125ml IV ONE (15:43)
[2023-10-15] MEDS: MoRPHine SULFATE 2 MG/ML CARP ONE (15:45)
[2023-10-15] MEDS: Heparin IV Adult Wt-Based Standard w/ INITIAL Bolus Protocol IV SCH (15:46)
--- NOTE | 2023-10-15 15:52 | Electrocardiogram Report ---
Test Reason : Blood Pressure : / mmHG Vent. Rate : 111 BPM Atrial Rate : 111 BPM P-R Int : 138 ms QRS Dur : 132 ms QT Int : 366 ms P-R-T Axes : 073 -27 181 degrees QTc Int : 497 ms Sinus tachycardia Left ventricular hypertrophy with QRS widening and repolarization abnormality ST depression in Lateral leads , consider ischemia Abnormal ECG When compared with ECG of 13-OCT-2023 17:52, No significant change was found Confirmed by Asa Crooks ([id number]) on 10/15/2023 3:52:36 PM Referred By: REFERRED SELF Confirmed By:Asa Crooks
--- NOTE | 2023-10-15 16:02 | CT Scan Report ---
CT ANGIOGRAPHY OF THE CHEST, PULMONARY EMBOLUS PROTOCOL CLINICAL HISTORY: Shortness of breath. COMPARISON STUDY: Chest CT October 12, 2023. Chest radiograph performed earlier today. TECHNIQUE: Following IV administration of 117 mL of Optiray, helical axial images of the chest were o btained utilizing the pulmonary embolus protocol. Maximal intensity projections and sagittal and cor onal reformats were viewed on an independent 3D workstation. IV contrast was administered without co mplication. Automated exposure control was utilized for the study. A dose lowering technique was ut ilized adhering to the principles of ALARA. CT DOSE: 991.96 mGy.cm FINDINGS: Right internal jugular central line is in place. No pulmonary emboli are identified. Moder ate cardiomegaly. No pericardial effusion is present. Reflux of contrast into the IVC and hepatic vei ns is present. Moderate bilateral pleural effusions have increased in size since chest CT of October 12, 2023. Extensive consolidation lungs has mildly improved since prior CT. Interstitial thickening p ersists. There are additional groundglass opacities within the lungs. Mild bronchial wall thickening is present. Mildly enlarged precarinal lymph node measures 1.7 x 1.2 cm. This may be reactive/related to pulmonary edema. No acute fractures within the bony thorax. Visualized portions of the upper abdo men are unremarkable. IMPRESSION: 1. No pulmonary emboli identified. 2. Increase in size of moderate bilateral pleural effusions, left larger than right. 3. Mild improvement in extensive consolidation within the lungs since prior CT. This favors superimpo sed pneumonia or aspiration pneumonitis. 4. Persistent pulmonary edema. 5. Cardiomegaly. ACT 112: Negative or not required by law. Electronically signed by: Arthur Nash M.D. 10/15/2023 4:00 PM
[2023-10-15] MEDS ORDERED: fentaNYL BOLUS from BAG IV PRN (16:16)
[2023-10-15] MEDS ORDERED: STAT IV Infusion **Titration per Protocol STA ×2 (16:16→16:48)
--- NOTE | 2023-10-15 16:18 | Procedure Note ---
Procedure Note Date of Service October 15, 2023 Note INTUBATION PROCEDURE NOTE: Dr. Geo Benites A time-out was completed verifying correct patient, procedure, site, positioning. Patient was evaluated and required intubation for hypoxic respiratory failure. Sedative agent used: 25 mg Paralysis agent used: None Emergent consent was implied given patients rapidly declining clinical status and need for airway protection. Number of attempts: 1 The patient was prepared in the appropriate fashion. Sedation was achieved utilizing etomidate. The patient was easily ventilated using [id number] to achieve adequate oxygenation. A 7.5 Lao endotracheal tube was placed under [employer] to 24 cm at the lip. The stylette was removed and balloon was inflated with 10mL of air. Appropriate Colorimetric change was appreciated. Bilateral breath sounds were heard without air sounds in the abdomen. Post Intubation Chest X-ray ordered. Patient tolerated the procedure well and there were no immediate complications. Coding CPT Codes Resuscitation - Resuscitation: 39331 Endotracheal Intubation, emergency ([id number]) [facility] Procedure Codes (Charges) Resuscitation Resuscitation: 60645 Endotracheal Intubation, emergency
[2023-10-15] MEDS: RAPID SEQUENCE INDUCTION BAG ONE (16:29)
[2023-10-15] MEDS: fentaNYL citrate 2,500 MCG/250 ML BAG IV SCH (16:29)
[2023-10-15] MEDS: fentaNYL citrate 2,500 MCG/250 ML BAG IV ONE (16:29)
[2023-10-15] MEDS: HEPARIN SODIUM/DEXTROSE 25,000 UNITS/500 ML BAG IV SCH (16:32)
[2023-10-15] MEDS: HEPARIN SOD (PORCINE) 1000 UNIT/ML IV ONE (16:32)
--- NOTE | 2023-10-15 16:34 | Discharge Summary ---
Date of Service October 15, 2023 Admission HPI Per Admitting Provider Chandrika is a 77yo female who presented to the ER with midsternal chest pain, cough, and congestion. On ER provider review patient was diaphoretic and acute distress. EKG showed ST depressions in the lateral leads with T wave inversions and a left bundle branch block. Heart alert was activated. No history is obtainable from the patient as she is intubated and taken emergently to the [facility]. Collateral is collected from ER provider and family. Per family patient was in her normal state of health with no infectious symptoms, fever, chills and no episodes of chest pain up until today. Reports she went to the [employer] yesterday and felt completely fine. Today around 12 PM she developed sudden onset substernal chest pain. Subsequently around 3 PM developed shortness of breath and difficulty breathing. On ER assessment patient was found to be severely ill-appearing and hypotensive. EKG showed wide QRS [address] depressions in the lateral leads and baseline EKG in 2008 with no evidence of left bundle branch block QRS 88 sinus at that time. Patient's lactate was 8.5, BSG 355. Leukocytosis of 20.83 without granulocyte expansion but with neutrophilic predominance and an LR of 8. Chest x-ray showed mixed interstitial ovular opacity suggestive of pulmonary edema versus multifocal pneumonia. Patient was seen as a heart alert by cardiology and taken emergently to the [facility]. Differential includes PE for which a CTA is pending, multifocal pneumonia although had abrupt onset of symptoms and time course somewhat in discussing with this, and ACS. Principal Diagnosis Severe multivessel CAD Discharge Exam Patient is intubated and sedated Her lungs remain with bilateral decreased breath sounds and dullness at both bases Extremities left upper extremity is with edema to hand due to dorsum and beginning part of the wrist but not higher up to her elbow or upper arm. There are no red streaks or anything to be concerned about cellulitis and she is on antibiotics to cover her pneumonia Discharge Data Allergies Allergy/AdvReac Type Severity Reaction Status Date / Time No Known Allergies Allergy Unknown NONE KNOWN Verified 04/15/22 09:04 Consultations 10/12/23 18:51 Consult Manager Of Internal Audit Routine 10/13/23 13:09 Consult Cardiology Routine 10/15/23 16:02 Burn CD for patient Stat Procedures Performed Operation Date: 10/12/23 18:00 Actual Procedures p Cath, Coronaries ONLY (no LV) - Yg Plascencia MD, PhD Ordered Studies 10/12/23 16:59 CT angio chest PE protocol Stat 10/12/23 17:15 CT abd pelvis IV con only Stat 10/12/23 17:55 CL Cath Imgs for PACS use only Stat 10/12/23 19:48 CT head/brain wo con Stat 10/14/23 11:50 US venous doppler UE LT Urgent 10/15/23 15:06 CT angio chest PE protocol Stat Hospital Course (1) Cardiogenic shock: Suspect cardiogenic shock, 3 v CAD on [facility] Secondary to likely physiological strain with three-vessel disease type II NJ likely strain from pneumonia. Patient became ill and decompensated fairly rapidly on the day of admission Patient was intubated for airway protection extubated on 6 Lactate 8.5, since trended down Procalcitonin is negative CTA PE ruled out PE troponin peaked at 51,000, [facility] suggests need for revascularization. ECHO: showed 35-40% EF with inferior wall akinesis On 10/15/23, Patient again became SOB this afternoon after complaining of indigestion. supplemental oxygen worsened to about [address] chest with PE protocol was ordered which was negative for P/E however showed worseneing pleural effusions. Patient received 40 mg of lasix and 2 mg of morphine. Patient had to be intubated and transferred patient to ICU in [place]. Patient will have a CABG there. Placed on IV heparin for above, patient also had Order Doppler for left arm on 10/14 that showed: Superficial thrombosis throughout the entire left cephalic vein (2) Multifocal pneumonia: Patient with multifocal pneumonia seen on CT scan. Likely possibility of aspiration pneumonia during resuscitative efforts. Patient remains on broad- spectrum antibiotics, was on vancomycin but nasal swab negative remains on Zosyn therapy (previously on cefepime but changed to Zosyn for possibility of aspiration) treating Gram negative pneumonia (3) Hypertension: Antihypertensives held, patient with hypotensive shock on admission, blood pressure still low prohibiting the use of some antianginals (4) Hyperlipidemia: Atorvastatin held on admission (5) Chronic kidney disease: AGUSTIN with CKD3 Nephrology consulted (6) GERD (gastroesophageal reflux disease): IV PPI for gastric protection (7) Diabetes: - BSG 350 on admit exam. s/p 5u IV insulin. Repeat pending. ICU hypoglycemia protocol vs gtt History of type 2 diabetes on metformin and 50 units nightly of Lantus Patient recently was prescribed Trulicity but has not yet started this per family Plan family at bedside. Total Time Total Time Spent Total Time Spent (In Minutes): 32 Discharge Plan Discharge Items Reason For Visit: SHOCK, CARDIOGENIC Follow-up/Referrals: Juma Palacios MD [Primary Care Provider] - Stand-Alone Forms: [facility] Medications and DC Order Prescriptions: No Action aspirin 81 mg tablet,chewable 81 mg PO DAILY atorvastatin 20 mg tablet 20 mg PO DAILY lisinopril-hydrochlorothiazide 20-12.5 mg tablet 1 tab PO DAILY metformin 1,000 mg tablet 1,000 mg PO BID pantoprazole 40 mg tablet,delayed release (DR/EC) 40 mg PO DAILY insulin glargine [Lantus Solostar U-100 Insulin] 100 unit/mL (3 mL) insulin pen 50 unit subcut QPM alendronate 70 mg tablet 70 mg PO WK Trulicity 0.75 mg/0.5 mL pen injector 0.75 mg SUBCUT WK famotidine 20 mg tablet 20 mg PO BID Victoza 2-Sancho 0.6 mg/0.1 mL (18 mg/3 mL) pen injector 1.2 mg SUBCUT DAILY Admission Data Admit Date/Time: 10/12/23 18:51 Attending Provider: Reggie Carbajal Admit Provider: Emile Felix Primary Care Provider: Juma Palacios Other Providers: Geo Benites; Yg Plascencia Coding Level of Care Code 00554 INP/OBS DISCH >30 MIN Diagnoses Cardiogenic shock R57.0 Multifocal pneumonia J18.9 Hypertension I10 Hyperlipidemia E78.5 Chronic kidney disease N18.9 GERD (gastroesophageal reflux disease) K21.9 Diabetes E11.9
[2023-10-15] MEDS ORDERED: PROPOFOL BOLUS FROM BAG IV PRN (16:48)
--- NOTE | 2023-10-15 16:48 | XRay Report ---
XR chest 1V portable HISTORY: 77 years-old Female s/p intubation acute respiratory failure COMPARISON: 10/15/2023 TECHNIQUE: AP view of the chest FINDINGS: Endotracheal tube overlies the midline, 3 cm superior to the shad. Right IJ central venous catheter distal tip projects over the superior cavoatrial junction. No pneumothorax. Diffuse mixed interstitial and alveolar opacities with layering pleural effusions an d bibasilar dense consolidation. Bones appear grossly intact. IMPRESSION: 1. Endotracheal tube and right IJ positioning as above. 2. Cardiomegaly with unchanged extensive mixed interstitial and alveolar opacities. 3. Moderate-sized layering pleural effusions. ACT 112: Negative or not required by law. The above report was generated using voice recognition software. It may contain grammatical, syntax o r spelling errors. Electronically signed by: Wong Mcpherson M.D. 10/15/2023 4:47 PM
[2023-10-15] MEDS: propofoL 1,000 MG/100 ML VIAL IV SCH (16:54)
[2023-10-15 16:59] LABS: Influenza A virus by PCR Negative (Neg); Influenza B virus by PCR Negative (Neg); RSV by PCR Negative (Neg); SARS CoV2 RNA(COVID-19) Ceph NEGATIVE (Negative)
--- NOTE | 2023-10-15 17:06 | Critical Care Progress Note ---
Date of Service October 15, 2023 Assessment & Plan (1) Pulmonary edema cardiac cause: (2) Chronic kidney disease: (3) Hypertension: (4) Hyperlipidemia: (5) GERD (gastroesophageal reflux disease): (6) Diabetes: (7) Obesity: (8) Cardiogenic shock: (9) Shock: (10) Hypoxic respiratory failure: (11) Aspiration pneumonia: Plan 77-year-old female with a history of cardiac ischemia and multifocal pneumonia who was recently transferred off the ICU service and is now readmitted to the ICU service. She had worsening respiratory distress this afternoon. I evaluated the patient and gave her 40 mg of IV Lasix and 2 mg morphine. EKG was obtained which revealed diffuse nonspecific ischemic changes. I sent her for stat CT chest to evaluate for PE. She had evidence of progressive pulmonary edema, bibasilar atelectasis/pneumonia and bilateral pleural effusions. She ultimately had worsening respiratory distress and was emergently intubated due to severe hypoxemia and increased work of breathing. We reached out to [facility] who accepted the patient for transfer for higher level of care. I discussed the case with Dr. Plascencia of cardiology who agrees that the patient will ultimately require coronary artery bypass grafting. Patient was started on propofol and fentanyl infusion to promote ventilator synchrony and patient comfort. She was also started on heparin infusion due to ongoing coronary ischemia. Care was coordinated with the RT, hospitalist service, cardiology and bedside nursing. Patient's was updated at bedside on numerous occasions. CRITICAL CARE TIME - I have personally spent 97 minutes of critical care time in the direct management of this patient. This is a life/limb threatening event. This includes time spent evaluating patient, direct bedside care, chart review, placing orders, interpretation of diagnostic studies, discussion with consultants, patient, and family members, as well as other required patient management activities. This time is exclusive of all separately billable procedures, and teaching time and separate from and in addition to any other critical care service time. Admission and Anticipated Discharge Date Admission Date: October 12, 2023 Results & Data Results & Data Vital Signs (Past 12 Hours) Vital Signs Temp Pulse Pulse Resp BP BP Pulse Ox 10/15/23 16:20 117 H 20 97 10/15/23 15:45 130 H 32 H 94 10/15/23 13:00 112 H 29 H 10/15/23 12:00 109 H 28 H 10/15/23 11:00 96 H 31 H 93 10/15/23 10:00 92 H 27 H 96 10/15/23 09:00 109 H 31 H 94 10/15/23 08:06 109 H 27 H 98 10/15/23 08:06 123/60 10/15/23 08:04 36.8 C 108 H 20 123/60 98 10/15/23 08:00 110 H 21 98 10/15/23 07:00 84 19 97 10/15/23 06:00 81 19 97 O2 Del Method O2 Flow Rate FiO2 10/15/23 16:20 100 10/15/23 15:45 High Flow Nasal Cannula 60 100 10/15/23 13:00 10/15/23 12:00 10/15/23 11:00 10/15/23 10:00 10/15/23 09:00 10/15/23 08:06 10/15/23 08:06 10/15/23 08:04 Room Air 10/15/23 08:00 10/15/23 07:00 10/15/23 06:00 Coding Level of Care Code 80999 CRITICAL CARE EA ADD 30M Additional Critical Care Time Additional 30min Critical Care Time: Yes - 94938 Total Critical Care Time: 97 Diagnoses Pulmonary edema cardiac cause I50.1 Chronic kidney disease N18.9 Hypertension I10 Hyperlipidemia E78.5 GERD (gastroesophageal reflux disease) K21.9 Diabetes E11.9 Obesity E66.9 Cardiogenic shock R57.0 Shock R57.9 Hypoxic respiratory failure J96.91 Aspiration pneumonia J69.0 Additional Codes Critical Care Time - Additional 30min Critical Care Time: Yes - 71250 ([id number])
--- NOTE | 2023-10-15 17:09 | Cardiology Progress Note ---
Date of Service October 15, 2023 Assessment & Plan (1) Coronary artery disease: Plan: Severe multivessel coronary disease not amenable to PCI. Referral to tertiary center for coronary artery bypass grafting or if felt excessive risk then complex staged multivessel PCI with atherectomy. Guideline directed medical therapy for secondary prevention including aspirin, statin, beta-maria victoria and JEISON inhibitor/ARB/Entresto as tolerated. Once her pneumonia is adequately treated and pleural effusion/pulmonary edema has resolved she would benefit from coronary artery bypass grafting as it is unlikely that she will remain adequately stable at home. (2) Ischemic cardiomyopathy: Plan: Moderate LV systolic dysfunction with wall motion abnormalities consistent with prior RCA territory infarct/occlusion. Currently with diffuse ST depressions suggestive of global ischemia. Physical exam and radiographic evidence of volume overload. Continue loop diuretic. Her previous acute renal failure has improved but would be cautious with diuresis and avoid nephrotoxic agents. The ischemia may be exacerbating her mitral regurgitation thereby increasing pulmonary edema. Admission and Anticipated Discharge Date Admission Date: October 12, 2023 Subjective Patient had been doing fairly well with plan to complete antibiotic therapy and have outpatient referral for cardiac surgery. However, today she had onset of indigestion and sudden shortness of breath. She was sent emergently to the CT scanner to exclude pulmonary embolism which fortunately demonstrated no evidence of pulmonary embolism. However, she did have worsening of her pleural effusions and pulmonary edema. He has no ongoing chest discomfort but continues to struggle to breathe. She was given Lasix. Our original plan was for the patient to get antibiotics and if unstable or not progressing a transfer to tertiary center was recommended so that she could proceed with cardiac surgery when appropriate. It seems that we are in this scenario now and therefore we are requesting transfer to tertiary center at this time. This was all discussed with the patient's who is in agreement. To review her cardiac workup: Cath showed distal left main 50%, severe subtotal occlusion in the LAD, severe circumflex disease and occluded RCA. Echo demonstrated EF of 35 to 40% with significant mitral regurgitation. Global hypokinesis with akinesis of the inferior wall consistent with findings on the catheterization. Review of Systems Review of Systems: Negative except as per HPI Physical Exam Constitutional: Elderly, obese. Acute respiratory distress. Appears ill. Neck: JVD Respiratory: Bilateral dullness left greater than right. Diffuse crackles. Poor air movement. Cardiovascular: Regular rhythm with a tachycardic rate. Grade 2/6 systolic murmur. Neurologic: Cognition was intact. Speech is limited (patient now intubated). And patient is sedated. Results & Data Vital Signs (Past 12 Hours) Vital Signs Temp Pulse Pulse Resp BP BP Pulse Ox 10/15/23 16:20 117 H 20 97 10/15/23 15:45 130 H 32 H 94 10/15/23 13:00 112 H 29 H 10/15/23 12:00 109 H 28 H 10/15/23 11:00 96 H 31 H 93 10/15/23 10:00 92 H 27 H 96 10/15/23 09:00 109 H 31 H 94 10/15/23 08:06 109 H 27 H 98 10/15/23 08:06 123/60 10/15/23 08:04 36.8 C 108 H 20 123/60 98 10/15/23 08:00 110 H 21 98 10/15/23 07:00 84 19 97 10/15/23 06:00 81 19 97 10/15/23 05:00 110 H 34 H 92 O2 Del Method O2 Flow Rate FiO2 10/15/23 16:20 100 10/15/23 15:45 High Flow Nasal Cannula 60 100 10/15/23 13:00 10/15/23 12:00 10/15/23 11:00 10/15/23 10:00 10/15/23 09:00 10/15/23 08:06 10/15/23 08:06 10/15/23 08:04 Room Air 10/15/23 08:00 10/15/23 07:00 10/15/23 06:00 10/15/23 05:00 PG Care Time/CCT Total # of Minutes Spent Total Time Spent with Patient: Total time spent is greater than 50% in coordination of care (as documented) at patient's floor/unit and/or counseling patient: Coding Level of Care Code 16885 SUB INP/OBS CARE 3/50MIN Diagnoses Coronary artery disease I25.10 Ischemic cardiomyopathy I25.5
[2023-10-15 17:20] LABS: iSTAT Allen Test Pass; iSTAT Art Bld Gas pCO2 Correct 47 mmHg (35-46); iSTAT Art Bld Gas pH Corrected 7.254 (7.35-7.45); iSTAT Arterial Blood Gas HCO3 21 meg/L (19-24); iSTAT Arterial Blood Gas pCO2 48 mmHg (35-46); iSTAT Arterial Blood Gas pH 7.25 (7.35-7.45); iSTAT Arterial Blood Gas pO2 85 mmHg (80-95); iSTAT Arterial Blood Gas pO2 C 84; iSTAT Carbon Dioxide 22 mmol/L (24-31); iSTAT FiO2 65 %; iSTAT Hematocrit 34 % (37-47); iSTAT Hemoglobin 11.6 g/dl (12.0-16.0); iSTAT Potassium 3.9 mmol/L (3.3-5.0); iSTAT Site R Radial; iSTAT Sodium 132 mmol/L (135-144)
[2023-10-15] MEDS: PROPOFOL IV EMULSION 10 MG/ML 100 ML VIAL IV ONE (17:37)
[2023-10-16 12:19] LABS: A calco-baum cmplx NotReported Not Detected (NotDetected); Bact fragilis Not Reported Not Detected (NotDetected); Blood Culture Id Panel See PCR Comment (NotDetected); C auris Not Reported Not Detected (NotDetected); Calbicans Not Reported Not Detected (NotDetected); Candida glabrata Not Reported Not Detected (NotDetected); Candida krusei Not Reported Not Detected (NotDetected); Cneoformans/gatti Not Reported Not Detected (NotDetected); Cparapsilosis Not Reported Not Detected (NotDetected); E cloacae compx Not Reported Not Detected (NotDetected); Efaecalis Not Reported Not Detected (NotDetected); Efaecium Not Reported Not Detected (NotDetected); Enterobacterales Not Reported Not Detected (NotDetected); Escherichia coli Not Reported Not Detected (NotDetected); H influenzae Not Reported Not Detected (NotDetected); K aerogenes Not Reported Not Detected (NotDetected); Koxytoca Not Reported Not Detected (NotDetected); Kpneumoniae grp Not Reported Not Detected (NotDetected); Lmonocyt Not Reported Not Detected (NotDetected); N meningitidis Not Reported Not Detected (NotDetected); P aeruginosa Not Reported Not Detected (NotDetected); Proteus spp Not Reported Not Detected (NotDetected); Salmonella spp Not Reported Not Detected (NotDetected); Smarcescens Not Reported Not Detected (NotDetected); Staph lugdunensis Not Reported Not Detected (NotDetected); Staph spp. Not Reported DETECTED (NotDetected); Staphaureus Not Reported Not Detected (NotDetected); Staphepi Not Reported Not Detected (NotDetected); Stenmaltophilia Not Reported Not Detected (NotDetected); Strep agal(GrpB) Not Reported Not Detected (NotDetected); Strep pneum Not Reported Not Detected (NotDetected); Strep pyog (GrpA) Not Reported Not Detected (NotDetected); Strep spp Not Reported Not Detected (NotDetected)
[2023-10-16 12:45] LABS: Staphylococcus spp. DETECTED (NotDetected)
--- NOTE | 2023-10-19 11:17 | Pharmacy Report ---
ED Pharmacist Culture FollowUP - Culture Follow Up Note Date of Service: October 19, 2023 Notes:: FINAL BLCX results from 10/12 forwarded to the ED today. Patient had been admitted to [facility] however was transferred to [facility] on 10/15. I called [facility] [place] and she is still admitted at this location. BLCX results and BCID2 results faxed to [phone] with receipt of successful transmission.
== END 2023-10-15 19:03 | disposition short-term general hospital (02) | DRG 208 ==
LOC: ED 16:06 → CC 18:10 → 1E 18:51 → SUATTDRO 18:51 → 1E 19:30
PROC: CLB.CCO (2023-10-12 18:00)